=== PATIENT | female | born 1950 | race Caucasian/White ===

== ENCOUNTER 2017-08-13 02:07 | Observation (INO) | payer MEDICARE, BC ==
[~2017-08-13] VITALS: Ht 165.1 cm; Wt 82.0 kg
[2017-08-13 02:09] VITALS: BP 193/86; PULSE 112; RESP 16; TEMP 99.4; O2SAT 97
[2017-08-13 02:30] VITALS: RESP 19; O2SAT 99
[2017-08-13] MEDS ORDERED: SODIUM CHLOR 0.9% 1000 ML INJ 1,000 ML IV SCH (02:43)
[2017-08-13] MEDS ORDERED: SODIUM CHLORIDE 0.9% FLUSH 5 ML FLUSH IV FLUSH PRN (02:45)
--- NOTE | 2017-08-13 02:53 | PD ---
HPI Chief Complaint: Altered Mental Status Time Seen by Provider: 02:34 Travel History International Travel<30 days: No Contact w/Intl Traveler<30days: No Traveled to known affect area: No History of Present Illness HPI The patient is a 67-year-old female who presents to the emergency department for confusion. The states the patient underwent a partial colectomy for possible colon cancer 1 week ago Tuesday at [facility] by Dr. Hutchinson. The states the patient has had some increasing "nervousness" over the last week, however, today became confused. He also states the patient had one episode of fecal incontinence at home 2 days after the surgery. The states the patient has a history of bipolar affective disorder and had a manic episode 30 years ago with similar features. The patient denies any current physical complaints, but is a somewhat limited historian. She does complain of mild dysuria but denies any abdominal pain. She denies any headache, chest pain, or shortness of breath. The patient's primary physician is Dr. Daniels. The states the patient has been taken Tylenol for pain, states she has not been taking any narcotics for the postoperative pain. [facility] Past Medical History Narrative Medical Hypertension, hyperlipidemia, GERD Cardiovascular Problems: Yes (HTN) Past Surgical History Narrative Surgical Partial colectomy for colon cancer Social History Alcohol Use: No Tobacco Use: No Substance Use: No Allergies-Medications (Allergen,Severity, Reaction): Coded Allergies: No Known Allergies (Unverified , 08/13/17) Review of Systems ROS Limitations: Altered Mental Status, Poor Historian Except as stated in HPI: all other systems reviewed are Neg General / Constitutional: No: Fever Cardiovascular: No: Chest Pain or Discomfort Respiratory: No: Shortness of Breath Gastrointestinal: Positive: Other (surgery 1 week ago), No: Nausea, Vomiting, Abdominal Pain Genitourinary: Positive: Dysuria Neurologic: Positive: Change in Mentation Physical Exam Narrative GENERAL: Awake, alert, somewhat confused 67-year-old female who appears her stated age. SKIN: Focused skin assessment warm/dry. HEAD: Atraumatic. Normocephalic. EYES: Pupils equal and round. Pupils are 4 mm bilateral and reactive. ENT: No nasal bleeding or discharge. Slightly dry mucous membranes. NECK: Trachea midline. No JVD. CARDIOVASCULAR: Regular, tachycardic with a heart rate of 110. RESPIRATORY: No accessory muscle use. Clear to auscultation. Breath sounds equal bilaterally. GASTROINTESTINAL: Abdomen soft, postoperative scars noted, mild discomfort right lower quadrant. MUSCULOSKELETAL: No obvious deformities. No clubbing. No cyanosis. No edema. NEUROLOGICAL: Awake and alert. Alert and oriented to person, month, year, and benzol still operator. Slightly slow to answer questions. PSYCHIATRIC: Odd affect. Data Data Last Documented VS Vital Signs Date Time Temp Pulse Resp B/P (MAP) Pulse Ox O2 Delivery O2 Flow Rate FiO2 08/13/17 02:30 105 18 98 Room Air 08/13/17 02:30 08/13/17 02:09 99.4 Orders Orders Electrocardiogram (08/13/17 02:43) Ammonia (08/13/17 02:43) Complete Blood Count With Diff (08/13/17 02:43) Comprehensive Metabolic Panel (08/13/17 02:43) Creatine Kinase (Cpk) (08/13/17 02:43) Prothrombin Time / Inr (Pt) (08/13/17 02:43) Act Partial Throm Time (Ptt) (08/13/17 02:43) Troponin I (08/13/17 02:43) Thyroid Stimulating Hormone (08/13/17 02:43) Urinalysis - C+S If Indicated (08/13/17 02:43) Lactic Acid Sepsis Protocol (08/13/17 02:43) Blood Culture (08/13/17 02:43) Chest, Single Ap (08/13/17 02:43) Ct Brain W/O Iv Contrast(Rout) (08/13/17 02:43) Blood Glucose (08/13/17 02:43) Ecg Monitoring (08/13/17 02:43) Iv Access Insert/Monitor (08/13/17 02:43) Oximetry (08/13/17 02:43) Sodium Chloride 0.9% Flush (Ns Flush) (08/13/17 02:45) Sodium Chlor 0.9% 1000 Ml Inj (Ns 1000 M (08/13/17 02:43) Drug Screen, Random Urine (08/13/17 02:43) Alcohol (Ethanol) (08/13/17 02:43) Ct Abd/Pel W/O Iv Contrast (08/13/17 ) Consult General Surgery (08/13/17 ) Labs Laboratory Tests Test 08/13/17 02:40 08/13/17 04:05 White Blood Count 8.1 TH/MM3 Red Blood Count 4.40 MIL/MM3 Hemoglobin 10.1 GM/DL Hematocrit 32.8 % Mean Corpuscular Volume 74.6 FL Mean Corpuscular Hemoglobin 23.0 PG Mean Corpuscular Hemoglobin Concent 30.8 % Red Cell Distribution Width 26.4 % Platelet Count 408 TH/MM3 Mean Platelet Volume 8.3 FL Neutrophils (%) (Auto) 74.0 % Lymphocytes (%) (Auto) 11.9 % Monocytes (%) (Auto) 10.9 % Eosinophils (%) (Auto) 2.2 % Basophils (%) (Auto) 1.0 % Neutrophils # (Auto) 6.0 TH/MM3 Lymphocytes # (Auto) 1.0 TH/MM3 Monocytes # (Auto) 0.9 TH/MM3 Eosinophils # (Auto) 0.2 TH/MM3 Basophils # (Auto) 0.1 TH/MM3 CBC Comment AUTO DIFF Differential Comment AUTO DIFF CONFIRMED Prothrombin Time 11.4 SEC Prothromb Time International Ratio 1.0 RATIO Activated Partial Thromboplast Time 23.4 SEC Blood Urea Nitrogen 13 MG/DL Creatinine 0.99 MG/DL Random Glucose 135 MG/DL Total Protein 7.0 GM/DL Albumin 3.6 GM/DL Calcium Level 8.9 MG/DL Alkaline Phosphatase 88 U/L Aspartate Amino Transf (AST/SGOT) 21 U/L Alanine Aminotransferase (ALT/SGPT) 36 U/L Total Bilirubin 0.8 MG/DL Sodium Level 145 MEQ/L Potassium Level 3.2 MEQ/L Chloride Level 111 MEQ/L Carbon Dioxide Level 24.4 MEQ/L Anion Gap 10 MEQ/L Estimat Glomerular Filtration Rate 56 ML/MIN Lactic Acid Level 1.5 mmol/L Ammonia 46 MCMOL/L Total Creatine Kinase 173 U/L Troponin I 0.02 NG/ML Thyroid Stimulating Hormone 3rd Gen 0.855 uIU/ML Ethyl Alcohol Level LESS THAN 3 MG/DL Urine Color YELLOW Urine Turbidity CLEAR Urine pH 5.5 Urine Specific [place] 1.013 Urine Protein NEG mg/dL Urine Glucose (UA) NEG mg/dL Urine Ketones NEG mg/dL Urine Occult Blood NEG Urine Nitrite NEG Urine Bilirubin NEG Urine Urobilinogen LESS THAN 2.0 MG/DL Urine Leukocyte Esterase NEG Urine RBC LESS THAN 1 /hpf Urine WBC LESS THAN 1 /hpf Microscopic Urinalysis Comment CATH-CULT NOT IND MDM Medical Decision Making Medical Screen Exam Complete: Yes Emergency Medical Condition: Yes Medical Record Reviewed: Yes Interpretation(s) Last Impressions Head CT 08/13/17242 Signed Impressions: Service Date/Time: Sunday, August 13, 2017 02:48 - CONCLUSION: Negative noncontrast CT brain. Loc Lagos MD Chest X-Ray 08/13/17242 Signed Impressions: Service Date/Time: Sunday, August 13, 2017 02:46 - CONCLUSION: The lungs are clear. Loc Lagos MD Abdomen/Pelvis CT 08/13/17 0000 Signed Impressions: Service Date/Time: Sunday, August 13, 2017 02:59 - CONCLUSION: 1. Mild hyperdensity of the hepatic parenchyma adjacent to the gallbladder fossa is of uncertain significance. No defined mass seen and no evidence of gallstones. Recommend further characterization of this area with multiphase contrast enhanced CT of the liver. 2. Induration of the subcutaneous anterior abdominal wall fat right lower quadrant probably related to prior surgery. Loc Lagos MD Laboratory Tests Test 08/13/17 02:40 08/13/17 04:05 White Blood Count 8.1 TH/MM3 Red Blood Count 4.40 MIL/MM3 Hemoglobin 10.1 GM/DL Hematocrit 32.8 % Mean Corpuscular Volume 74.6 FL Mean Corpuscular Hemoglobin 23.0 PG Mean Corpuscular Hemoglobin Concent 30.8 % Red Cell Distribution Width 26.4 % Platelet Count 408 TH/MM3 Mean Platelet Volume 8.3 FL Neutrophils (%) (Auto) 74.0 % Lymphocytes (%) (Auto) 11.9 % Monocytes (%) (Auto) 10.9 % Eosinophils (%) (Auto) 2.2 % Basophils (%) (Auto) 1.0 % Neutrophils # (Auto) 6.0 TH/MM3 Lymphocytes # (Auto) 1.0 TH/MM3 Monocytes # (Auto) 0.9 TH/MM3 Eosinophils # (Auto) 0.2 TH/MM3 Basophils # (Auto) 0.1 TH/MM3 CBC Comment AUTO DIFF Differential Comment AUTO DIFF CONFIRMED Prothrombin Time 11.4 SEC Prothromb Time International Ratio 1.0 RATIO Activated Partial Thromboplast Time 23.4 SEC Blood Urea Nitrogen 13 MG/DL Creatinine 0.99 MG/DL Random Glucose 135 MG/DL Total Protein 7.0 GM/DL Albumin 3.6 GM/DL Calcium Level 8.9 MG/DL Alkaline Phosphatase 88 U/L Aspartate Amino Transf (AST/SGOT) 21 U/L Alanine Aminotransferase (ALT/SGPT) 36 U/L Total Bilirubin 0.8 MG/DL Sodium Level 145 MEQ/L Potassium Level 3.2 MEQ/L Chloride Level 111 MEQ/L Carbon Dioxide Level 24.4 MEQ/L Anion Gap 10 MEQ/L Estimat Glomerular Filtration Rate 56 ML/MIN Lactic Acid Level 1.5 mmol/L Ammonia 46 MCMOL/L Total Creatine Kinase 173 U/L Troponin I 0.02 NG/ML Thyroid Stimulating Hormone 3rd Gen 0.855 uIU/ML Ethyl Alcohol Level LESS THAN 3 MG/DL UA is negative Differential Diagnosis Differential diagnosis includes delirium, UTI, pneumonia, intra-abdominal abscess, postoperative abscess, bipolar affective disorder, elevated ammonia, hyponatremia, dehydration, subarachnoid hemorrhage, subdural hemorrhage. Narrative Course IV was established, labs are drawn and sent, and the patient was placed on cardiac telemetry monitoring and continuous pulse oximetry monitoring. EKG was ordered and interpreted. CT of the brain and abdomen/pelvis were obtained. UA was sent to lab. Chest x-ray was obtained. Chest x-rays unremarkable. CT the brain is negative. CT the abdomen and pelvis reveals postoperative changes. The patient's ammonia level is elevated at 46. Sodium is normal. The patient appears to have delirium, unsure if this is related to infectious source versus postoperative source. Therefore, patient will be 23 hour observation to the medical service in a routine consultation will be placed to her surgeon who performed the surgery one week ago. Physician Communication Physician Communication I discussed the patient with Dr. Gibson who agrees with 23 hour observation. Diagnosis Primary Impression: Altered mental status Qualified Codes: R41.0 - Disorientation, unspecified Additional Impression: Hyperammonemia Admitting Information Admitting Physician Requests: Observation Condition: Stable Binh Vizcaino MD Aug 13, 2017 02:52
--- NOTE | 2017-08-13 03:06 | RADRPT ---
EXAM DATE/TIME: 08/13/2017 02:46 [facility] COMPARISON: No previous studies available for comparison. INDICATIONS : Fever. MEDICAL HISTORY : Diabetes mellitus type II. Hypertension Altered mental status. SURGICAL HISTORY : None. ENCOUNTER: Initial ACUITY: 1 day PAIN SCORE: Non-responsive. LOCATION: Bilateral chest FINDINGS: A single view of the chest demonstrates the lungs to be symmetrically aerated without evidence of mas s, infiltrate or effusion. The cardiomediastinal contours are unremarkable. Deformity at the healed fractures of the posterolateral left 3rd through 6th ribs.. CONCLUSION: The lungs are clear. Loc Lagos MD on August 13, 2017 at 3:04 Board Certified Radiologist. This report was verified electronically.
[2017-08-13 03:14] LABS: BASOPHIL # 0.1 TH/MM3 (0-0.2); EOSINOPHIL # 0.2 TH/MM3 (0-0.4); EOSINOPHIL % 2.2 % (0.0-4.0); HEMATOCRIT 32.8 % (35.0-46.0); LYMPH % 11.9 % (9.0-44.0); MEAN CELL VOLUME 74.6 FL (80.0-100.0); MEAN CORPUSCULAR HGB CONC 30.8 % (32.0-36.0); MONO % 10.9 % (0.0-8.0); PLATELET COUNT 408 TH/MM3 (150-450); RED CELL DISTRIBUTION WIDTH 26.4 % (11.6-17.2); WHITE BLOOD COUNT 8.1 TH/MM3 (4.0-11.0)
--- NOTE | 2017-08-13 03:15 | RADRPT ---
EXAM DATE/TIME: 08/13/2017 02:48 [facility] COMPARISON: No previous studies available for comparison. INDICATIONS : Altered mental status. RADIATION DOSE: 56.35 CTDIvol (mGy) MEDICAL HISTORY : Non-responsive. SURGICAL HISTORY : Non-responsive. ENCOUNTER: Initial ACUITY: 1 day PAIN SCALE: 0/10 LOCATION: cranial TECHNIQUE: Multiple contiguous axial images were obtained of the head. Using automated exposure control and adj ustment of the mA and/or kV according to patient size, radiation dose was kept as low as reasonably a chievable to obtain optimal diagnostic quality images. DICOM format image data is available electro nically for review and comparison. FINDINGS: CEREBRUM: The ventricles are normal for age. No evidence of midline shift, mass lesion, hemorrhage or acute in farction. No extra-axial fluid collections are seen. POSTERIOR FOSSA: The cerebellum and brainstem are intact. The 4th ventricle is midline. The cerebellopontine angle i s unremarkable. EXTRACRANIAL: The visualized portion of the orbits is intact. SKULL: The calvaria is intact. No evidence of skull fracture. CONCLUSION: Negative noncontrast CT brain. Loc Lagos MD on August 13, 2017 at 3:13 Board Certified Radiologist. This report was verified electronically.
[2017-08-13 03:23] LABS: HEMO FLAGS AUTO DIFF
--- NOTE | 2017-08-13 03:23 | RADRPT ---
EXAM DATE/TIME: 08/13/2017 02:59 [facility] COMPARISON: No previous studies available for comparison. INDICATIONS : Abdominal pain. ORAL CONTRAST: No oral contrast ingested. RADIATION DOSE: 7.11 CTDIvol (mGy) MEDICAL HISTORY : Hypertension. SURGICAL HISTORY : None. ENCOUNTER: Initial ACUITY: 1 day PAIN SCALE: 6/10 LOCATION: abdomen TECHNIQUE: Volumetric scanning of the abdomen and pelvis was performed. Using automated exposure control and ad justment of the mA and/or kV according to patient size, radiation dose was kept as low as reasonably achievable to obtain optimal diagnostic quality images. DICOM format image data is available electro nically for review and comparison. FINDINGS: LOWER LUNGS: The visualized lower lungs are clear. LIVER: There is mild hyperdensity in the parenchyma of the liver adjacent to the gallbladder fossa. This is of uncertain significance on this noncontrast study. There is no evidence of fatty infiltration of the liver. No calcified gallstones. No dilation of the intrahepatic biliary system. SPLEEN: Normal size without lesion. PANCREAS: Within normal limits. KIDNEYS: Normal in size and shape. There is no mass, stone, or hydronephrosis. ADRENAL GLANDS: Within normal limits. VASCULAR: There is no aortic aneurysm. BOWEL/MESENTERY: Anastomosis suture in the right colon. No dilated loops of small or large bowel. ABDOMINAL WALL: Focal opacity in the subcutaneous fat right lower quadrant measuring 5.5 x 1.3 cm, probably related t o prior surgery. RETROPERITONEUM: There is no lymphadenopathy. BLADDER: No wall thickening or mass. REPRODUCTIVE: Flocculent calcifications in the uterine fundus suggests leiomyomata. No evidence of free fluid. INGUINAL: There is no lymphadenopathy or hernia. MUSCULOSKELETAL: Within normal limits for patient age. CONCLUSION: 1. Mild hyperdensity of the hepatic parenchyma adjacent to the gallbladder fossa is of uncertain sign ificance. No defined mass seen and no evidence of gallstones. Recommend further characterization of this area with multiphase contrast enhanced CT of the liver. 2. Induration of the subcutaneous anterior abdominal wall fat right lower quadrant probably related to prior surgery. Loc Lagos MD on August 13, 2017 at 3:15 Board Certified Radiologist. This report was verified electronically.
[2017-08-13 03:24] LABS: APTT (PATIENT) 23.4 SEC (24.3-30.1); PROTHROMBIN TIME - PATIENT 11.4 SEC (9.8-11.6)
[2017-08-13 03:25] LABS: ALT (GPT) 36 U/L (10-53); ANION GAP 10 MEQ/L (5-15); AST (GOT) 21 U/L (15-37); BICARBONATE 24.4 MEQ/L (21.0-32.0); BLOOD UREA NITROGEN 13 MG/DL (7-18); CHLORIDE 111 MEQ/L (98-107); GLOMERULAR FILTRATION RATE 56 ML/MIN (>89); POTASSIUM 3.2 MEQ/L (3.5-5.1); SODIUM (NA) 145 MEQ/L (136-145)
[2017-08-13 03:28] LABS: ALCOHOL LESS THAN 3 MG/DL (0-5)
[2017-08-13 03:35] LABS: ALKALINE PHOSPHATASE 88 U/L (45-117); CREATINE KINASE 173 U/L (26-192); TOTAL BILIRUBIN ADULT 0.8 MG/DL (0.2-1.0)
[2017-08-13 04:28] LABS: SCAN/DIFF AUTO DIFF CONFIRMED
[2017-08-13 04:30] LABS: BLOOD, URINE NEG (NEG); GLUCOSE,URINE NEG (NEG); KETONE, URINE NEG (NEG); NITRITE,URINE NEG (NEG); PH, URINE 5.5 (5.0-8.5); URINE COLOR YELLOW (YELLW/STRAW)
[2017-08-13 04:31] LABS: COMMENT (UR) CATH-CULT NOT IND; CULTURE IF INDICATED CATH CULTURE NOT IND
[2017-08-13] MEDS ORDERED: LACTULOSE SYRUP 20 GM/30 ML CUP PO PRN (04:45)
[2017-08-13] MEDS ORDERED: ACETAMINOPHEN 325 MG TAB PO PRN (04:45)
[2017-08-13] MEDS ORDERED: ONDANSETRON HCL 4 MG/2 ML VIAL IVP PRN (04:45)
[2017-08-13] MEDS ORDERED: MAGNESIUM HYDROXIDE SUSP 30 ML CUP PO PRN (04:45)
[2017-08-13] MEDS ORDERED: SENNOSIDES 8.6 MG TAB PO PRN (04:45)
[2017-08-13] MEDS ORDERED: SODIUM CHLORIDE 0.9% FLUSH 10 ML FLUSH IV FLUSH PRN (04:45)
[2017-08-13] MEDS ORDERED: BISACODYL 10 MG SUPP RECTAL PRN (04:45)
[2017-08-13] MEDS ORDERED: POTASSIUM CHLORIDE 20 MEQ CONTROLLED RELEASE TAB PO ONE (04:45)
--- NOTE | 2017-08-13 05:10 | HHI.HP ---
HPI Service [facility] Primary Care Physician Jeferson Daniels MD Admission Diagnosis Diagnoses: (1) Encephalopathy Diagnosis: Principal (2) Schizoaffective disorder Diagnosis: Principal (3) Hypokalemia Diagnosis: Principal (4) HTN (hypertension) Diagnosis: Principal (5) S/P colectomy Diagnosis: Principal Travel History International Travel<30 Days: No Contact w/Intl Traveler <30 Da: No Traveled to Known Affected Are: No History of Present Illness This is a 67-year-old male with a PMH of HTN, Hyperlipidemia, Schizoaffective Disorder and Colon CA who was brought to the ER secondary to AMS. states patient underwent Partial Colectomy at by Dr. Hutchinson approx 1wk ago, since the surgery pt has been increasingly confused/agitated. Per , symptoms similar to previous "manic episodes". No fever, chills, nausea, vomiting or diarrhea. Pt without complaints of abdominal pain. On arrival, BP 193/86, HR 112, O2 sat 97% on RA, Temp 99.4. CBC essentially unremarkable except for anemia. K+ 3.2. GFR 56. Lactic Acid 1.5. Ammonia 46. INR 1.0. UA negative. Urine Drug Screen negative. Alcohol negative. CT Head with no acute findings. CXR negative. CT Abd/Pelvis w/ mild hyperdensity of hepatic parenchyma adjacent to gallbladder of uncertain significance, induration or subcutaneous anterior abdominal wall fat likely related to surgery. While in ER , pt increasingly alert. She tells me that she does feel confused, reports that her symptoms seem similar to her manic episodes. Review of Systems Except as stated in HPI: all other systems reviewed are Neg ROS: 14 point review of systems otherwise negative. Past Family Social History Past Medical History PMH: HTN, Hyperlipidemia, Schizoaffective Disorder and Colon CA Past Surgical History PAST SURGICAL HISTORY: Partial Colectomy Allergies: Coded Allergies: No Known Allergies (Unverified , 08/13/17) Family History PAST FAMILY HISTORY: Reviewed. No h/o DM or CAD Social History PAST SOCIAL HISTORY: Negative for alcohol, tobacco or drugs. Physical Exam Vital Signs Vital Signs Date Time Temp Pulse Resp B/P (MAP) Pulse Ox O2 Delivery O2 Flow Rate FiO2 08/13/17 02:30 105 18 98 Room Air 08/13/17 02:30 19 99 Room Air 08/13/17 02:09 99.4 112 16 193/86 (121) 97 Room Air Physical Exam PE: GENERAL: Middle-aged white female no acute distress, lying on her stomach, slightly bizarre. HEENT: PERRLA, EOMI. No scleral icterus or conjunctival pallor. No lid lag or facial droop. CARDIOVASCULAR: Regular rate and rhythm. No obvious murmurs to auscultation. No chest tenderness to palpation. RESPIRATORY: No obvious rhonchi or wheezing. Clear to auscultation. Breath sounds equal bilaterally. GASTROINTESTINAL: Abdomen soft, non-tender, nondistended. BS normal. Surgical scars w/ no erythema MUSCULOSKELETAL: Extremities without clubbing, cyanosis, or edema. No obvious deformities. NEUROLOGICAL: Awake, alert and oriented x4. No focal neurologic deficits. Moving both upper and lower extremities spontaneously. Laboratory Laboratory Tests Test 08/13/17 02:40 08/13/17 04:05 White Blood Count 8.1 Red Blood Count 4.40 Hemoglobin 10.1 Hematocrit 32.8 Mean Corpuscular Volume 74.6 Mean Corpuscular Hemoglobin 23.0 Mean Corpuscular Hemoglobin Concent 30.8 Red Cell Distribution Width 26.4 Platelet Count 408 Mean Platelet Volume 8.3 Neutrophils (%) (Auto) 74.0 Lymphocytes (%) (Auto) 11.9 Monocytes (%) (Auto) 10.9 Eosinophils (%) (Auto) 2.2 Basophils (%) (Auto) 1.0 Neutrophils # (Auto) 6.0 Lymphocytes # (Auto) 1.0 Monocytes # (Auto) 0.9 Eosinophils # (Auto) 0.2 Basophils # (Auto) 0.1 CBC Comment AUTO DIFF Differential Comment AUTO DIFF CONFIRMED Prothrombin Time 11.4 Prothromb Time International Ratio 1.0 Activated Partial Thromboplast Time 23.4 Blood Urea Nitrogen 13 Creatinine 0.99 Random Glucose 135 Total Protein 7.0 Albumin 3.6 Calcium Level 8.9 Alkaline Phosphatase 88 Aspartate Amino Transf (AST/SGOT) 21 Alanine Aminotransferase (ALT/SGPT) 36 Total Bilirubin 0.8 Sodium Level 145 Potassium Level 3.2 Chloride Level 111 Carbon Dioxide Level 24.4 Anion Gap 10 Estimat Glomerular Filtration Rate 56 Lactic Acid Level 1.5 Ammonia 46 Total Creatine Kinase 173 Troponin I 0.02 Thyroid Stimulating Hormone 3rd Gen 0.855 Ethyl Alcohol Level LESS THAN 3 Urine Color YELLOW Urine Turbidity CLEAR Urine pH 5.5 Urine Specific [place] 1.013 Urine Protein NEG Urine Glucose (UA) NEG Urine Ketones NEG Urine Occult Blood NEG Urine Nitrite NEG Urine Bilirubin NEG Urine Urobilinogen LESS THAN 2.0 Urine Leukocyte Esterase NEG Urine RBC LESS THAN 1 Urine WBC LESS THAN 1 Microscopic Urinalysis Comment CATH-CULT NOT IND Urine Opiates Screen NEG Urine Barbiturates Screen NEG Urine Amphetamines Screen NEG Urine Benzodiazepines Screen NEG Urine Cocaine Screen NEG Urine Cannabinoids Screen NEG Date/Time Source Procedure Growth Status 08/13/17 02:45 Blood Peripheral Aerobic Blood Culture Pending Received 08/13/17 02:45 Blood Peripheral Anaerobic Blood Culture Pending Received Result Diagram: 08/13/17 0240 08/13/17 0240 Caprini VTE Risk Assessment Caprini VTE Risk Assessment: Mod/High Risk (score >= 2) Caprini Risk Assessment Model Point Value = 1 Point Value = 2 Point Value = 3 Point Value = 5 Age 41-60 Minor surgery BMI > 25 kg/m2 Swollen legs Varicose veins or History of unexplained or recurrent spontaneous Oral contraceptives or hormone replacement Sepsis (< 1 month) Serious lung disease, including pneumonia (< 1 month) Abnormal pulmonary function Acute myocardial infarction Congestive heart failure (< 1 month) History of inflammatory bowel disease Medical patient at bed rest Age 61-74 Arthroscopic surgery Major open surgery (> 45 min) Laparoscopic surgery (> 45 min) Malignancy Confined to bed (> 72 hours) Immobilizing plaster cast Central venous access Age >= 75 History of VTE Family history of VTE Factor V Leiden Prothrombin [id number] Lupus anticoagulant Anticardiolipin antibodies Elevated serum homocysteine Heparin-induced thrombocytopenia Other congenital or acquired thrombophilia Stroke (< 1 month) Elective arthroplasty Hip, pelvis, or leg fracture Acute spinal cord injury (< 1 month) Prophylaxis Regimen Total Risk Factor Score Risk Level Prophylaxis Regimen 0-1 Low Early ambulation 2 Moderate Order ONE of the following: *Sequential Compression Device (SCD) *Heparin 5000 units SQ BID 3-4 Higher Order ONE of the following medications: *Heparin 5000 units SQ TID *Enoxaparin/Lovenox 40 mg SQ daily (WT < 150 kg, CrCl > 30 mL/min) *Enoxaparin/Lovenox 30 mg SQ daily (WT < 150 kg, CrCl > 10-29 mL/min) *Enoxaparin/Lovenox 30 mg SQ BID (WT < 150 kg, CrCl > 30 mL/min) AND/OR *Sequential Compression Device (SCD) 5 or more Highest Order ONE of the following medications: *Heparin 5000 units SQ TID (Preferred with Epidurals) *Enoxaparin/Lovenox 40 mg SQ daily (WT < 150 kg, CrCl > 30 mL/min) *Enoxaparin/Lovenox 30 mg SQ daily (WT < 150 kg, CrCl > 10-29 mL/min) *Enoxaparin/Lovenox 30 mg SQ BID (WT < 150 kg, CrCl > 30 mL/min) AND *Sequential Compression Device (SCD) Assessment and Plan Problem List: (1) Encephalopathy ICD Code: G93.40 - Encephalopathy, unspecified (2) Schizoaffective disorder ICD Code: F25.9 - Schizoaffective disorder, unspecified (3) HTN (hypertension) ICD Code: I10 - Essential (primary) hypertension (4) Hypokalemia ICD Code: E87.6 - Hypokalemia (5) S/P colectomy ICD Code: Z90.49 - Acquired absence of other specified parts of digestive tract Assessment and Plan A/P: 1. Encephalopathy: Improved. Brought to ER secondary to AMS x1 wk, notes increasing confusion following Partial Colectomy approx 1wk ago, ? anesthesia-related, however and pt attribute symptoms to manic episodes. CT Head w/ no acute findings. Labs essentially unremarkable. U/a negative. Admit for Observation, Neuro Checks, Psych eval. 2. Schizoaffective Disorder: Unclear if currently under treatment, no medication list available, pt poor historian. Consult Psych for further eval as above. 3. Hypokalemia: Mild. K+ 3.2, will replace and recheck. 4. HTN: BP 190's on arrival, likely related to agitation, now calm. Repeat BP 170's. Will monitor. 5. S/p Partial Colectomy: approx 1wk ago at by Dr. Hutchinson for Colon CA , CT Abd/Pelvis w/ induration of sq fat likely related to prior surgery. Dr. Hutchinson consulted by ER physician for eval in am, no anticipated surgical intervention needed. 6. DVT Prophylaxis: SCD/Teds. 7. Social work for d/c planning as needed. 8. Case discussed w/ ER physician at length. Anabela Gibson MD Aug 13, 2017 05:10
[2017-08-13 06:00] VITALS: BP 178/88; PULSE 105; RESP 16; O2SAT 98
[2017-08-13 08:53] VITALS: BP 146/67; PULSE 84; RESP 16; O2SAT 100
[2017-08-13] MEDS: SODIUM CHLORIDE 0.9% FLUSH 10 ML FLUSH IV FLUSH SCH ×2 (08:57→20:04)
[2017-08-13] MEDS: DOCUSATE SODIUM 50 MG/SENNA 8.6 MG TAB PO SCH ×2 (09:00→20:04)
--- NOTE | 2017-08-13 11:32 | PD.PSY.CON ---
Provisional Diagnosis Admission Date Aug 13, 2017 at 06:11 [place]. Bipolar disorder by history History of Present Illness Service Psychiatry Consult Requested By Attending physician Reason for Consult Confusion. Primary Care Physician Jeferson Daniels MD HPI 67-year-old female with history of bipolar disorder, who recently underwent a partial colectomy surgery now presents in a state of confusion. Patient does appear to be more hyperkinetic, anxious, hyperverbal, with flight of ideas and tangential/circumstantial thinking. She may in fact be having a manic episode. However, there is no psychiatry bed in which to treat her. This physician did put the patient under a Bentley act as she is clearly unable to care for herself and her has reported he is unable to care for her. Due to the nature of her recent surgery, she is at risk for self neglect. Review of Systems Except as stated in HPI: all other systems reviewed are Neg Past Family Social History Coded Allergies: No Known Allergies (Unverified , 08/13/17) Unable to Obtain Active Prescriptions or Reported Meds Current Medications Medications (Trade) Dose Ordered Sig/Cathy Route Start Time Stop Time Status Last Admin (NS Flush) 2 ml UNSCH PRN IV FLUSH 08/13/17 04:45 (NS Flush) 2 ml BID IV FLUSH 08/13/17 09:00 08/13/17 08:57 (Zofran Inj) 4 mg Q6H PRN IVP 08/13/17 04:45 (Tylenol) 650 mg Q6H PRN PO 08/13/17 04:45 (Miley-Colace) 1 tab BID PO 08/13/17 09:00 (Milk Of Magnesia Liq) 30 ml Q12H PRN PO 08/13/17 04:45 (Senokot) 17.2 mg Q12H PRN PO 08/13/17 04:45 (Dulcolax Supp) 10 mg DAILY PRN RECTAL 08/13/17 04:45 (Lactulose Liq) 30 ml DAILY PRN PO 08/13/17 04:45 (Haldol Inj) 2 mg Q6H PRN IM 08/13/17 11:00 Family History History of bipolar disorder Social History Lives with her of over 30 years. One previous episode of anum 30 years ago. Does not abuse alcohol or drugs. Not currently employed. Patient's Strengths (min. 2) Verbal and has access to healthcare. Physical Exam Vital Signs Vital Signs Date Time Temp Pulse Resp B/P (MAP) Pulse Ox O2 Delivery O2 Flow Rate FiO2 08/13/17 09:24 08/13/17 08:53 84 16 100 Room Air 08/13/17 02:09 99.4 I/O 08/13/17 08/13/17 08/14/17 08:00 16:00 00:00 Intake Total 200 ml Balance 200 ml Lab Results Test 08/13/17 02:40 08/13/17 04:05 White Blood Count 8.1 TH/MM3 Red Blood Count 4.40 MIL/MM3 Hemoglobin 10.1 GM/DL Hematocrit 32.8 % Mean Corpuscular Volume 74.6 FL Mean Corpuscular Hemoglobin 23.0 PG Mean Corpuscular Hemoglobin Concent 30.8 % Red Cell Distribution Width 26.4 % Platelet Count 408 TH/MM3 Mean Platelet Volume 8.3 FL Neutrophils (%) (Auto) 74.0 % Lymphocytes (%) (Auto) 11.9 % Monocytes (%) (Auto) 10.9 % Eosinophils (%) (Auto) 2.2 % Basophils (%) (Auto) 1.0 % Neutrophils # (Auto) 6.0 TH/MM3 Lymphocytes # (Auto) 1.0 TH/MM3 Monocytes # (Auto) 0.9 TH/MM3 Eosinophils # (Auto) 0.2 TH/MM3 Basophils # (Auto) 0.1 TH/MM3 CBC Comment AUTO DIFF Differential Comment AUTO DIFF CONFIRMED Prothrombin Time 11.4 SEC Prothromb Time International Ratio 1.0 RATIO Activated Partial Thromboplast Time 23.4 SEC Blood Urea Nitrogen 13 MG/DL Creatinine 0.99 MG/DL Random Glucose 135 MG/DL Total Protein 7.0 GM/DL Albumin 3.6 GM/DL Calcium Level 8.9 MG/DL Alkaline Phosphatase 88 U/L Aspartate Amino Transf (AST/SGOT) 21 U/L Alanine Aminotransferase (ALT/SGPT) 36 U/L Total Bilirubin 0.8 MG/DL Sodium Level 145 MEQ/L Potassium Level 3.2 MEQ/L Chloride Level 111 MEQ/L Carbon Dioxide Level 24.4 MEQ/L Anion Gap 10 MEQ/L Estimat Glomerular Filtration Rate 56 ML/MIN Lactic Acid Level 1.5 mmol/L Ammonia 46 MCMOL/L Total Creatine Kinase 173 U/L Troponin I 0.02 NG/ML Thyroid Stimulating Hormone 3rd Gen 0.855 uIU/ML Ethyl Alcohol Level LESS THAN 3 MG/DL Urine Color YELLOW Urine Turbidity CLEAR Urine pH 5.5 Urine Specific [place] 1.013 Urine Protein NEG mg/dL Urine Glucose (UA) NEG mg/dL Urine Ketones NEG mg/dL Urine Occult Blood NEG Urine Nitrite NEG Urine Bilirubin NEG Urine Urobilinogen LESS THAN 2.0 MG/DL Urine Leukocyte Esterase NEG Urine RBC LESS THAN 1 /hpf Urine WBC LESS THAN 1 /hpf Microscopic Urinalysis Comment CATH-CULT NOT IND Urine Opiates Screen NEG Urine Barbiturates Screen NEG Urine Amphetamines Screen NEG Urine Benzodiazepines Screen NEG Urine Cocaine Screen NEG Urine Cannabinoids Screen NEG Date/Time Source Procedure Growth Status 08/13/17 02:45 Blood Peripheral Aerobic Blood Culture Pending Received 08/13/17 02:45 Blood Peripheral Anaerobic Blood Culture Pending Received Mental Status Examination Speech: Rapid Orientation: Person, Place Memory: Unremarkable Thought Process: Flight of Ideas, Tangential Thought Content: Bizarre thinking Hallucination Type: None Attention and Concentration: Abnormal Suicidal Ideation: No Previous Suicide Attempts: No Homicidal Ideation: No Previous Homicide Attempts: No Insight: Fair Judgment: Impulsive, Unrealistic Affect: Other Mood: Manic Motor Activity: Normal gait Assessment & Plan Problem List: (1) History of depressed bipolar disorder ICD Codes: F31.70 - Bipolar disorder, currently in remission, most recent episode unspecified Assessment & Plan Estimated LOS: days suggest continue physical medicine evaluation and treatment. Once medically cleared, if psychiatry able to accept her and treat her, she is likely to be transferred. Sonu Mcfadden MD Aug 13, 2017 11:32
[2017-08-13] MEDS ORDERED: LORazepam 2 MG/ML VIAL IV PUSH ONE (11:45)
[2017-08-13] MEDS ORDERED: CHOL1CAP PO (15:00)
[2017-08-13] MEDS: HALOPERIDOL LACTATE 5 MG/ML AMP IM PRN ×2 (15:00→22:55)
[2017-08-13] MEDS ORDERED: FERR325T8 PO (15:00)
[2017-08-13] MEDS ORDERED: PANT40TA3 PO (15:00)
[2017-08-13] MEDS ORDERED: HYDR-3799 PO (15:00)
[2017-08-13] MEDS ORDERED: METF1000 PO (15:00)
[2017-08-13] MEDS ORDERED: DEXTROSE 50% IN WATER 50 ML VIAL(D50) IV PUSH PRN (15:15)
[2017-08-13] MEDS ORDERED: cloNIDine HCL 0.1 MG TAB PO PRN (15:15)
[2017-08-13] MEDS ORDERED: GLUCAGON 1 MG/ML VIAL OTHER PRN (15:15)
--- NOTE | 2017-08-13 15:36 | HHI.PR ---
Subjective Remarks Follow-up altered mental status. The patient was seen by psychiatry earlier today who is Bentley acted the patient. Discussed with RN, the patient's had reported that she was like this on previous manic episodes. The patient states that she feels "like piss", when asked why she states people abdomen making her "do this" and starts rocking back and forth in the bed. She denies any abdominal pain. She reports normal bowel movements. She ate all of her lunch. Objective Vitals Vital Signs Date Time Temp Pulse Resp B/P (MAP) Pulse Ox O2 Delivery O2 Flow Rate FiO2 08/13/17 09:24 08/13/17 08:53 84 16 146/67 (93) 100 Room Air 08/13/17 06:00 105 16 178/88 (118) 98 Room Air 08/13/17 02:30 105 18 98 Room Air 08/13/17 02:30 19 99 Room Air 08/13/17 02:09 99.4 112 16 193/86 (121) 97 Room Air I/O 08/12/17 08/12/17 08/12/17 08/13/17 08/13/17 08/13/17 07:00 15:00 23:00 07:00 15:00 23:00 Intake Total 200 ml Balance 200 ml Intake IV Total 200 ml Result Diagram: 08/13/1723908/13/17239 Imaging Last Impressions Head CT 08/13/17242 Signed Impressions: Service Date/Time: Sunday, August 13, 2017 02:48 - CONCLUSION: Negative noncontrast CT brain. Loc Lagos MD Chest X-Ray 08/13/17242 Signed Impressions: Service Date/Time: Sunday, August 13, 2017 02:46 - CONCLUSION: The lungs are clear. Loc Lagos MD Abdomen/Pelvis CT 08/13/17 0000 Signed Impressions: Service Date/Time: Sunday, August 13, 2017 02:59 - CONCLUSION: 1. Mild hyperdensity of the hepatic parenchyma adjacent to the gallbladder fossa is of uncertain significance. No defined mass seen and no evidence of gallstones. Recommend further characterization of this area with multiphase contrast enhanced CT of the liver. 2. Induration of the subcutaneous anterior abdominal wall fat right lower quadrant probably related to prior surgery. Loc Lagos MD Objective Remarks GENERAL: Well-developed well-nourished. In no acute distress. SKIN: Warm and dry. No lesions noted. HEENT: Normocephalic. Pupils equal and round. Mucous membranes pink and moist. CARDIOVASCULAR: Regular rate and rhythm. No murmur appreciated. RESPIRATORY: No accessory muscle use. Clear to auscultation. Breath sounds equal bilaterally. GASTROINTESTINAL: Abdomen soft, non-tender, nondistended. Bowel sounds x4. Well healing surgical incisions with no signs of infection. MUSCULOSKELETAL: No obvious deformities. No clubbing or cyanosis. No edema. NEUROLOGICAL: Awake and alert. Moves upper and lower extremities spontaneously. Normal speech. PSYCHIATRIC: Rapid, pressured speech. Manic mood and affect. A/P Problem List: (1) Encephalopathy ICD Code: G93.40 - Encephalopathy, unspecified Status: Acute (2) Schizoaffective disorder ICD Code: F25.9 - Schizoaffective disorder, unspecified Status: Acute (3) HTN (hypertension) ICD Code: I10 - Essential (primary) hypertension Status: Acute (4) Hypokalemia ICD Code: E87.6 - Hypokalemia Status: Acute (5) S/P colectomy ICD Code: Z90.49 - Acquired absence of other specified parts of digestive tract Status: Chronic Assessment and Plan 67-year-old female with a PMH of HTN, Hyperlipidemia, Schizoaffective Disorder and Colon CA who presented secondary to AMS Acute encephalopathy: Seems to be secondary to acute anum. Brought to ER secondary to AMS x1 wk, notes increasing confusion following Partial Colectomy approx 1wk ago. and pt attribute symptoms to manic episodes. Reviewed: CT Head w/ no acute findings. Labs essentially unremarkable. U/a negative. -Neuro Checks -Psychiatry consulted and Bentley acted the patient. To be transferred when medically clear. Schizoaffective Disorder: With acute manic episode. Home med list reconciled, and it does not appear that patient is taking any psychotropic medications. -Haldol as needed for agitation Hypokalemia: Mild. K+ 3.2. Replaced. Follow-up labs. HTN: BP elevated upon arrival, likely due to agitation, better controlled currently. Clonidine as needed. Will monitor. S/p Partial Colectomy: approx 1wk ago at by Dr. Hutchinson for Colon CA, CT Abd/Pelvis w/ induration of sq fat likely related to prior surgery. General surgery consulted, appreciate input. Diabetes mellitus: Hold home metformin. SSI with Accu-Cheks. DVT Prophylaxis: SCD/Teds. Discharge Planning The patient is medically clear for discharge to inpatient psychiatry at this time. Follow-up general surgery recommendations for surgical clearance. Problem Qualifiers (1) Schizoaffective disorder: Qualified Codes: F25.0 - Schizoaffective disorder, bipolar type [place] Aug 13, 2017 15:36
[2017-08-13] MEDS: INSULIN ASPART SUPPLEMENTAL SCALE SQ SCH ×2 (17:00→21:00)
[2017-08-13] MEDS ORDERED: LORazepam 1 MG TAB PO PRN (18:00)
[2017-08-13 19:47] VITALS: BP 118/82; PULSE 113; RESP 19; TEMP 97.6; O2SAT 95
--- NOTE | 2017-08-13 19:56 | MB ---
cc: TRINI DASILVA,LORI DATE OF CONSULTATION 08/13/17 REASON FOR CONSULTATION Postoperative wound from previous laparoscopic-assisted colectomy done two weeks back by Dr. Hutchinson. HISTORY OF PRESENT ILLNESS This is a pleasant 67-year-old female who recently underwent a right colon resection by Dr. Hutchinson at another institution. She has been recovering well on and then had a psychiatric derangement episode. She was admitted to the ER and the medical and personnel wanted a surgeon just to evaluate her wounds to make sure this was not the source of her psychiatric derangement. PAST MEDICAL HISTORY Reviewed in the chart as the patient is not able to tell me anything as she is in a mental confusion state. It is all reviewed the chart. I talked to Dr. Hutchinson about her as well. He updated me on her previous history. PHYSICAL EXAMINATION She was laying in her clothes in the emergency room. She had urinary incontinence. I think she knew about it but did want to do anything about it. On examination, she is able to get up and walk around the room. In fact, she took all her clothes off in front of us. Her wound looks good. There is no erythema. There is tenderness. The wound is almost completely healed. It is a little bit swollen from the surgery which is typical. Neurologic - She looks a little confused and does not really answer questions. LABORATORY DATA White count eight, H&H of 10 and 32. Coags were normal. Chemistry essentially normal with exception of her ammonia, was fairly high at 46. Toxicology was clear. Urinalysis was clear as well. IMAGING STUDIES She had a CT scan of her head, abdomen and pelvis which is reviewed. No source of infection. ASSESSMENT Psychiatric breakdown being evaluated by medical personnel. PLAN At this time, no surgical intervention required. I think she has normal postop healing of her wound. I an not sure if she had a breakdown from some of the medicine she probably took in the postoperative period, although her drug screen was all negative. I find no source from her recent surgery to cause this psychiatric breakdown. MD FREDERIC Cornejo/ /7:05 PM /7:42 PM
[2017-08-13] MEDS: FERROUS SULFATE 325 MG (65 MG ELEMENTAL IRON) TAB PO SCH (20:04)
[2017-08-13] MEDS: PANTOPRAZOLE SOD 40 MG DELAYED RELEASE TAB PO SCH (20:04)
[2017-08-13] MEDS ORDERED: FENOFIBRIC ACID PO SCH (21:00)
[2017-08-13] MEDS ORDERED: [UNRECOGNIZED DRUG - OTHER] PO SCH (21:00)
[2017-08-14 05:50] LABS: AUTOMATED NEUTROPHIL # 4.4 TH/MM3 (1.8-7.7); BASOPHIL # 0.1 TH/MM3 (0-0.2); BASOPHIL % 1.3 % (0.0-2.0); EOSINOPHIL # 0.3 TH/MM3 (0-0.4); EOSINOPHIL % 5.2 % (0.0-4.0); HEMATOCRIT 31.6 % (35.0-46.0); LYMPHOCYTE # 0.9 TH/MM3 (1.0-4.8); MEAN CORPUSCULAR HEMOGLOBIN 23.7 PG (27.0-34.0); MEAN CORPUSCULAR HGB CONC 31.6 % (32.0-36.0); MONO % 13.4 % (0.0-8.0); NEUT % 66.1 % (16.0-70.0); PLATELET COUNT 319 TH/MM3 (150-450); RED BLOOD COUNT 4.22 MIL/MM3 (4.00-5.30); WHITE BLOOD COUNT 6.7 TH/MM3 (4.0-11.0)
[2017-08-14 05:57] LABS: HEMO FLAGS AUTO DIFF
[2017-08-14 06:08] LABS: ALKALINE PHOSPHATASE 85 U/L (45-117); TOTAL BILIRUBIN ADULT 0.6 MG/DL (0.2-1.0)
[2017-08-14 06:18] LABS: ALT (GPT) 29 U/L (10-53); ANION GAP 10 MEQ/L (5-15); AST (GOT) 33 U/L (15-37); BICARBONATE 22.9 MEQ/L (21.0-32.0); BLOOD UREA NITROGEN 16 MG/DL (7-18); CHLORIDE 108 MEQ/L (98-107); GLOMERULAR FILTRATION RATE 50 ML/MIN (>89); POTASSIUM 3.3 MEQ/L (3.5-5.1); SODIUM (NA) 141 MEQ/L (136-145)
[2017-08-14 07:18] LABS: PLATELET ESTIMATE SMEAR NORMAL (NORMAL); PLATELET MORPHOLOGY NORMAL (NORMAL); SCAN/DIFF AUTO DIFF CONFIRMED
[2017-08-14] MEDS ORDERED: NS + KCL 20 MEQ INJ 1,000 ML IV SCH (07:30)
[2017-08-14] MEDS ORDERED: POTASSIUM CHLORIDE 20 MEQ CONTROLLED RELEASE TAB PO ONE (08:00)
[2017-08-14] MEDS: INSULIN ASPART SUPPLEMENTAL SCALE SQ SCH ×4 (08:00→21:00)
--- NOTE | 2017-08-14 08:03 | HHI.PR ---
Subjective Remarks Follow-up for altered mental status/bipolar disorder with history recent surgery. Patient states she's feeling much better today. She does have some mild abdominal soreness. She denies any other acute complaints. She's been eating well. She states she's been having normal bowel movements. Objective Vitals Vital Signs Date Time Temp Pulse Resp B/P (MAP) Pulse Ox O2 Delivery O2 Flow Rate FiO2 08/13/17 19:47 97.6 113 19 118/82 (94) 95 08/13/17 09:24 08/13/17 08:53 84 16 146/67 (93) 100 Room Air I/O 08/13/17 08/13/17 08/13/17 08/14/17 08/14/17 08/14/17 07:00 15:00 23:00 07:00 15:00 23:00 Intake Total 200 ml Balance 200 ml Intake IV Total 200 ml Result Diagram: 08/14/17 0510 08/14/17 0510 Imaging Last Impressions Head CT 08/13/17242 Signed Impressions: Service Date/Time: Sunday, August 13, 2017 02:48 - CONCLUSION: Negative noncontrast CT brain. Loc Lagos MD Chest X-Ray 08/13/17242 Signed Impressions: Service Date/Time: Sunday, August 13, 2017 02:46 - CONCLUSION: The lungs are clear. Loc Lagos MD Abdomen/Pelvis CT 08/13/17 0000 Signed Impressions: Service Date/Time: Sunday, August 13, 2017 02:59 - CONCLUSION: 1. Mild hyperdensity of the hepatic parenchyma adjacent to the gallbladder fossa is of uncertain significance. No defined mass seen and no evidence of gallstones. Recommend further characterization of this area with multiphase contrast enhanced CT of the liver. 2. Induration of the subcutaneous anterior abdominal wall fat right lower quadrant probably related to prior surgery. Loc Lagos MD Objective Remarks GENERAL: Well-developed well-nourished. In no acute distress. SKIN: Warm and dry. No lesions noted. HEENT: Normocephalic. Pupils equal and round. Mucous membranes pink and moist. CARDIOVASCULAR: Regular rate and rhythm. No murmur appreciated. RESPIRATORY: No accessory muscle use. Clear to auscultation. Breath sounds equal bilaterally. GASTROINTESTINAL: Abdomen soft, non-tender, nondistended. Bowel sounds x4. Well healing surgical incisions. MUSCULOSKELETAL: No obvious deformities. No clubbing or cyanosis. No edema. NEUROLOGICAL: Awake and alert. Moves upper and lower extremities spontaneously. Normal speech. PSYCHIATRIC: Flat affect. Insight and judgment impaired. A/P Problem List: (1) Encephalopathy ICD Code: G93.40 - Encephalopathy, unspecified Status: Acute (2) Schizoaffective disorder ICD Code: F25.9 - Schizoaffective disorder, unspecified Status: Acute (3) HTN (hypertension) ICD Code: I10 - Essential (primary) hypertension Status: Chronic (4) Hypokalemia ICD Code: E87.6 - Hypokalemia Status: Acute (5) S/P colectomy ICD Code: Z90.49 - Acquired absence of other specified parts of digestive tract Status: Chronic Assessment and Plan 67-year-old female with a PMH of HTN, Hyperlipidemia, Schizoaffective Disorder and Colon CA who presented secondary to AMS Acute encephalopathy: Seems to be secondary to acute anum. Brought to ER secondary to AMS x1 wk, notes increasing confusion following Partial Colectomy approx 1wk ago. and pt attribute symptoms to manic episodes. Reviewed: CT Head w/ no acute findings. Labs essentially unremarkable. U/a negative. -Neuro Checks -Psychiatry consulted and Bentley acted the patient. To be transferred when medically clear. Schizoaffective Disorder: With acute manic episode. Home med list reconciled, and it does not appear that patient is taking any psychotropic medications. -Haldol and Ativan as needed for agitation Hypokalemia: Potassium remains 3.3 after replacement. Give oral and IV supplementation. Check magnesium level. Monitor. HTN: BP elevated upon arrival, likely due to agitation, better controlled currently off medications. Clonidine as needed. Will monitor. S/p Partial Colectomy: approx 1wk ago at by Dr. Hutchinson for Colon CA, CT Abd/Pelvis w/ induration of sq fat likely related to prior surgery. General surgery consulted, seen by Dr Phan, who found no source from her recent surgery to cause this psychiatric breakdown. Diabetes mellitus: Hold home metformin for now. SSI with Accu-Cheks. DVT Prophylaxis: SCD/Teds. Discharge Planning The patient is medically and surgically cleared for discharge to inpatient psychiatry at this time. Discharge to inpatient psychiatry. Awaiting bed for transfer. Problem Qualifiers (1) Schizoaffective disorder: Qualified Codes: F25.0 - Schizoaffective disorder, bipolar type Holland Rome Aug 14, 2017 08:03
[2017-08-14] MEDS: DOCUSATE SODIUM 50 MG/SENNA 8.6 MG TAB PO SCH ×2 (08:33→21:00)
[2017-08-14] MEDS: FENOFIBRATE 48 MG TAB PO SCH ×2 (08:33→21:14)
[2017-08-14] MEDS: SODIUM CHLORIDE 0.9% FLUSH 10 ML FLUSH IV FLUSH SCH ×2 (08:33→21:00)
[2017-08-14 09:21] VITALS: BP 125/77; PULSE 95; RESP 20; TEMP 97.8; O2SAT 96
[2017-08-14 12:21] VITALS: BP 127/60; PULSE 87; RESP 18; TEMP 98.2; O2SAT 96
[2017-08-14 20:20] VITALS: BP 143/85; PULSE 110; RESP 18; TEMP 98; O2SAT 97
[2017-08-14] MEDS: FERROUS SULFATE 325 MG (65 MG ELEMENTAL IRON) TAB PO SCH (21:14)
[2017-08-14] MEDS: PANTOPRAZOLE SOD 40 MG DELAYED RELEASE TAB PO SCH (21:14)
[2017-08-15 00:24] VITALS: BP 146/76; PULSE 93; RESP 18; TEMP 98.4; O2SAT 96
[2017-08-15 04:00] VITALS: BP 113/76; TEMP 98
[2017-08-15 04:13] VITALS: BP 168/86; PULSE 74; RESP 18; TEMP 98.1; O2SAT 97
[2017-08-15 05:53] LABS: POTASSIUM 3.9 MEQ/L (3.5-5.1)
[2017-08-15] MEDS: INSULIN ASPART SUPPLEMENTAL SCALE SQ SCH ×3 (08:00→17:00)
[2017-08-15] MEDS: SODIUM CHLORIDE 0.9% FLUSH 10 ML FLUSH IV FLUSH SCH (09:15)
[2017-08-15] MEDS: DOCUSATE SODIUM 50 MG/SENNA 8.6 MG TAB PO SCH (09:15)
[2017-08-15 10:09] VITALS: BP 169/82; PULSE 97; RESP 18; TEMP 97.9; O2SAT 94
[2017-08-15 12:05] VITALS: BP 159/100; PULSE 91; RESP 18; TEMP 98; O2SAT 91
--- NOTE | 2017-08-15 15:16 | HHI.PR ---
Subjective Remarks Follow-up for bipolar disorder with recent surgery. The patient states that she is anxious and hoping her will come and take her home today. She states she's been eating well. She reports normal bowel movements. Awaiting awaiting transfer to inpatient psychiatry. Objective Vitals Vital Signs Date Time Temp Pulse Resp B/P (MAP) Pulse Ox O2 Delivery O2 Flow Rate FiO2 08/15/17 12:05 98.0 91 18 159/100 (119) 91 08/15/17 10:09 97.9 97 18 169/82 (111) 94 08/15/17 04:13 98.1 74 18 168/86 (113) 97 08/15/17 04:00 98.0 113/76 (88) 08/15/17 00:24 98.4 93 18 146/76 (99) 96 08/14/17 20:20 98.0 110 18 143/85 (104) 97 Result Diagram: 08/14/17 0510 08/15/17 0527 Imaging Last Impressions Head CT 08/13/17242 Signed Impressions: Service Date/Time: Sunday, August 13, 2017 02:48 - CONCLUSION: Negative noncontrast CT brain. Loc Lagos MD Chest X-Ray 08/13/17242 Signed Impressions: Service Date/Time: Sunday, August 13, 2017 02:46 - CONCLUSION: The lungs are clear. Loc Lagos MD Abdomen/Pelvis CT 08/13/17 0000 Signed Impressions: Service Date/Time: Sunday, August 13, 2017 02:59 - CONCLUSION: 1. Mild hyperdensity of the hepatic parenchyma adjacent to the gallbladder fossa is of uncertain significance. No defined mass seen and no evidence of gallstones. Recommend further characterization of this area with multiphase contrast enhanced CT of the liver. 2. Induration of the subcutaneous anterior abdominal wall fat right lower quadrant probably related to prior surgery. Loc Lagos MD Objective Remarks GENERAL: Well-developed well-nourished. In no acute distress. SKIN: Warm and dry. No lesions noted. HEENT: Normocephalic. Pupils equal and round. Mucous membranes pink and moist. CARDIOVASCULAR: Regular rate and rhythm. No murmur appreciated. RESPIRATORY: No accessory muscle use. Clear to auscultation. Breath sounds equal bilaterally. GASTROINTESTINAL: Abdomen soft, non-tender, nondistended. Bowel sounds x4. Well healing surgical incisions. MUSCULOSKELETAL: No obvious deformities. No clubbing or cyanosis. No edema. NEUROLOGICAL: Awake and alert. Moves upper and lower extremities spontaneously. Normal speech. PSYCHIATRIC: Anxious mood and flat affect. Insight and judgment seem somewhat impaired. A/P Problem List: (1) Encephalopathy ICD Code: G93.40 - Encephalopathy, unspecified Status: Acute (2) Schizoaffective disorder ICD Code: F25.9 - Schizoaffective disorder, unspecified Status: Acute (3) HTN (hypertension) ICD Code: I10 - Essential (primary) hypertension Status: Chronic (4) Hypokalemia ICD Code: E87.6 - Hypokalemia Status: Resolved (5) S/P colectomy ICD Code: Z90.49 - Acquired absence of other specified parts of digestive tract Status: Chronic Assessment and Plan 67-year-old female with a PMH of HTN, Hyperlipidemia, Schizoaffective Disorder and Colon CA who presented secondary to AMS Acute encephalopathy: Seems to be secondary to acute anum. Brought to ER secondary to AMS x1 wk, notes increasing confusion following Partial Colectomy approx 1wk ago. and pt attribute symptoms to manic episodes. Reviewed: CT Head w/ no acute findings. Labs essentially unremarkable. U/a negative. -Neuro Checks -Psychiatry consulted and Bentley acted the patient. The patient is medically clear for transfer to inpatient psychiatry awaiting a bed. Schizoaffective Disorder: With acute manic episode. Home med list reconciled, and it does not appear that patient is taking any psychotropic medications. -Haldol and Ativan as needed for agitation Hypokalemia: Potassium 3.3, given oral and IV supplementation. Potassium 3.9. Magnesium within normal limits at 1.9. Improved. HTN: BP elevated upon arrival, likely due to agitation. BP has been a bit labile here. Resume hydralazine at night. Clonidine as needed. Will monitor. S/p Partial Colectomy: approx 1wk ago at by Dr. Hutchinson for Colon CA, CT Abd/Pelvis w/ induration of sq fat likely related to prior surgery. General surgery consulted, seen by Dr Phan, who found no source from her recent surgery to cause this psychiatric breakdown. Diabetes mellitus: Hold home metformin for now. SSI with Accu-Cheks. DVT Prophylaxis: SCD/Teds. Discharge Planning The patient is medically and surgically cleared for discharge to inpatient psychiatry at this time. Discharged to inpatient psychiatry awaiting bed for transfer, D/W RN and CM. Problem Qualifiers (1) Schizoaffective disorder: Qualified Codes: F25.0 - Schizoaffective disorder, bipolar type Holland Rome Aug 15, 2017 15:16
[2017-08-15 16:20] VITALS: BP 149/89; PULSE 93; RESP 20; TEMP 98.1; O2SAT 94
--- NOTE | 2017-08-15 17:51 | HHI.DS ---
Discharge Summary Admission Date Aug 13, 2017 at 06:11 Discharge Date: Aug 15, 2017 Admitting Diagnosis (1) Encephalopathy ICD Code: G93.40 - Encephalopathy, unspecified Diagnosis: Principal Status: Acute (2) Schizoaffective disorder ICD Code: F25.9 - Schizoaffective disorder, unspecified Diagnosis: Principal Status: Acute (3) HTN (hypertension) ICD Code: I10 - Essential (primary) hypertension Diagnosis: Secondary Status: Chronic (4) Hypokalemia ICD Code: E87.6 - Hypokalemia Status: Resolved (5) S/P colectomy ICD Code: Z90.49 - Acquired absence of other specified parts of digestive tract Diagnosis: Secondary Status: Chronic Procedures None Brief History - From Admission This is a 67-year-old male with a PMH of HTN, Hyperlipidemia, Schizoaffective Disorder and Colon CA who was brought to the ER secondary to AMS. states patient underwent Partial Colectomy at by Dr. Hutchinson approx 1wk ago, since the surgery pt has been increasingly confused/agitated. Per , symptoms similar to previous "manic episodes". No fever, chills, nausea, vomiting or diarrhea. Pt without complaints of abdominal pain. On arrival, BP 193/86, HR 112, O2 sat 97% on RA, Temp 99.4. CBC essentially unremarkable except for anemia. K+ 3.2. GFR 56. Lactic Acid 1.5. Ammonia 46. INR 1.0. UA negative. Urine Drug Screen negative. Alcohol negative. CT Head with no acute findings. CXR negative. CT Abd/Pelvis w/ mild hyperdensity of hepatic parenchyma adjacent to gallbladder of uncertain significance, induration or subcutaneous anterior abdominal wall fat likely related to surgery. While in ER , pt increasingly alert. She tells me that she does feel confused, reports that her symptoms seem similar to her manic episodes. CBC/BMP: 08/14/17 0510 08/15/17 0527 Significant Findings Laboratory Tests Test 08/13/17 02:40 08/13/17 04:05 08/14/17 05:10 08/15/17 05:27 Hemoglobin 10.1 GM/DL (11.6-15.3) 10.0 GM/DL (11.6-15.3) Hematocrit 32.8 % (35.0-46.0) 31.6 % (35.0-46.0) Mean Corpuscular Volume 74.6 FL (80.0-100.0) 75.0 FL (80.0-100.0) Mean Corpuscular Hemoglobin 23.0 PG (27.0-34.0) 23.7 PG (27.0-34.0) Mean Corpuscular Hemoglobin Concent 30.8 % (32.0-36.0) 31.6 % (32.0-36.0) Red Cell Distribution Width 26.4 % (11.6-17.2) 27.0 % (11.6-17.2) Neutrophils (%) (Auto) 74.0 % (16.0-70.0) Monocytes (%) (Auto) 10.9 % (0.0-8.0) 13.4 % (0.0-8.0) Activated Partial Thromboplast Time 23.4 SEC (24.3-30.1) Random Glucose 135 MG/DL (74-106) 224 MG/DL (74-106) 144 MG/DL (74-106) Potassium Level 3.2 MEQ/L (3.5-5.1) 3.3 MEQ/L (3.5-5.1) Chloride Level 111 MEQ/L (98-107) 108 MEQ/L (98-107) 112 MEQ/L (98-107) Estimat Glomerular Filtration Rate 56 ML/MIN (>89) 50 ML/MIN (>89) 66 ML/MIN (>89) Ammonia 46 MCMOL/L (11-32) Eosinophils (%) (Auto) 5.2 % (0.0-4.0) Lymphocytes # (Auto) 0.9 TH/MM3 (1.0-4.8) Creatinine 1.09 MG/DL (0.50-1.00) Imaging Last Impressions Head CT 08/13/17 0243 Signed Impressions: Service Date/Time: Sunday, August 13, 2017 02:48 - CONCLUSION: Negative noncontrast CT brain. Loc Lagos MD Chest X-Ray 08/13/17 0243 Signed Impressions: Service Date/Time: Sunday, August 13, 2017 02:46 - CONCLUSION: The lungs are clear. Loc Lagos MD Abdomen/Pelvis CT 08/13/17 0000 Signed Impressions: Service Date/Time: Sunday, August 13, 2017 02:59 - CONCLUSION: 1. Mild hyperdensity of the hepatic parenchyma adjacent to the gallbladder fossa is of uncertain significance. No defined mass seen and no evidence of gallstones. Recommend further characterization of this area with multiphase contrast enhanced CT of the liver. 2. Induration of the subcutaneous anterior abdominal wall fat right lower quadrant probably related to prior surgery. Loc Lagos MD PE at Discharge GENERAL: Well-developed well-nourished. In no acute distress. SKIN: Warm and dry. No lesions noted. HEENT: Normocephalic. Pupils equal and round. Mucous membranes pink and moist. CARDIOVASCULAR: Regular rate and rhythm. No murmur appreciated. RESPIRATORY: No accessory muscle use. Clear to auscultation. Breath sounds equal bilaterally. GASTROINTESTINAL: Abdomen soft, non-tender, nondistended. Bowel sounds x4. Well healing surgical incisions. MUSCULOSKELETAL: No obvious deformities. No clubbing or cyanosis. No edema. NEUROLOGICAL: Awake and alert. Moves upper and lower extremities spontaneously. Normal speech. PSYCHIATRIC: Anxious mood and flat affect. Insight and judgment seem somewhat impaired. Hospital Course The patient has been presented due to altered mental status similar to previous episodes of anum associated with her bipolar disorder. The patient was admitted to medicine because she had a partial colectomy done approximately 1 week ago. The patient was evaluated by general surgery who could not find any source from her recent surgery to contribute to this psychiatric breakdown. Medical workup was essentially unremarkable. Psychiatry consulted, [facility] acted to the placement, and recommended transfer to inpatient psychiatry when medically cleared. The patient was medically and surgically cleared, received a bed and inpatient psychiatry, and was discharged there. Pt Condition on Discharge: Stable Discharge Disposition: Disc to Psych Care Fac Discharge Time: > 30 minutes Discharge Instructions DIET: Follow Instructions for: Diabetic Diet Activities you can perform: Regular-No Restrictions Follow up Referrals: PCP Follow-up - 1 Week with Jeferson Daniels MD Psychiatry Adult - As Per Protocol Continued Medications: Choline Fenofibrate (Fenofibric Acid Dr) 45 mg Capdr 45 MG PO HS, #30 CAP 0 Refills Ferrous Sulfate (Ferrous Sulfate) 325 Mg (65 Mg Iron) Tablet 325 MG PO HS for Nutritional Supplement, #60 TAB 0 Refills Hydralazine HCl (Hydralazine HCl) 25 Mg Tablet 25 MG PO HS for Blood Pressure Management, #60 TAB 0 Refills Metformin (Metformin) 1,000 Mg Tab 1000 MG PO BIDPC for Blood Sugar Management, #60 TAB 0 Refills With meals Pantoprazole (Pantoprazole) 40 Mg Tab 40 MG PO HS for Reflux, #30 TAB 0 Refills Holland Rome Aug 15, 2017 17:51
[2017-08-15] MEDS ORDERED: hydrALAZINE HCL 25 MG TAB PO SCH (21:00)
== END 2017-08-15 18:26 ==
LOC: NEPE 02:07 → NEDA 06:11 → NEPGCP 09:27
PROVIDERS: ADMIT Hospitalist; ATTEND Hospitalist
DX: G93.40 Encephalopathy, unspecified (principal); F25.0 Schizoaffective disorder, bipolar type; E11.9 Type 2 diabetes mellitus without complications; I10 Essential (primary) hypertension; E87.6 Hypokalemia; E78.5 Hyperlipidemia, unspecified; C18.9 Malignant neoplasm of colon, unspecified; D64.9 Anemia, unspecified; R45.1 Restlessness and agitation; Z90.49 Acquired absence of other specified parts of digestive tract; Z79.84 Long term (current) use of oral hypoglycemic drugs
CPT/HCPCS: 70450; 71010; 74176; 80053; 80307; 81001; 82140; 82550; 82948; 83605; 84443; 84484; 85025; 85610; 85730; 87040; 96361; 96372; 96374; 99285; G0378; J1630; J1815; J2060; J7030; 80048; 83735; J3480

== ENCOUNTER 2017-08-15 18:33 | Inpatient (IN) | payer MEDICARE, BC ==
[~2017-08-15] VITALS: Ht 165.1 cm; Wt 77.1 kg
[~2017-08-15 18:33] MED LIST: CHOL1CAP PO; FERR325T8 PO; HYDR-3799 PO; METF1000 PO; PANT40TA3 PO
[2017-08-15 19:33] VITALS: BP 142/71; PULSE 101; RESP 18; TEMP 98.6
[2017-08-15] MEDS ORDERED: LORazepam 2 MG/ML VIAL - age > 65 yrs IM PRN (20:30)
[2017-08-15] MEDS ORDERED: MAGNESIUM HYDROXIDE SUSP 30 ML CUP PO PRN (20:30)
[2017-08-15] MEDS ORDERED: ALUMINUM/MAGNESIUM/SIMETH 30 ML CUP PO PRN (20:30)
[2017-08-15] MEDS: REMOVE OLD NICOTINE PATCH T-DERMAL SCH (21:00)
[2017-08-16 06:24] VITALS: BP 111/72; PULSE 84; RESP 18; TEMP 98; O2SAT 98
[2017-08-16] MEDS ORDERED: DEXTROSE 50% IN WATER 50 ML VIAL(D50) IV PUSH PRN (07:30)
[2017-08-16] MEDS ORDERED: GLUCAGON 1 MG/ML VIAL OTHER PRN (07:30)
[2017-08-16] MEDS: INSULIN ASPART SUPPLEMENTAL SCALE SQ SCH ×4 (08:00→20:33)
[2017-08-16 08:36] LABS: ANION GAP 7 MEQ/L (5-15); BICARBONATE 24.3 MEQ/L (21.0-32.0); BLOOD UREA NITROGEN 18 MG/DL (7-18); CHLORIDE 112 MEQ/L (98-107); GLOMERULAR FILTRATION RATE 59 ML/MIN (>89); POTASSIUM 4.1 MEQ/L (3.5-5.1); SODIUM (NA) 143 MEQ/L (136-145)
[2017-08-16 08:38] LABS: HDL CHOLESTEROL 29.2 MG/DL (40.0-60.0); LDL CHOLESTEROL 68 MG/DL (0-99)
[2017-08-16] MEDS: NICOTINE 21 MG/24 HR PATCH T-DERMAL SCH (09:00)
[2017-08-16 10:27] LABS: HEMOGLOBIN A1b 1.6 %; HEMOGLOBIN Ao 85.5 %; HEMOGLOBIN LA1C 2.3 %; HEMOGLOBIN P3 5.1 %
--- NOTE | 2017-08-16 16:01 | PD.CONS ---
HPI Service [facility] Consult Requested By Dr. Mcfadden Reason for Consult Medical management and postop care Primary Care Physician Jeferson Daniels MD Diagnoses: History of Present Illness This is a 67-year-old female with a history of hypertension, hyperlipidemia, SAD and colon cancer. She presented to the emergency room because of altered mental status secondary to her mental condition. She was admitted to the medical floor because of recent colectomy for colon cancer. Her workup was unremarkable and was then transferred to the psychiatric floor. She was also evaluated by general surgery. At this time, patient has no complaints denies visual or auditory hallucinations. Case discussed with RN whom I advised to contact patient surgeon or family regarding wound care. All other systems reviewed negative Review of Systems Except as stated in HPI: all other systems reviewed are Neg Past Family Social History Allergies: Coded Allergies: No Known Allergies (Unverified , 08/13/17) Past Medical History As previously mentioned Past Surgical History As previously mentioned Reported Medications Pantoprazole (Pantoprazole Sodium) 40 Mg Tab 40 Mg PO HS Ferrous Sulfate 325 Mg (65 Mg Iron) Tablet 325 Mg PO HS Hydralazine HCl 25 Mg Tablet 25 Mg PO HS Fenofibric Acid Dr (Choline Fenofibrate DR) 45 mg Capdr 45 Mg PO HS Metformin (Metformin HCl) 1,000 Mg Tab 1,000 Mg PO BIDPC With meals Family History No cancer Social History Doesn't smoke or drink Physical Exam Vital Signs Vital Signs Date Time Temp Pulse Resp B/P (MAP) Pulse Ox O2 Delivery O2 Flow Rate FiO2 08/16/17 06:24 98.0 84 18 111/72 (85) 98 08/15/17 19:33 98.6 101 18 142/71 (94) Physical Exam GENERAL: This is a well-nourished, well-developed patient, in no apparent distress. SKIN: No rashes, ecchymoses or lesions. Cool and dry. HEAD: Atraumatic. Normocephalic. No temporal or scalp tenderness. EYES: Pupils equal round and reactive. Extraocular motions intact. No scleral icterus. No injection or drainage. ENT: Nose without bleeding, purulent drainage or septal hematoma. Throat without erythema, tonsillar hypertrophy or exudate. Uvula midline. Airway patent. NECK: Trachea midline. No JVD or lymphadenopathy. Supple, nontender, no meningeal signs. CARDIOVASCULAR: Regular rate and rhythm without murmurs, gallops, or rubs. RESPIRATORY: Clear to auscultation. Breath sounds equal bilaterally. No wheezes , rales, or rhonchi. GASTROINTESTINAL: Abdomen soft, non-tender, nondistended. Incision sites no signs of infection. No guarding. MUSCULOSKELETAL: Extremities without clubbing, cyanosis, or edema. No joint tenderness, effusion, or edema noted. No calf tenderness. Negative Homans sign bilaterally. NEUROLOGICAL: Awake and alert. Cranial nerves II through XII intact. Motor and sensory grossly within normal limits. Five out of 5 muscle strength in all muscle groups. Normal speech. Laboratory Laboratory Tests Test 08/16/17 07:37 Blood Urea Nitrogen 18 Creatinine 0.94 Random Glucose 124 Calcium Level 9.1 Sodium Level 143 Potassium Level 4.1 Chloride Level 112 Carbon Dioxide Level 24.3 Anion Gap 7 Estimat Glomerular Filtration Rate 59 Hemoglobin A1c 5.5 Triglycerides Level 223 Cholesterol Level 142 LDL Cholesterol 68 HDL Cholesterol 29.2 Cholesterol/HDL Ratio 4.86 Result Diagram: 08/16/17 0737 Assessment and Plan Assessment and Plan This is a 67-year-old female with a history of hypertension, hyperlipidemia, SAD and colon cancer. She presented to the emergency room because of altered mental status secondary to her mental condition. She was admitted to the medical floor because of recent colectomy for colon cancer. Her workup was unremarkable and was then transferred to the psychiatric floor. She was also evaluated by general surgery. Consultation has been requested by her attending to evaluate and manage multiple medical conditions including postoperative care. Altered mental status secondary to SAD. UA, UDS head CT unremarkable. Further management per psychiatry Hypertension. Stable restart home medication hydralazine once confirmed by RN Hyperlipidemia. LDL 68. This is well-controlled Colon cancer status post colectomy. Wound care per general surgery. Outpatient follow up Gen. surgery Diabetes mellitus. Monitor fingersticks with sliding scale coverage. Restart metformin when confirmed DVT prophylaxis, patient ambulatory Discussed Condition With Patient Wagner Tejeda MD Aug 16, 2017 16:01
--- NOTE | 2017-08-16 16:10 | HHI.HP ---
Provisional Diagnosis Admission Date Aug 15, 2017 at 18:33 [place] I. Schizoaffective disorder [place] II. Deferred [place] III. Diabetes mellitus as per patient [place] IV. Recent move to [place] from out of state, limited social support [place] V. 35 Certification of Person's Competence To Provide Express and Informed Consent I have personally examined Jerica Willard , a person being served at [facility] on, Aug 16, 2017 15:58. Express and informed consent means consent voluntarily given in writing, by a competent person, after sufficient explanation and disclosure of the subject matter involved to enable the person to make a knowing and willful decision without any element of force, fraud, deceit, duress, or other form of constraint or coercion. This person is 18 years of age or older, is not now known to be incompetent to consent to treatment with a guardian advocate, and does not have a health care surrogate or proxy currently making medical treatment decisions. I have found this person to be one of the following: [] Competent to provide express and informed consent, as defined above, for voluntary admission to this facility and is competent to provide express and informed consent for treatment. He/she has the consistent capacity to make well reasoned, willful, and knowing decisions concerning his or her medical or mental health treatment. The person fully and consistently understands the purpose of the admission for examination/placement and is fully capable of personally exercising all rights assured [place] [x] Incompetent to provide express and informed consent to voluntary admission, and this is incompetent to provide express and informed consent to treatment. The person must be transferred to involuntary status and a petition for a guardian advocate filed with the Circuit Court. [] Refusing to provide express and informed consent to voluntary admission but is competent to provide express and informed consent for treatment. The person must be discharged or transferred to involuntary status. Form shall be completed within 24 hours of a person's arrival at the receiving facility and filed in the clinical record of each person: 1. Admitted on a voluntary basis 2. Permitted to provide express and informed consent to his/her own treatment 3. Allowed to transfer from involuntary to voluntary status 4. Prior to permitting a person to consent to his or her own treatment after having been previously found incompetent to consent to treatment. History of Present Illness Capacity: Has Capacity (has capacity for medications) HPI Patient is a 67-year-old woman, with 2 adult children, retired on social security benefits with a past psychiatric history of depression, bipolar disorder as per patient, 2 prior psychiatric hospitalizations, no previous suicide attempts or self-injurious behavior was brought into the hospital under [facility] act as it was reported the patient was manic, confused, psychotic. Patient was transferred to the inpatient psychiatric unit for further management and evaluation. Patient was found lying in hospital bed but able to engage in interview today. Patient states that she had a colonoscopy to get the cancer out where she was diagnosed on 08/05/17. She states that she is here to find out why sees afraid, referring to the to have chemotherapy for recent cancer diagnoses or surgery. She states that her brought her to the hospital as he was afraid that she was trying to hurt herself. Patient was unable to elaborate on why has been was afraid she would hurt herself. Patient states that she has stated that she wanted to hurt herself. Patient reports her mood being pretty good for the past couple of weeks, but unsure if she had been feeling sad or depressed. Patient states that she sleep has been kind of edgy that his appetite energy or concentration denies suicidal ideations denies any decrease in hobbies or activities, denies any auditory or visual hallucinations denies any delusions at this time. Patient also mentions I think the baby apartment is behind me but was unable to elaborate patient also noted during interview to be stating that she had tomatoes brought in her IV and when asked why tomatoes she states it makes my blood red. Patient noted to be tangential confused at times since I disorganized during interview. Psychiatric family history: Denies Past psychiatric history: Self-reported diagnosis of bipolar disorder and depression, two previous psychiatric hospitalization, denies any previous suicide attempt or self-injurious behavior. She denies any history of physical or sexual abuse in the past. Substance use disorder: Alcohol use twice per year. Patient denies any previous illegal substance use. Past medical history: Diabetes mellitus Allergies: NKDA Social history: with 2 adult children, retired on social security benefits reports having moved to [place] in February.. Review of Systems Except as stated in HPI: all other systems reviewed are Neg Past Psych History Psychological trauma history Denies history of abuse Violence risk - others (6 mos) Low Violence risk - self (6 mos) Low Substance Abuse History Drugs/Alcohol past 12 months Alcohol use twice per year. Patient denies any previous illegal substance use. Past Family Social History Coded Allergies: No Known Allergies (Unverified , 08/13/17) Reported Medications Pantoprazole (Pantoprazole) 40 Mg Tab, 40 MG PO HS for Reflux, #30 TAB 0 Refills 08/13/17 Ferrous Sulfate (Ferrous Sulfate) 325 Mg (65 Mg Iron) Tablet, 325 MG PO HS for Nutritional Supplement, #60 TAB 0 Refills 08/13/17 Hydralazine HCl (Hydralazine HCl) 25 Mg Tablet, 25 MG PO HS for Blood Pressure Management, #60 TAB 0 Refills 08/13/[address] (Fenofibric Acid Dr) 45 mg Capdr, 45 MG PO HS, #30 CAP 0 Refills 08/13/17 Metformin (Metformin) 1,000 Mg Tab, 1000 MG PO BIDPC for Blood Sugar Management , #60 TAB 0 Refills With meals 08/13/17 Current Medications Medications (Trade) Dose Ordered Sig/Cathy Route Start Time Stop Time Status Last Admin (Ativan) 0.5 mg Q12H PRN PO 08/15/17 20:30 (Ativan Inj) 0.5 mg Q12H PRN IM 08/15/17 20:30 (Tylenol) 650 mg Q4H PRN PO 08/15/17 20:30 (Milk Of Magnesia Liq) 30 ml DAILY PRN PO 08/15/17 20:30 (Mag-Al Plus Susp Liq) 30 ml Q6H PRN PO 08/15/17 20:30 (Habitrol 21 Mg Patch.24 Hr) 1 patch DAILY T-DERMAL 08/16/17 09:00 Miscellaneous Information 1 HS T-DERMAL 08/15/17 21:00 (D50w (Vial) Inj) 50 ml UNSCH PRN IV PUSH 08/16/17 07:30 (Glucagon Inj) 1 mg UNSCH PRN OTHER 08/16/17 07:30 (NovoLOG SUPPLEMENTAL SCALE) 1 ACHS SLIDING SCALE SQ 08/16/17 08:00 Family History Denies Social History with 2 adult children, retired on social security benefits reports having moved to [place] in February.. Patient's Strengths (min. 2) Verbally and communicative Physical Exam Patient not noted to be in acute distress, no gross motor abnormalities, no tremors of EPS, no psychomotor agitation or retardation Vital Signs Vital Signs Date Time Temp Pulse Resp B/P (MAP) Pulse Ox O2 Delivery O2 Flow Rate FiO2 08/16/17 06:24 98.0 84 18 111/72 (85) 98 I/O 08/16/17 08/16/17 08/17/17 08:00 16:00 00:00 Intake Total 600 ml Balance 600 ml Lab Results Labs reviewed. Test 08/16/17 07:37 Blood Urea Nitrogen 18 MG/DL Creatinine 0.94 MG/DL Random Glucose 124 MG/DL Calcium Level 9.1 MG/DL Sodium Level 143 MEQ/L Potassium Level 4.1 MEQ/L Chloride Level 112 MEQ/L Carbon Dioxide Level 24.3 MEQ/L Anion Gap 7 MEQ/L Estimat Glomerular Filtration Rate 59 ML/MIN Hemoglobin A1c 5.5 % Triglycerides Level 223 MG/DL Cholesterol Level 142 MG/DL LDL Cholesterol 68 MG/DL HDL Cholesterol 29.2 MG/DL Cholesterol/HDL Ratio 4.86 RATIO Mental Status Examination Appearance Patient appears stated age, in hospital gown lying in hospital bed, fair hygiene and grooming, calm and cooperative interview. Fair eye contact Speech: Pressured (slightly) Orientation: x3 Memory: Recent (slightly impaired) Thought Process: Tangential, Other (disorganized at times) Thought Content: Other (makes nonsensical statements at times) Language Fluent and spontaneous Fund of Knowledge * Fair Hallucination Type: None Attention and Concentration: Good Suicidal Ideation: Yes (reported having stated he wanted to hurt herself to her but denies at this time) Previous Suicide Attempts: No Homicidal Ideation: No Previous Homicide Attempts: No Insight: Poor Judgment: Poor Affect: Other (restricted) Mood: Other ("good") Assessment & Plan Problem List: (1) Schizoaffective disorder ICD Codes: F25.9 - Schizoaffective disorder, unspecified Status: Acute Assessment & Plan Estimated LOS: 5-7 days. Patient is 67-year-old woman who carries a diagnoses of depression bipolar disorder as per patient, was brought to the [facility] for reported psychosis, anum and confusion. Patient doesnt interview noted to be disorganized tangential and confused making nonsensical statements. Patient is a poor historian due to her current clinical symptoms. Collateral perforation pending. Will start Risperidone 1 mg by mouth twice a day for psychosis. Monitor for medication response and adverse drug reactions. Discharge planning in progress. Discharge Planning At risk for further decompensation if at lower level of care Te Arzate MD Aug 16, 2017 16:10
[2017-08-16 17:12] VITALS: BP 157/70; PULSE 92; RESP 16; TEMP 99; O2SAT 96
[2017-08-16] MEDS: risperiDONE 1 MG TAB PO SCH (20:33)
[2017-08-16] MEDS: REMOVE OLD NICOTINE PATCH T-DERMAL SCH (21:00)
[2017-08-17 06:11] VITALS: BP 129/68; PULSE 97; RESP 17; TEMP 98; O2SAT 98
[2017-08-17] MEDS: INSULIN ASPART SUPPLEMENTAL SCALE SQ SCH ×4 (08:00→20:39)
[2017-08-17] MEDS: risperiDONE 1 MG TAB PO SCH (08:45)
[2017-08-17] MEDS: NICOTINE 21 MG/24 HR PATCH T-DERMAL SCH (08:47)
--- NOTE | 2017-08-17 10:15 | PD.PSY.CON ---
Provisional Diagnosis Admission Date Aug 15, 2017 at 18:33 [place] I. 1. Hypomania Rule-out Delirium Rule-out mood d/o due to [facility] Rule-out BPAD or SAD, bipolar type [place] II. Deferred History of Present Illness Service Psychiatry Consult Requested By Dr. Arzate Reason for Consult Second opinion for involuntary psychiatric hospitalization Primary Care Physician Jeferson Daniels MD HPI From Dr. Arzate's H&P: Patient is a 67-year-old woman, with 2 adult children, retired on social security benefits with a past psychiatric history of depression, bipolar disorder as per patient, 2 prior psychiatric hospitalizations, no previous suicide attempts or self-injurious behavior was brought into the hospital under [place] act as it was reported the patient was manic, confused, psychotic. Patient was transferred to the inpatient psychiatric unit for further management and evaluation. Patient was found lying in hospital bed but able to engage in interview today. Patient states that she had a colonoscopy to get the cancer out where she was diagnosed on 08/05/17. She states that she is here to find out why sees afraid, referring to the to have chemotherapy for recent cancer diagnoses or surgery. She states that her brought her to the hospital as he was afraid that she was trying to hurt herself. Patient was unable to elaborate on why has been was afraid she would hurt herself. Patient states that she has stated that she wanted to hurt herself. Patient reports her mood being pretty good for the past couple of weeks, but unsure if she had been feeling sad or depressed. Patient states that she sleep has been kind of edgy that his appetite energy or concentration denies suicidal ideations denies any decrease in hobbies or activities, denies any auditory or visual hallucinations denies any delusions at this time. Patient also mentions I think the baby apartment is behind me but was unable to elaborate patient also noted during interview to be stating that she had tomatoes brought in her IV and when asked why tomatoes she states it makes my blood red. Patient noted to be tangential confused at times since I disorganized during interview. Psychiatric family history: Denies Past psychiatric history: Self-reported diagnosis of bipolar disorder and depression, two previous psychiatric hospitalization, denies any previous suicide attempt or self-injurious behavior. She denies any history of physical or sexual abuse in the past. Substance use disorder: Alcohol use twice per year. Patient denies any previous illegal substance use. Past medical history: Diabetes mellitus Allergies: NKDA Social history: with 2 adult children, retired on social security benefits reports having moved to [place] in February.. On my exam today: Patient seen and examined with nurse. Chart reviewed. Case discussed with nursing staff. On my examination today, the patient presents as somewhat disinhibited, pulling up her gown to expose her brassiere. She seems a little confused and repeats herself several times during the interview. She explains that she recently underwent a "colonoscopy" by Dr. Hutchinson. Since then her mood has been, in her words "too happy." Sleep somewhat disrupted. Associations a little loose. Endorses VH of "men." No reported AH. Denies suicidal or homicidal ideation but it is unclear that she is reliable contract for safety. Remainder of the psychiatric ROS is negative. Past psychiatric history: The patient denies a history of psychiatric issues to me, although she apparently reported some history of depression to Dr. Arzate. She denies a history of psychiatric admissions or suicide attempts. Family history: The patient denies a family history of mental illness. Chemical dependency history: The patient denies any abuse of drugs or alcohol. Social history: The patient is originally from [facility]. She lives with her . She has 2 grown children. She is retired and used to work for the [employer]. She has a masters degree. Review of Systems ROS Limitations: Poor Historian Except as stated in HPI: all other systems reviewed are Neg Past Family Social History Coded Allergies: No Known Allergies (Unverified , 08/13/17) Past Medical History See EMR Reported Medications Pantoprazole (Pantoprazole) 40 Mg Tab, 40 MG PO HS for Reflux, #30 TAB 0 Refills 08/13/17 Ferrous Sulfate (Ferrous Sulfate) 325 Mg (65 Mg Iron) Tablet, 325 MG PO HS for Nutritional Supplement, #60 TAB 0 Refills 08/13/17 Hydralazine HCl (Hydralazine HCl) 25 Mg Tablet, 25 MG PO HS for Blood Pressure Management, #60 TAB 0 Refills 08/13/[address] (Fenofibric Acid Dr) 45 mg Capdr, 45 MG PO HS, #30 CAP 0 Refills 08/13/17 Metformin (Metformin) 1,000 Mg Tab, 1000 MG PO BIDPC for Blood Sugar Management , #60 TAB 0 Refills With meals 08/13/17 Current Medications Medications (Trade) Dose Ordered Sig/Cathy Route Start Time Stop Time Status Last Admin (Ativan) 0.5 mg Q12H PRN PO 08/15/17 20:30 (Ativan Inj) 0.5 mg Q12H PRN IM 08/15/17 20:30 (Tylenol) 650 mg Q4H PRN PO 08/15/17 20:30 (Milk Of Magnesia Liq) 30 ml DAILY PRN PO 08/15/17 20:30 (Mag-Al Plus Susp Liq) 30 ml Q6H PRN PO 08/15/17 20:30 (Habitrol 21 Mg Patch.24 Hr) 1 patch DAILY T-DERMAL 08/16/17 09:00 Miscellaneous Information 1 HS T-DERMAL 08/15/17 21:00 (D50w (Vial) Inj) 50 ml UNSCH PRN IV PUSH 08/16/17 07:30 (Glucagon Inj) 1 mg UNSCH PRN OTHER 08/16/17 07:30 (NovoLOG SUPPLEMENTAL SCALE) 1 ACHS SLIDING SCALE SQ 08/16/17 08:00 (risperDAL) 1 mg Q12HR PO 08/16/17 21:00 08/17/17 08:45 Family History See above Social History See above Patient's Strengths (min. 2) In a monitored setting. Verbally fluent. Physical Exam Physical exam completed by hospitalist outside solar sales consultant. On my examination today, the patient appears to be in no acute physical distress. No motor abnormalities noted. Labs and vitals reviewed: Vital Signs Vital Signs Date Time Temp Pulse Resp B/P (MAP) Pulse Ox O2 Delivery O2 Flow Rate FiO2 08/17/17 06:11 98.0 97 17 129/68 (88) 98 Lab Results Laboratory Tests Test 08/16/17 07:37 Blood Urea Nitrogen 18 MG/DL Creatinine 0.94 MG/DL Random Glucose 124 MG/DL Calcium Level 9.1 MG/DL Sodium Level 143 MEQ/L Potassium Level 4.1 MEQ/L Chloride Level 112 MEQ/L Carbon Dioxide Level 24.3 MEQ/L Anion Gap 7 MEQ/L Estimat Glomerular Filtration Rate 59 ML/MIN Hemoglobin A1c 5.5 % Triglycerides Level 223 MG/DL Cholesterol Level 142 MG/DL LDL Cholesterol 68 MG/DL HDL Cholesterol 29.2 MG/DL Cholesterol/HDL Ratio 4.86 RATIO Mental Status Examination Registration is 3 out of 3 in recall is 0 out of 3 at 5 minutes. She is oriented to person, place and date. She struggles with serial sevens but is able to spell WORLD backward. She is able to name 2 items and repeat a phrase. She is able to name the last several presidents [place] through [place]. Appearance Somewhat disheveled but maintaining basic hygiene Speech: Rapid Orientation: x3 Memory: Impaired (describe) (as above) Thought Process: Circumstantial, Loose Association (mild) Thought Content: Unremarkable, Other (makes nonsensical statements at times) Language unremarkable Fund of Knowledge Average Hallucination Type: Visual (as above) Attention and Concentration: Easily Distracted Suicidal Ideation: No Previous Suicide Attempts: No Homicidal Ideation: No Previous Homicide Attempts: No Insight: Poor Judgment: Poor Affect: Other (mildly expensive) Mood: Other ("too happy") Assessment & Plan Problem List: (1) Hypomania ICD Codes: F30.8 - Other manic episodes Assessment & Plan Given the circumstances of the patient's presentation here and her presentation on my examination today, I concur with Dr. Arzate that the patient meets criteria for involuntary psychiatric hospitalization under the Bentley act. I have completed the second opinion paperwork. Further care as per Dr. Arzate. Thank you very much for this consultation. Signing off. Clinton Cameron MD Aug 17, 2017 10:15
--- NOTE | 2017-08-17 14:07 | HHI.PR ---
Subjective Remarks Follow-up hypertension, diabetes mellitus and hyperlipidemia. Patient has no complaints. Discussed with RN to follow with patient's or the pharmacy regarding med list. She doesn't recall her medications Objective Vitals Vital Signs Date Time Temp Pulse Resp B/P (MAP) Pulse Ox O2 Delivery O2 Flow Rate FiO2 08/17/17 06:11 98.0 97 17 129/68 (88) 98 08/16/17 17:12 99.0 92 16 157/70 (99) 96 I/O 08/16/17 08/16/17 08/16/17 08/17/17 08/17/17 08/17/17 07:00 15:00 23:00 07:00 15:00 23:00 Intake Total 600 ml Balance 600 ml Intake Oral 600 ml Result Diagram: 08/16/17 0737 Objective Remarks This is a well-nourished, well-developed patient, in no apparent distress. Regular rate and rhythm without murmurs, gallops, or rubs. Clear to auscultation. Breath sounds equal bilaterally. No wheezes, rales, or rhonchi. Abdomen soft, non-tender, nondistended. Incision sites no signs of infection. No guarding. Extremities without clubbing, cyanosis, or edema. Awake and alert. Nonfocal A/P Assessment and Plan This is a 67-year-old female with a history of hypertension, hyperlipidemia, SAD and colon cancer. She presented to the emergency room because of altered mental status secondary to her mental condition. She was admitted to the medical floor because of recent colectomy for colon cancer. Her workup was unremarkable and was then transferred to the psychiatric floor. She was also evaluated by general surgery. Consultation has been requested by her attending to evaluate and manage multiple medical conditions including postoperative care. SAD exacerbation. UA, UDS head CT unremarkable. Further management per psychiatry Hypertension. Stable restart home medication hydralazine once confirmed. Discussed with RN to update med list Hyperlipidemia. LDL 68. This is well-controlled Colon cancer status post colectomy. Wound care per general surgery. Outpatient follow up Gen. surgery Diabetes mellitus. A1c 5.5. Monitor fingersticks with sliding scale coverage for now and discontinue if stable DVT prophylaxis, patient ambulatory Wagner Tejeda MD Aug 17, 2017 14:07
--- NOTE | 2017-08-17 16:05 | HHI.PYPN ---
Subjective Remarks Patient seen for follow-up, chart reviewed. Patient found lying on hospital bed , calm and cooperative with interview. Patient reports continuing to experiencing AH today and noted to continue to be disorganized at times. She states "my connie is blue, green blankets do something to my eyes". She is noted to have paranoid ideations "I feel someone is after me". She reports feeling "safe", denies SI, HI, AVH at time of interview. Review of Systems Except as stated in HPI: all other systems reviewed are Neg Objective Alert: Yes [place]: Person, Place Mood: Other ("safe") Affect: Restricted Memory Intact: Comment (not formally assessed) Hallucinations: Auditory (continues to endorse but denies at time of interview. ) Delusions: Yes Delusion Type: Paranoid Suicidal: Ideation (denies) Homicidal: Ideation (denies) Insight/Judgment poor insight, fair impulse control and judgment Vitals/IOs Vital Signs Date Time Temp Pulse Resp B/P (MAP) Pulse Ox O2 Delivery O2 Flow Rate FiO2 08/17/17 06:11 98.0 97 17 129/68 (88) 98 Assessment & Plan Problem List: (1) Schizoaffective disorder ICD Codes: F25.9 - Schizoaffective disorder, unspecified Status: Acute Assessment & Plan Patient continues to be psychotic with disorganized, with perceptual disturbances. Will increase Risperidone to 1mg PO daily and 2mg PO HS for psychosis. Encourage patient to maintain hygiene and participate in groups and activities while on the unit. Discharge planning in progress. Justification for Cont. Inpt. At risk for further decompensation if at lower level of care. Te Arzate MD Aug 17, 2017 16:05
[2017-08-17 18:00] VITALS: BP 134/71; PULSE 114; RESP 18; TEMP 99; O2SAT 97
[2017-08-17] MEDS: FERROUS SULFATE 325 MG (65 MG ELEMENTAL IRON) TAB PO SCH (20:29)
[2017-08-17] MEDS: hydrALAZINE HCL 25 MG TAB PO SCH (20:29)
[2017-08-17] MEDS: PANTOPRAZOLE SOD 40 MG DELAYED RELEASE TAB PO SCH (20:29)
[2017-08-17] MEDS: FENOFIBRATE 48 MG TAB PO SCH (20:29)
[2017-08-17] MEDS: REMOVE OLD NICOTINE PATCH T-DERMAL SCH (20:40)
[2017-08-17] MEDS ORDERED: risperiDONE 1 MG TAB PO SCH (21:00)
[2017-08-17 23:04] VITALS: BP 134/71; PULSE 100; RESP 18; TEMP 99; O2SAT 97
[2017-08-18] MEDS: INSULIN ASPART SUPPLEMENTAL SCALE SQ SCH (07:45)
[2017-08-18] MEDS: NICOTINE 21 MG/24 HR PATCH T-DERMAL SCH (07:56)
[2017-08-18] MEDS ORDERED: risperiDONE 1 MG TAB PO SCH (09:00)
[2017-08-18] MEDS ORDERED: risperiDONE 1 MG TAB PO ONE (15:15)
--- NOTE | 2017-08-18 16:16 | HHI.PYPN ---
Subjective Remarks Patient seen for follow-up, chart reviewed. Patient found lying on hospital bed and noted that the patient had urinated next to the bed. She states that she did not make it to the bathroom. Patient disorganized and making nonsensical statements relating to her recent colonoscopy. Patient reports continued auditory hallucinations. Patient advised to shower and change hospital gown which she agreed to. Review of Systems Except as stated in HPI: all other systems reviewed are Neg Objective Alert: Yes [place]: Person, Place Mood: Other ("fine") Affect: Restricted Memory Intact: Comment (impaired at this time) Hallucinations: Auditory (continues to endorse but denies at time of interview. ) Delusions: Yes Delusion Type: Paranoid Suicidal: Ideation (denies) Homicidal: Ideation (denies) Insight/Judgment poor insight, impulse control and judgment Remarks thought process: disorganized Vitals/IOs Vital Signs Date Time Temp Pulse Resp B/P (MAP) Pulse Ox O2 Delivery O2 Flow Rate FiO2 08/17/17 23:04 99.0 100 18 134/71 (92) 97 Assessment & Plan Problem List: (1) Schizoaffective disorder ICD Codes: F25.9 - Schizoaffective disorder, unspecified Status: Acute Assessment & Plan Patient continues to be noted to be psychotic and disorganized. Will increase risperidone 2mg PO BID for psychosis with upward titration as needed. Encourage patient to maintain personal hygiene and participate in groups and activities. Justification for Cont. Inpt. At risk for further decompensation if at lower level of care. Te Arzate MD Aug 18, 2017 16:16
--- NOTE | 2017-08-18 16:38 | HHI.PR ---
Subjective Remarks Follow-up hypertension and recent colectomy. Patient states she is doing okay denies chest pain, shortness of breath and abdominal pain. Discussed with RN Objective Vitals Vital Signs Date Time Temp Pulse Resp B/P (MAP) Pulse Ox O2 Delivery O2 Flow Rate FiO2 08/17/17 23:04 99.0 100 18 134/71 (92) 97 08/17/17 18:00 99.0 114 18 134/71 (92) 97 I/O 08/17/17 08/17/17 08/17/17 08/18/17 08/18/17 08/18/17 07:00 15:00 23:00 07:00 15:00 23:00 # Bowel Movements 1 Result Diagram: 08/16/17 0737 Objective Remarks This is a well-nourished, well-developed patient, in no apparent distress. Regular rate and rhythm without murmurs, gallops, or rubs. Clear to auscultation. Breath sounds equal bilaterally. No wheezes, rales, or rhonchi. Abdomen soft, non-tender, nondistended. Incision sites no signs of infection. No guarding. Extremities without clubbing, cyanosis, or edema. Awake and alert. Nonfocal A/P Assessment and Plan This is a 67-year-old female with a history of hypertension, hyperlipidemia, SAD and colon cancer. She presented to the emergency room because of altered mental status secondary to her mental condition. She was admitted to the medical floor because of recent colectomy for colon cancer. Her workup was unremarkable and was then transferred to the psychiatric floor. She was also evaluated by general surgery. Consultation has been requested by her attending to evaluate and manage multiple medical conditions including postoperative care. SAD exacerbation. UA, UDS head CT unremarkable. Further management per psychiatry Hypertension. Stable continue hydralazine Hyperlipidemia. LDL 68. This is well-controlled Colon cancer status post colectomy. Stable. Wound care. Outpatient follow up Gen. surgery Diabetes mellitus. A1c 5.5. Discontinue fingersticks DVT prophylaxis, patient ambulatory Wagner Tejeda MD Aug 18, 2017 16:38
[2017-08-18 18:02] VITALS: BP 142/76; PULSE 110; RESP 16; TEMP 97.4; O2SAT 98
[2017-08-18 20:17] VITALS: BP 142/76; PULSE 110; RESP 16; TEMP 97.4; O2SAT 98
[2017-08-18] MEDS: risperiDONE 1 MG TAB PO SCH (20:54)
[2017-08-18] MEDS: PANTOPRAZOLE SOD 40 MG DELAYED RELEASE TAB PO SCH (20:54)
[2017-08-18] MEDS: FERROUS SULFATE 325 MG (65 MG ELEMENTAL IRON) TAB PO SCH (20:54)
[2017-08-18] MEDS: REMOVE OLD NICOTINE PATCH T-DERMAL SCH (20:54)
[2017-08-18] MEDS: FENOFIBRATE 48 MG TAB PO SCH (20:54)
[2017-08-18] MEDS: hydrALAZINE HCL 25 MG TAB PO SCH (20:54)
[2017-08-19 06:20] VITALS: BP 145/74; PULSE 98; RESP 16; TEMP 97.9; O2SAT 97
[2017-08-19] MEDS: NICOTINE 21 MG/24 HR PATCH T-DERMAL SCH (08:25)
[2017-08-19] MEDS: risperiDONE 1 MG TAB PO SCH (08:25)
--- NOTE | 2017-08-19 14:05 | HHI.PR ---
Subjective Remarks Follow-up hypertension. BP readings stable however noted to be tachycardic. Denies palpitations, chest pain or shortness of breath. Discussed with RN Objective Vitals Vital Signs Date Time Temp Pulse Resp B/P (MAP) Pulse Ox O2 Delivery O2 Flow Rate FiO2 08/19/17 06:20 97.9 98 16 145/74 (97) 97 08/18/17 20:17 97.4 110 16 142/76 (98) 98 08/18/17 18:02 97.4 110 16 142/76 (98) 98 I/O 08/18/17 08/18/17 08/18/17 08/19/17 08/19/17 08/19/17 07:00 15:00 23:00 07:00 15:00 23:00 Intake Total 240 ml Balance 240 ml Intake Oral 240 ml # Voids 2 # Bowel Movements 1 Result Diagram: 08/16/17 0737 Objective Remarks This is a well-nourished, well-developed patient, in no apparent distress. Regular rhythm but tachycardic without murmurs, gallops, or rubs. Clear to auscultation. Breath sounds equal bilaterally. No wheezes, rales, or rhonchi. Abdomen soft, non-tender, nondistended. Incision sites no signs of infection. No guarding. Extremities without clubbing, cyanosis, or edema. Awake and alert. Nonfocal A/P Assessment and Plan This is a 67-year-old female with a history of hypertension, hyperlipidemia, SAD and colon cancer. She presented to the emergency room because of altered mental status secondary to her mental condition. She was admitted to the medical floor because of recent colectomy for colon cancer. Her workup was unremarkable and was then transferred to the psychiatric floor. She was also evaluated by general surgery. Consultation has been requested by her attending to evaluate and manage multiple medical conditions including postoperative care. SAD exacerbation. UA, UDS head CT unremarkable. Further management per psychiatry Hypertension. Stable continue hydralazine Sinus tachycardia. Asymptomatic. Will monitor. Consider repeating labs. Hyperlipidemia. LDL 68. This is well-controlled Colon cancer status post colectomy. Stable. Wound care. Outpatient follow up Gen. surgery Diabetes mellitus. A1c 5.5. Discontinue fingersticks DVT prophylaxis, patient ambulatory Wagner Tejeda MD Aug 19, 2017 14:05
[2017-08-19 16:59] VITALS: BP 134/60; PULSE 108; RESP 16; TEMP 97.6; O2SAT 100
[2017-08-19] MEDS: REMOVE OLD NICOTINE PATCH T-DERMAL SCH (21:00)
[2017-08-19] MEDS: hydrALAZINE HCL 25 MG TAB PO SCH (21:45)
[2017-08-19] MEDS: FENOFIBRATE 48 MG TAB PO SCH (21:45)
[2017-08-19] MEDS: PANTOPRAZOLE SOD 40 MG DELAYED RELEASE TAB PO SCH (21:45)
[2017-08-19] MEDS: FERROUS SULFATE 325 MG (65 MG ELEMENTAL IRON) TAB PO SCH (21:45)
[2017-08-19] MEDS: risperiDONE 3 MG TAB PO SCH (21:46)
--- NOTE | 2017-08-19 22:39 | HHI.PYPN ---
Subjective Remarks Patient seen for follow up; chart reviewed. Patient found lying on hospital bed but noted earlier to be eating along with others in day room. She states that she had another "accident" which she didn't make it to the bathroom. She states that it happens sometimes but denies this occuring at home. Patient is still noted to be disorganized, denies any AH. She states last speaking with her last week. Patient agrees to try to make it to the bathroom in time and participate in groups. Review of Systems Except as stated in HPI: all other systems reviewed are Neg Objective Alert: Yes [place]: Person, Place Mood: Other ("fine") Affect: Restricted Memory Intact: Comment (impaired at this time) Hallucinations: Auditory (continues to endorse but denies at time of interview. ) Delusions: Yes Delusion Type: Paranoid Suicidal: Ideation (denies) Homicidal: Ideation (denies) Insight/Judgment poor insight, fair impulse control and judgment Vitals/IOs Vital Signs Date Time Temp Pulse Resp B/P (MAP) Pulse Ox O2 Delivery O2 Flow Rate FiO2 08/19/17 16:59 97.6 108 16 134/60 (84) 100 Assessment & Plan Problem List: (1) Schizoaffective disorder ICD Codes: F25.9 - Schizoaffective disorder, unspecified Status: Acute Assessment & Plan Patient continues to be psychotic and disorganized. Will increase risperidone to 2mg am and 3mg HS. Continue to monitor medications response and ADRs. Discharge planning in progress. Justification for Cont. Inpt. At risk for further decompensation if at lower level of care. Te Arzate MD Aug 19, 2017 22:38
--- NOTE | 2017-08-19 22:43 | HHI.PYPN ---
Subjective Remarks Patient seen for follow up; chart reviewed. Patient states that she slept ok, mood having been "bad and happy", denies any AH (last being 2 days ago), deneis any suicidal ideations (last being yesterday). She reports feeling irritable at times and tries to attend groups but most are in [place]. Review of Systems Except as stated in HPI: all other systems reviewed are Neg Objective Alert: Yes [place]: Person, Place Mood: Other ("bad and happy") Affect: Restricted Memory Intact: Comment (impaired at this time) Hallucinations: Auditory (denies) Delusions: Yes Delusion Type: Paranoid Suicidal: Ideation (denies) Homicidal: Ideation (denies) Insight/Judgment improved insight, fair impulse control and judgment Vitals/IOs Vital Signs Date Time Temp Pulse Resp B/P (MAP) Pulse Ox O2 Delivery O2 Flow Rate FiO2 08/19/17 16:59 97.6 108 16 134/60 (84) 100 Assessment & Plan Problem List: (1) Schizoaffective disorder ICD Codes: F25.9 - Schizoaffective disorder, unspecified Status: Acute Assessment & Plan Patient noted to have improvement of mood and denied any SI today. Will continue current treatment. Discharge planning in progress. Justification for Cont. Inpt. At risk for further decompensation if at lower level of care. Te Arzate MD Aug 19, 2017 22:43
[2017-08-20 06:03] VITALS: BP 119/58; PULSE 105; RESP 18; TEMP 97.6; O2SAT 96
[2017-08-20] MEDS: NICOTINE 21 MG/24 HR PATCH T-DERMAL SCH (09:00)
[2017-08-20] MEDS: risperiDONE 1 MG TAB PO SCH (09:39)
--- NOTE | 2017-08-20 14:21 | HHI.PR ---
Subjective Remarks Follow-up tachycardia. Denies palpitations, dizziness, chest pain or shortness of breath. Objective Vitals Vital Signs Date Time Temp Pulse Resp B/P (MAP) Pulse Ox O2 Delivery O2 Flow Rate FiO2 08/20/17 06:03 97.6 105 18 119/58 (78) 96 08/19/17 16:59 97.6 108 16 134/60 (84) 100 I/O 08/19/17 08/19/17 08/19/17 08/20/17 08/20/17 08/20/17 07:00 15:00 23:00 07:00 15:00 23:00 Intake Total 360 ml Balance 360 ml Intake Oral 360 ml # Voids 2 # Bowel Movements 1 Result Diagram: 08/16/17 0737 Objective Remarks This is a well-nourished, well-developed patient, in no apparent distress. Regular rhythm but tachycardic without murmurs, gallops, or rubs. Clear to auscultation. Breath sounds equal bilaterally. No wheezes, rales, or rhonchi. Abdomen soft, non-tender, nondistended. Incision sites no signs of infection. No guarding. Extremities without clubbing, cyanosis, or edema. Awake and alert. Nonfocal A/P Assessment and Plan This is a 67-year-old female with a history of hypertension, hyperlipidemia, SAD and colon cancer. She presented to the emergency room because of altered mental status secondary to her mental condition. She was admitted to the medical floor because of recent colectomy for colon cancer. Her workup was unremarkable and was then transferred to the psychiatric floor. She was also evaluated by general surgery. Consultation has been requested by her attending to evaluate and manage multiple medical conditions including postoperative care. SAD exacerbation. UA, UDS head CT unremarkable. Further management per psychiatry Hypertension. Stable continue hydralazine Sinus tachycardia. Asymptomatic. Will monitor. Repeat CBC and BMP Hyperlipidemia. LDL 68. This is well-controlled Colon cancer status post colectomy. Stable. Wound care. Outpatient follow up Gen. surgery Diabetes mellitus. A1c 5.5. Discontinue fingersticks DVT prophylaxis, patient ambulatory Wagner Tejeda MD Aug 20, 2017 14:21
--- NOTE | 2017-08-20 16:35 | HHI.PYPN ---
Subjective Remarks Patient was seen and case discussed with nursing. Patient is alert and oriented 1. Dalton thinking, cannot tell me how an apple and an orange are the same. There is concern for possible neurocognitive disorder. Behaving well on the unit. Denies auditory visual hallucinations. Objective Alert: Yes [place]: Person, Place Mood: Calm Affect: Restricted Memory Intact: Comment (impaired at this time) Hallucinations: Auditory (denies) Delusions: Yes Delusion Type: Paranoid Suicidal: Ideation (denies) Homicidal: Ideation (denies) Insight/Judgment Poor Vitals/IOs Vital Signs Date Time Temp Pulse Resp B/P (MAP) Pulse Ox O2 Delivery O2 Flow Rate FiO2 08/20/17 06:03 97.6 105 18 119/58 (78) 96 Assessment & Plan Problem List: (1) Schizoaffective disorder ICD Codes: F25.9 - Schizoaffective disorder, unspecified Status: Acute Assessment & Plan Consider testing and evaluation for dementia Justification for Cont. Inpt. Patient would decompensate in a less restrictive setting Jeff Reed DO Aug 20, 2017 16:35
[2017-08-20] MEDS: REMOVE OLD NICOTINE PATCH T-DERMAL SCH (21:00)
[2017-08-20] MEDS: FERROUS SULFATE 325 MG (65 MG ELEMENTAL IRON) TAB PO SCH (21:53)
[2017-08-20] MEDS: FENOFIBRATE 48 MG TAB PO SCH (21:53)
[2017-08-20] MEDS: risperiDONE 3 MG TAB PO SCH (21:53)
[2017-08-20] MEDS: hydrALAZINE HCL 25 MG TAB PO SCH (21:53)
[2017-08-20] MEDS: PANTOPRAZOLE SOD 40 MG DELAYED RELEASE TAB PO SCH (21:54)
[2017-08-21 05:48] VITALS: BP 134/75; PULSE 92; RESP 18; TEMP 97.8; O2SAT 98
[2017-08-21] MEDS: risperiDONE 1 MG TAB PO SCH (08:53)
[2017-08-21] MEDS: NICOTINE 21 MG/24 HR PATCH T-DERMAL SCH (08:59)
--- NOTE | 2017-08-21 10:31 | HHI.PYPN ---
Subjective Remarks Patient was seen and case discussed with nursing. Patient is alert and oriented 2. She is confused and forgetful throughout the day. Largely seclusive to self. Behaving well on the unit. Tolerating her medications well. Denies auditory visual hallucinations Objective Alert: Yes [place]: Person, Place Mood: Calm Affect: Blunted Memory Intact: Comment (impaired at this time) Hallucinations: Auditory (denies) Delusions: Yes Delusion Type: Paranoid Suicidal: Ideation (denies) Homicidal: Ideation (denies) Insight/Judgment Poor Vitals/IOs Vital Signs Date Time Temp Pulse Resp B/P (MAP) Pulse Ox O2 Delivery O2 Flow Rate FiO2 08/21/17 05:48 97.8 92 18 134/75 (94) 98 Assessment & Plan Problem List: (1) Schizoaffective disorder ICD Codes: F25.9 - Schizoaffective disorder, unspecified Status: Acute Assessment & Plan Continue current treatment plan Justification for Cont. Inpt. Patient will decompensate in a less restrictive setting Jeff Reed DO Aug 21, 2017 10:31
[2017-08-21 11:22] LABS: AUTOMATED NEUTROPHIL # 5.7 TH/MM3 (1.8-7.7); BASOPHIL # 0.1 TH/MM3 (0-0.2); BASOPHIL % 0.9 % (0.0-2.0); EOSINOPHIL # 0.1 TH/MM3 (0-0.4); EOSINOPHIL % 1.5 % (0.0-4.0); HEMATOCRIT 33.7 % (35.0-46.0); LYMPH % 10.7 % (9.0-44.0); LYMPHOCYTE # 0.8 TH/MM3 (1.0-4.8); MEAN CELL VOLUME 76.3 FL (80.0-100.0); MEAN CORPUSCULAR HEMOGLOBIN 23.3 PG (27.0-34.0); MEAN CORPUSCULAR HGB CONC 30.5 % (32.0-36.0); MONO % 10.1 % (0.0-8.0); NEUT % 76.8 % (16.0-70.0); PLATELET COUNT 325 TH/MM3 (150-450); RED BLOOD COUNT 4.42 MIL/MM3 (4.00-5.30); RED CELL DISTRIBUTION WIDTH 26.9 % (11.6-17.2); WHITE BLOOD COUNT 7.4 TH/MM3 (4.0-11.0)
[2017-08-21 11:27] LABS: HEMO FLAGS AUTO DIFF
[2017-08-21 11:40] LABS: BICARBONATE 23.7 MEQ/L (21.0-32.0); MAGNESIUM 2.3 MG/DL (1.5-2.5); POTASSIUM 3.9 MEQ/L (3.5-5.1)
[2017-08-21 12:12] LABS: SCAN/DIFF AUTO DIFF CONFIRMED
--- NOTE | 2017-08-21 13:42 | HHI.PR ---
Subjective Remarks Follow-up tachycardia. Today her heart rate is within normal limits. She has no complaints. Discussed with RN, labs unremarkable Objective Vitals Vital Signs Date Time Temp Pulse Resp B/P (MAP) Pulse Ox O2 Delivery O2 Flow Rate FiO2 08/21/17 05:48 97.8 92 18 134/75 (94) 98 Result Diagram: 08/21/17 1042 08/21/17 1042 Objective Remarks This is a well-nourished, well-developed patient, in no apparent distress. Regular rate and rhythm without murmurs, gallops, or rubs. Clear to auscultation. Breath sounds equal bilaterally. No wheezes, rales, or rhonchi. Abdomen soft, non-tender, nondistended. Incision sites no signs of infection. No guarding. Extremities without clubbing, cyanosis, or edema. Awake and alert. Nonfocal A/P Assessment and Plan This is a 67-year-old female with a history of hypertension, hyperlipidemia, SAD and colon cancer. She presented to the emergency room because of altered mental status secondary to her mental condition. She was admitted to the medical floor because of recent colectomy for colon cancer. Her workup was unremarkable and was then transferred to the psychiatric floor. She was also evaluated by general surgery. Consultation has been requested by her attending to evaluate and manage multiple medical conditions including postoperative care. SAD exacerbation. UA, UDS head CT unremarkable. Further management per psychiatry Hypertension. Stable continue hydralazine Sinus tachycardia. Asymptomatic. Improved. Repeat CBC and BMP unremarkable. Monitor Hyperlipidemia. LDL 68. This is well-controlled Colon cancer status post colectomy. Stable. Wound care. Outpatient follow up Gen. surgery Diabetes mellitus. A1c 5.5. Discontinue fingersticks DVT prophylaxis, patient ambulatory Discharge Planning Clinically stable, will sign off Wagner Tejeda MD Aug 21, 2017 13:41
[2017-08-21 17:53] VITALS: BP 146/78; PULSE 131; RESP 20; TEMP 98.7; O2SAT 92
[2017-08-21] MEDS: REMOVE OLD NICOTINE PATCH T-DERMAL SCH (21:00)
[2017-08-21] MEDS: FERROUS SULFATE 325 MG (65 MG ELEMENTAL IRON) TAB PO SCH (21:07)
[2017-08-21] MEDS: PANTOPRAZOLE SOD 40 MG DELAYED RELEASE TAB PO SCH (21:07)
[2017-08-21] MEDS: FENOFIBRATE 48 MG TAB PO SCH (21:08)
[2017-08-21] MEDS: hydrALAZINE HCL 25 MG TAB PO SCH (21:08)
[2017-08-21] MEDS: risperiDONE 3 MG TAB PO SCH (21:08)
[2017-08-22 03:19] VITALS: O2SAT 92
[2017-08-22 03:45] VITALS: BP 131/71; PULSE 121; RESP 22; TEMP 98.8; O2SAT 93
--- NOTE | 2017-08-22 04:12 | HHI.FPPN ---
Subjective Remarks [facility]IC[facility] NOTE Residents responded to overhead page for [facility] in [address] at approximately 0315. [facility] nurse and respiratory staff arrived simultaneously. Patient states she felt "bad" prior to [facility] arrival but denies chest pain, shortness of breath, other symptoms. Nursing staff report [facility] was called for diaphoresis, hypoxia to 82% and change in mental status though no other details offered. No coughing or other symptoms reported. History reportedly significant for previous colon resection within the last two weeks and HTN. No history of atrial fibrillation reported but VS reported on arrival notable for oxygen saturation 90% on 4L NC, BP 137/89, pulse 118. Chest auscultation is clear, cardiac exam showing RRR, no murmurs. Skin is warm and diaphoresis is noted. Verbal orders to Yoly (RN for Hal[facility] team) for CBC, CMP, ABG, lactate, EKG, and CXR ordered to initiate work-up as differential is broad at this time. Dr. Arzate (psychiatry) ordered stat re-consultation of medical service ([facility]) who signed off yesterday. He is reportedly initiating direct consultation by phone at time of Halicat. No other orders needed at this time. Patient to be transferred to med-psych floor for medical evaluation. SDW Dr. Genet Vincent Objective Vitals Vital Signs Date Time Temp Pulse Resp B/P (MAP) Pulse Ox O2 Delivery O2 Flow Rate FiO2 08/22/17 03:19 92 Nasal Cannula 6.00 08/22/17 03:19 92 6.00 08/21/17 17:53 98.7 131 20 146/78 (100) 92 08/21/17 05:48 97.8 92 18 134/75 (94) 98 Result Diagram: 08/21/17 1042 08/21/17 1042 Yanelis Andrea MD R2 Aug 22, 2017 04:12
[2017-08-22 04:23] LABS: BLOOD GAS HCO3 19 mmol/L (22-26); BLOOD GAS METHEMOGLOBIN 1.3 % (0-2); BLOOD GAS O2 HGB SATURATION 90 % (90-100); BLOOD GAS OXYGEN CONTENT 12.7 Vol % (12.0-20.0); BLOOD GAS PCO2 27 mmHg (38-42); BLOOD GAS PO2 69 mmHg (61-120); CRITICAL VALUE NO; DRAW SITE RT RADIAL; NUMBER OF ARTERIAL PUNCTURES 1; OXYGEN DEVICE NASAL CANNULA; STAT NO; TEMP CORR TO 98.6; ULNAR PULSE PRESENT
[2017-08-22 04:27] LABS: AUTOMATED NEUTROPHIL # 8.9 TH/MM3 (1.8-7.7); BASOPHIL # 0.1 TH/MM3 (0-0.2); BASOPHIL % 0.5 % (0.0-2.0); EOSINOPHIL % 0.4 % (0.0-4.0); HEMATOCRIT 32.2 % (35.0-46.0); LYMPH % 6.3 % (9.0-44.0); LYMPHOCYTE # 0.7 TH/MM3 (1.0-4.8); MEAN CELL VOLUME 76.3 FL (80.0-100.0); MEAN CORPUSCULAR HEMOGLOBIN 23.9 PG (27.0-34.0); MEAN CORPUSCULAR HGB CONC 31.4 % (32.0-36.0); MONO % 8.7 % (0.0-8.0); NEUT % 84.1 % (16.0-70.0); PLATELET COUNT 312 TH/MM3 (150-450); RED BLOOD COUNT 4.22 MIL/MM3 (4.00-5.30); RED CELL DISTRIBUTION WIDTH 26.9 % (11.6-17.2); WHITE BLOOD COUNT 10.6 TH/MM3 (4.0-11.0)
[2017-08-22 04:29] LABS: HEMO FLAGS AUTO DIFF
--- NOTE | 2017-08-22 04:35 | RADRPT ---
EXAM DATE/TIME: 08/22/2017 03:52 [facility] COMPARISON: CHEST SINGLE AP, August 13, 2017, 2:46. INDICATIONS : [facility]- Shortness of breath MEDICAL HISTORY : Diabetes mellitus type II. Hypertension AMS SURGICAL HISTORY : None. ENCOUNTER: Subsequent ACUITY: 1 week PAIN SCORE: 7/10 LOCATION: Bilateral chest FINDINGS: Trace atelectasis in left lung base. Lungs otherwise clear. No pleural effusion. No pneumothorax. Heart size stable, within normal limits. CONCLUSION: Trace left base atelectasis. Ric Kemp MD on August 22, 2017 at 4:33 Board Certified Radiologist. This report was verified electronically.
[2017-08-22 04:48] LABS: ALT (GPT) 172 U/L (10-53); ANION GAP 11 MEQ/L (5-15); AST (GOT) 55 U/L (15-37); BICARBONATE 21.1 MEQ/L (21.0-32.0); BLOOD UREA NITROGEN 24 MG/DL (7-18); CHLORIDE 110 MEQ/L (98-107); GLOMERULAR FILTRATION RATE 58 ML/MIN (>89); POTASSIUM 3.8 MEQ/L (3.5-5.1); SODIUM (NA) 142 MEQ/L (136-145)
[2017-08-22 04:50] LABS: ALKALINE PHOSPHATASE 122 U/L (45-117); TOTAL BILIRUBIN ADULT 0.7 MG/DL (0.2-1.0)
[2017-08-22 04:52] VITALS: O2SAT 95
[2017-08-22 04:55] LABS: LITER FLOW 4 L/M
[2017-08-22] MEDS ORDERED: SODIUM CHLOR 0.9% 1000 ML INJ 1,000 ML IV ONE (05:00)
[2017-08-22 05:14] LABS: BANDS 9 % (0-6); BASOPHILS 1 % (0-2); NEUTROPHIL # MANUAL DIFF 9.3 TH/MM3 (1.8-7.7); PLATELET ESTIMATE SMEAR NORMAL (NORMAL); PLATELET MORPHOLOGY NORMAL (NORMAL); POLYS (SEG NEUTROPHILS) 79 % (16-70); SCAN/DIFF FINAL DIFF MANUAL; WBC DIFF SAMPLE 100
[2017-08-22 06:08] LABS: LACTIC ACID GHOST NOT REPORTABLE
[2017-08-22] MEDS ORDERED: ENOXAPARIN SODIUM 80 MG/0.8 ML SYRINGE SQ ONE (06:15)
[2017-08-22] MEDS ORDERED: DIATRIZOATE MEGLUM/DIATRIZOATE SOD 9 ML CUP PO SCH (06:30)
--- NOTE | 2017-08-22 06:33 | HHI.PR ---
Subjective Remarks 67-year-old female with history of hypertension, diabetes and hyperlipidemia, status post colectomy a little over a week ago was called a halicat in the psych department for low oxygen saturation. Patient was transferred to inpatient medical psych and H&H was consulted stat for reevaluation. Patient seen and examined at bedside in medical psych she is oriented 2-3, currently on 50 % venti mask, satting 93%. Patient states she was laying in bed and felt short of breath and nauseated. She states now she feels better with the mask on and does not feel short of breath. She denies any chest pain, fever or chills. She does complain of abdominal tenderness to lower abdomen. Objective Vitals Vital Signs Date Time Temp Pulse Resp B/P (MAP) Pulse Ox O2 Delivery O2 Flow Rate FiO2 08/22/17 04:52 95 Venturi Mask 50 08/22/17 03:45 98.8 121 22 131/71 (91) 93 08/22/17 03:19 92 Nasal Cannula 6.00 08/22/17 03:19 92 6.00 08/21/17 17:53 98.7 131 20 146/78 (100) 92 Result Diagram: 08/22/1740208/22/17402 Objective Remarks GENERAL: Well-nourished patient laying in bed currently on a venti mask. SKIN: Warm and dry. HEAD: Atraumatic. Normocephalic. EYES: Pupils equal and round. No scleral icterus. No injection or drainage. ENT: No nasal bleeding or discharge. Mucous membranes pink and moist. NECK: Trachea midline. No JVD. CARDIOVASCULAR: Tachycardic rate and rhythm. RESPIRATORY: Bilateral diminished breath sounds. 50 % venti in place. GASTROINTESTINAL: Abdomen soft, lower abdominal tenderness, nondistended MUSCULOSKELETAL: Extremities without clubbing, cyanosis, or edema. No obvious deformities. NEUROLOGICAL: Awake and alert. Motor grossly within normal limits. Five out of 5 muscle strength in the arms and legs. Normal speech. PSYCHIATRIC: Appropriate mood and affect; insight and judgment normal. Medications and IVs Current Medications Medications (Trade) Dose Ordered Sig/Cathy Route Start Time Stop Time Status Last Admin (Ativan) 0.5 mg Q12H PRN PO 08/15/17 20:30 (Ativan Inj) 0.5 mg Q12H PRN IM 08/15/17 20:30 (Tylenol) 650 mg Q4H PRN PO 08/15/17 20:30 (Milk Of Magnesia Liq) 30 ml DAILY PRN PO 08/15/17 20:30 (Mag-Al Plus Susp Liq) 30 ml Q6H PRN PO 08/15/17 20:30 (Habitrol 21 Mg Patch.24 Hr) 1 patch DAILY T-DERMAL 08/16/17 09:00 Miscellaneous Information 1 HS T-DERMAL 08/15/17 21:00 (D50w (Vial) Inj) 50 ml UNSCH PRN IV PUSH 08/16/17 07:30 (Glucagon Inj) 1 mg UNSCH PRN OTHER 08/16/17 07:30 (Ferrous Sulfate) 325 mg HS PO 08/17/17 21:00 08/21/17 21:07 (Apresoline) 25 mg HS PO 08/17/17 21:00 08/21/17 21:08 (Protonix) 40 mg HS PO 08/17/17 21:00 08/21/17 21:07 (Tricor) 48 mg HS PO 08/17/17 21:00 08/21/17 21:08 (risperDAL) 2 mg DAILY PO 08/20/17 09:00 08/21/17 08:53 (risperDAL) 3 mg HS PO 08/19/17 21:00 08/21/17 21:08 Urinary Catheter: No Vascular Central Line Catheter: No A/P Assessment and Plan This is a 67-year-old female with a history of hypertension, hyperlipidemia, SAD and colon cancer s/p colectomy. She presented originally to the emergency room for altered mental status. She was treated on the medical floor and then transferred to psych unit. [facility] was called for respiratory distress and [facility] was consulted for management. SAD exacerbation. -Further management per psychiatry Sinus tachycardia, HR 120-130s -D dimer ordered, 9.8, CT pulmonary angiogram ordered r/o PE -NS bolus given -Lovenox full strength given x 1 SIRS, elevated HR, lactic 2.1, unknown source, abdomen is tender to palpation, s /p colectomy -CT abdomen ordered given history of colectomy -Zosyn IV started empirically -UA ordered Hypertension, controlled -Cont hydralazine DVT prophylaxis: Marlen Reddy Aug 22, 2017 06:33
[2017-08-22 08:24] VITALS: O2SAT 96
[2017-08-22] MEDS: risperiDONE 1 MG TAB PO SCH (09:00)
[2017-08-22] MEDS: NICOTINE 21 MG/24 HR PATCH T-DERMAL SCH (09:00)
--- NOTE | 2017-08-22 10:05 | HHI.PYPN ---
Subjective Remarks Patient seen for follow-up, chart reviewed. Patient found lying in hospital bed with O2 mask on, alert, calm and cooperative interview. Patient states that she is feeling "okay", is unclear why she was moved to the medical floor at this stage feeling sweaty and clammy last evening. Patient reports that she is no longer having any more "accidents" referring to urinating on herself, denies any auditory or visual hallucinations. Patient noted to be slightly more organized today and states that she had spoken with her last evening over the phone and feels that she is doing much better. Patient is alert and oriented to person place and date. Review of Systems Except as stated in HPI: all other systems reviewed are Neg Objective Alert: Yes [place]: Person, Place Mood: Calm Affect: Blunted Memory Intact: Comment (impaired at this time) Hallucinations: Auditory (denies) Delusions: Yes Delusion Type: Paranoid (feels that people are after her but was unable to specify who or why) Suicidal: Ideation (denies) Homicidal: Ideation (denies) Insight/Judgment Limited insight, fair impulse control and judgment Labs Test 08/21/17 10:42 08/22/17 04:03 08/22/17 04:15 08/22/17 05:20 White Blood Count 7.4 TH/MM3 10.6 TH/MM3 Red Blood Count 4.42 MIL/MM3 4.22 MIL/MM3 Hemoglobin 10.3 GM/DL 10.1 GM/DL Hematocrit 33.7 % 32.2 % Mean Corpuscular Volume 76.3 FL 76.3 FL Mean Corpuscular Hemoglobin 23.3 PG 23.9 PG Mean Corpuscular Hemoglobin Concent 30.5 % 31.4 % Red Cell Distribution Width 26.9 % 26.9 % Platelet Count 325 TH/MM3 312 TH/MM3 Mean Platelet Volume 8.7 FL 9.0 FL Neutrophils (%) (Auto) 76.8 % 84.1 % Lymphocytes (%) (Auto) 10.7 % 6.3 % Monocytes (%) (Auto) 10.1 % 8.7 % Eosinophils (%) (Auto) 1.5 % 0.4 % Basophils (%) (Auto) 0.9 % 0.5 % Neutrophils # (Auto) 5.7 TH/MM3 8.9 TH/MM3 Lymphocytes # (Auto) 0.8 TH/MM3 0.7 TH/MM3 Monocytes # (Auto) 0.7 TH/MM3 0.9 TH/MM3 Eosinophils # (Auto) 0.1 TH/MM3 0.0 TH/MM3 Basophils # (Auto) 0.1 TH/MM3 0.1 TH/MM3 CBC Comment AUTO DIFF AUTO DIFF Differential Comment AUTO DIFF CONFIRMED FINAL DIFF MANUAL Blood Urea Nitrogen 18 MG/DL 24 MG/DL Creatinine 0.93 MG/DL 0.95 MG/DL Random Glucose 146 MG/DL 224 MG/DL Calcium Level 9.7 MG/DL 8.9 MG/DL Magnesium Level 2.3 MG/DL Sodium Level 141 MEQ/L 142 MEQ/L Potassium Level 3.9 MEQ/L 3.8 MEQ/L Chloride Level 107 MEQ/L 110 MEQ/L Carbon Dioxide Level 23.7 MEQ/L 21.1 MEQ/L Anion Gap 10 MEQ/L 11 MEQ/L Estimat Glomerular Filtration Rate 60 ML/MIN 58 ML/MIN Differential Total Cells Counted 100 Neutrophils % (Manual) 79 % Band Neutrophils % 9 % Lymphocytes % 2 % Monocytes % 9 % Basophils % 1 % Neutrophils # (Manual) 9.3 TH/MM3 Platelet Estimate NORMAL Platelet Morphology Comment NORMAL Total Protein 6.7 GM/DL Albumin 3.3 GM/DL Alkaline Phosphatase 122 U/L Aspartate Amino Transf (AST/SGOT) 55 U/L Alanine Aminotransferase (ALT/SGPT) 172 U/L Total Bilirubin 0.7 MG/DL Lactic Acid Level 2.1 mmol/L Blood Gas Puncture Site RT RADIAL Blood Gas Patient Temperature 98.6 Blood Gas HCO3 19 mmol/L Blood Gas Base Excess -4.0 mmol/L Blood Gas Oxygen Saturation 90 % Arterial Blood pH 7.47 Arterial Blood Partial Pressure CO2 27 mmHg Arterial Blood Partial Pressure O2 69 mmHg Arterial Blood Oxygen Content 12.7 Vol % Arterial Blood Carboxyhemoglobin 2.0 % Arterial Blood Methemoglobin 1.3 % Blood Gas Hemoglobin 10.0 G/DL Oxygen Delivery Device NASAL CANNULA Blood Gas Liter Flow 4 L/M D-Dimer Quantitative (PE/DVT) 9.80 MG/L FEU Vitals/IOs Vital Signs Date Time Temp Pulse Resp B/P (MAP) Pulse Ox O2 Delivery O2 Flow Rate FiO2 08/22/17 08:24 96 Venturi Mask 40 08/22/17 03:45 98.8 121 22 131/71 (91) 08/22/17 03:19 6.00 Assessment & Plan Problem List: (1) Schizoaffective disorder ICD Codes: F25.9 - Schizoaffective disorder, unspecified Status: Acute Assessment & Plan Patient at this time continues to be slightly disorganized, recent cessation of auditory hallucinations and continues to have some paranoia. Patient recently transferred to the medical psychiatry unit due to unstable vitals last evening. Medical team will continue the following, recommendations as per primary medical team. Will continue current treatment for now until patient is more stable. Collateral information pending from . Discharge planning in progress Justification for Cont. Inpt. At risk for further decompensation if at lower level of care Te Arzate MD Aug 22, 2017 10:05
[2017-08-22] MEDS ORDERED: IOHEXOL 350 MG/ML 10 ML VIAL (for RAD DIAG) IVCONTRAST ONE (12:54)
[2017-08-22 13:05] LABS: AMYLASE 26 U/L (25-115)
--- NOTE | 2017-08-22 13:08 | RADRPT ---
EXAM DATE/TIME: 08/22/2017 12:28 [facility] COMPARISON: CT ABDOMEN & PELVIS W/O CONTRAST, August 13, 2017, 2:59. INDICATIONS : Status post colectomy 6 weeks ago, abdomen pain ORAL CONTRAST: Prescribed oral contrast ingested. RADIATION DOSE: 9.96 CTDIvol (mGy) MEDICAL HISTORY : Hypertension. Carcinoma, colon. Diabetes. SURGICAL HISTORY : Colon resection. ENCOUNTER: Initial ACUITY: 1 day PAIN SCALE: 0/10 LOCATION: lower quadrant TECHNIQUE: Volumetric scanning of the abdomen and pelvis was performed. Using automated exposure control and adjustment of the mA and/or kV according to patient size, radiation dose was kept as low as reasonably achievable to obtain optimal diagnostic quality images. DICOM format image data is av ailable electronically for review and comparison. FINDINGS: LOWER LUNGS: The visualized lower lungs are clear. LIVER: Mild diffuse decreased hepatic density with redemonstration of increased density adjacent to the falciform ligament which may reflect focal sparing. Gallbladder is unremarkable by CT. SPLEEN: Normal size without lesion. PANCREAS: 2.5 x 1.7 cm cyst near the tail of the pancreas similar to prior exam. KIDNEYS: Symmetrical in size without evidence for hydronephrosis. Faint calyceal calcifications b ilaterally. ADRENAL GLANDS: Within normal limits. VASCULAR: There is no aortic aneurysm. BOWEL/MESENTERY: Surgical anastomosis in the right colon. Bowel appears unremarkable without evid ence for obstruction. No drainable fluid collections or free fluid. No pneumatosis or free air. ABDOMINAL WALL: Slightly more confluent opacity in the right lower quadrant subcutaneous abdomina l wall now measuring 5.1 x 2.0 cm in comparison to 5.2 x 1.4 centers on prior exam. RETROPERITONEUM: There is no lymphadenopathy. BLADDER: Bladder is moderately distended but otherwise unremarkable. REPRODUCTIVE: Redemonstration of calcified uterine leiomyoma. INGUINAL: There is no lymphadenopathy or hernia. MUSCULOSKELETAL: Within normal limits for patient age. CONCLUSION: 1. Organizing subcutaneous right lower quadrant anterior abdominal wall induration likely postsurgica l. This does not yet have the appearance of a focal drainable fluid collection. 2. Postsurgical features of right hemicolectomy without evidence for intra-abdominal abscess as quest ioned. Filiberto Pleitez MD on August 22, 2017 at 12:56 Board Certified Radiologist. This report was verified electronically.
--- NOTE | 2017-08-22 13:14 | RADRPT ---
EXAM DATE/TIME: 08/22/2017 12:38 [facility] COMPARISON: No previous studies available for comparison. INDICATIONS : Elevated D-Dimer, hypoxia IV CONTRAST: 70 cc Omnipaque 350 (iohexol) IV RADIATION DOSE: 9.08 CTDIvol (mGy) MEDICAL HISTORY : Hypertension. Diabetes mellitus type 2. Carcinoma, colon. SURGICAL HISTORY : None. Colon resection. ENCOUNTER: Initial ACUITY: 1 day PAIN SCALE: 0/10 LOCATION: chest TECHNIQUE: Volumetric scanning of the chest was performed using a pulmonary embolism protocol MIP images were re constructed. Using automated exposure control and adjustment of the mA and/or kV according to patien t size, radiation dose was kept as low as reasonably achievable to obtain optimal diagnostic quality images. DICOM format image data is available electronically for review and comparison. Follow-up recommendations for detected pulmonary nodules are based at a minimum on nodule size and pa tient risk factors according to Fleischner Society Guidelines. FINDINGS: PULMONARY ARTERIES: Examination is abnormal. Intraluminal filling defects are seen in proximal upper and lower lobe segme ntal branches of the left and right pulmonary arteries. There is overall moderate thrombus burden. Ma in pulmonary artery is slightly prominent measuring up to 3.1 cm. LUNGS: Minimal ground glass opacities at the extreme lung bases and left liver lobe likely reflecting volume loss. PLEURAE: There is no pleural thickening or pleural effusion. MEDIASTINUM: Heart appears unremarkable without evidence for pericardial effusion. No evidence for significant hea rt strain by CT. MUSCULOSKELETAL: Healed left-sided rib fractures. MISCELLANEOUS: The visualized upper abdominal organs demonstrate no acute abnormality. CONCLUSION: 1. Abnormal examination with upper and lower lobe proximal segmental pulmonary emboli bilaterally. Th ere is overall moderate thrombus burden with mild prominence of the main pulmonary artery which may r eflect some degree of pulmonary hypertension. No significant right heart strain by CT at this time. Filiberto Pleitez MD on August 22, 2017 at 13:06 Board Certified Radiologist. This report was verified electronically.
--- NOTE | 2017-08-22 14:08 | HHI.PR ---
Subjective Remarks Follow-up visit respiratory distress, pulmonary embolism. Patient seen and examined today sitting in a chair. Reports constipation. Reports she is feeling better now. States she is not short of breath as earlier. Tolerating 3 L nasal cannula, O2 sat 94-96%. Reports left lower extremity numbness and tingling. Otherwise, denies nausea vomiting diarrhea. Denies headaches, chest pain, palpitations, fevers, chills. Objective Vitals Vital Signs Date Time Temp Pulse Resp B/P (MAP) Pulse Ox O2 Delivery O2 Flow Rate FiO2 08/22/17 08:24 96 Venturi Mask 40 08/22/17 04:52 95 Venturi Mask 50 08/22/17 03:45 98.8 121 22 131/71 (91) 93 08/22/17 03:19 92 Nasal Cannula 6.00 08/22/17 03:19 92 6.00 08/21/17 17:53 98.7 131 20 146/78 (100) 92 Result Diagram: 08/22/17 0403 08/22/17 0403 Imaging Last Impressions Chest X-Ray 08/22/17 0000 Signed Impressions: Service Date/Time: Tuesday, August 22, 2017 03:52 - CONCLUSION: Trace left base atelectasis. Ric Kemp MD Objective Remarks GENERAL: This is a well-nourished, well-developed patient, in no apparent distress. SKIN: Warm and dry. HEENT: Normocephalic. Pupils equal round and reactive. Nose without bleeding. Airway patent. NECK: Trachea midline. No JVD. Supple. CARDIOVASCULAR: Regular rate and rhythm without murmurs, gallops, or rubs. RESPIRATORY: Diminished Left Lobe. No wheezes, rales, or rhonchi. GASTROINTESTINAL: Abdomen soft, non-tender, nondistended. Bowel Sounds hypoactive. MUSCULOSKELETAL: Extremities without clubbing, cyanosis, or edema. NEUROLOGICAL: Awake and alert. Oriented to place, person. No focal neuro deficit. Moves all extremities. Normal speech. A/P Problem List: (1) S/P colectomy ICD Code: Z90.49 - Acquired absence of other specified parts of digestive tract Status: Chronic (2) Schizoaffective disorder ICD Code: F25.9 - Schizoaffective disorder, unspecified Status: Acute (3) HTN (hypertension) ICD Code: I10 - Essential (primary) hypertension Status: Chronic (4) Diabetes mellitus ICD Code: E11.9 - Type 2 diabetes mellitus without complications (5) Pulmonary embolism during current hospitalization ICD Code: I26.99 - Other pulmonary embolism without acute cor pulmonale Assessment and Plan This is a 67-year-old female with a history of hypertension, hyperlipidemia, SAD and colon cancer s/p colectomy. She presented originally to the emergency room for altered mental status. She was treated on the medical floor and then transferred to psych unit. Joe was called for respiratory distress earlier today Pulmonary Embolism, Acute - D dimer ordered, 9.8, - CT pulmonary angiogram Abnormal examination with upper and lower lobe proximal segmental pulmonary emboli bilaterally. There is overall moderate thrombus burden with mild prominence of the main pulmonary artery which may reflect some degree of pulmonary hypertension. No significant right heart strain by CT at this time. - NS bolus given - Lovenox full strength given x 1 - Start apixaban 10 mg twice a day 7 days then apixaban 5 mg twice a day - O2 nasal cannula, titrate to O2 sat greater than 90% SIRS, elevated HR, lactic 2.1, unknown source, s/p colectomy -CT abdomen ordered given history of colectomy showed1. Organizing subcutaneous right lower quadrant anterior abdominal wall induration likely postsurgical. This does not yet have the appearance of a focal drainable fluid collection. 2. Postsurgical features of right hemicolectomy without evidence for intra- abdominal abscess as questioned. - Zosyn IV started empirically - UA ordered - Reports constipation. Nontender to palpation. Start bowel regimen. Hypertension, controlled - Cont hydralazine SAD exacerbation. - Further management per psychiatry DVT prophylaxis: Apixaban Attending Statement Patient seen/examined. Currently on supplemental O2 via NC. CT PE shows bilateral PE which is consistent with clinical scenario of sudden onset of dyspnea, tachycardia and elevated D-dimer. Reviewed patient's labs including creatinine. We will start patient on Apixaban 10mg BID X 7 days then 5mg BID. Paolo Packer Aug 22, 2017 14:08 Yari Jo DO Aug 22, 2017 22:21
--- NOTE | 2017-08-22 19:23 | EKG ---
Date Performed: 08/22/2017 Time Performed: 04:10:08 PTAGE: 67 years EKG: Sinus tachycardia ST junctional depression is nonspecific Borderline ECG NO PREVIOUS TRACING DOCTOR: Heladio Waldrop Interpretating Date/Time 08/22/2017 19:21:28
[2017-08-22 20:01] VITALS: BP 129/60; PULSE 100; RESP 16; TEMP 97.9; O2SAT 93
[2017-08-22] MEDS: REMOVE OLD NICOTINE PATCH T-DERMAL SCH (21:00)
[2017-08-22] MEDS: hydrALAZINE HCL 25 MG TAB PO SCH (21:10)
[2017-08-22] MEDS: PANTOPRAZOLE SOD 40 MG DELAYED RELEASE TAB PO SCH (21:10)
[2017-08-22] MEDS: FENOFIBRATE 48 MG TAB PO SCH (21:10)
[2017-08-22] MEDS: FERROUS SULFATE 325 MG (65 MG ELEMENTAL IRON) TAB PO SCH (21:11)
[2017-08-22] MEDS: APIXABAN 5 MG TABLET PO SCH (21:11)
[2017-08-22] MEDS: risperiDONE 3 MG TAB PO SCH (21:11)
[2017-08-22 21:52] VITALS: O2SAT 95
[2017-08-23 06:00] VITALS: BP 132/64; PULSE 104; RESP 19; TEMP 96.8; O2SAT 96
--- NOTE | 2017-08-23 08:36 | HHI.PR ---
Subjective Remarks Follow-up visit pulmonary embolism, HTN, generalized weakness. Patient seen and examined today. Reports she continues to feel weak. Denies any worsening of shortness of breath. Tolerating 2 L nasal cannula 96% O2 saturation. Denies pain and discomfort. Denies chest pain, palpitations, headaches, dizziness. Denies fevers, chills, n/v/d. Denies dysuria. Objective Vitals Vital Signs Date Time Temp Pulse Resp B/P (MAP) Pulse Ox O2 Delivery O2 Flow Rate FiO2 08/23/17 06:00 96.8 104 19 132/64 (86) 96 08/22/17 21:52 95 Nasal Cannula 2.00 08/22/17 20:01 97.9 100 16 129/60 (83) 93 I/O 08/22/17 08/22/17 08/22/17 08/23/17 08/23/17 08/23/17 07:00 15:00 23:00 07:00 15:00 23:00 Intake Total 720 ml Balance 720 ml Intake Oral 720 ml # Voids 1 2 Result Diagram: 08/22/17 0403 08/22/17 0403 Imaging Last Impressions Chest X-Ray 08/22/17 0000 Signed Impressions: Service Date/Time: Tuesday, August 22, 2017 03:52 - CONCLUSION: Trace left base atelectasis. Ric Kemp MD CT Angiography 08/22/17 0000 Signed Impressions: Service Date/Time: Tuesday, August 22, 2017 12:38 - CONCLUSION: 1. Abnormal examination with upper and lower lobe proximal segmental pulmonary emboli bilaterally. There is overall moderate thrombus burden with mild prominence of the main pulmonary artery which may reflect some degree of pulmonary hypertension. No significant right heart strain by CT at this time. Filiberto Pleitez MD Abdomen/Pelvis CT 08/22/17 0000 Signed Impressions: Service Date/Time: Tuesday, August 22, 2017 12:28 - CONCLUSION: 1. Organizing subcutaneous right lower quadrant anterior abdominal wall induration likely postsurgical. This does not yet have the appearance of a focal drainable fluid collection. 2. Postsurgical features of right hemicolectomy without evidence for intra-abdominal abscess as questioned. Filiberto Pleitez MD Objective Remarks GENERAL: This is a well-nourished, well-developed patient, in no apparent distress. SKIN: Warm and dry. HEENT: Normocephalic. Pupils equal round and reactive. Nose without bleeding. Airway patent. NECK: Trachea midline. No JVD. Supple. CARDIOVASCULAR: Regular rate and rhythm without murmurs, gallops, or rubs. RESPIRATORY: Diminished Left Lobe. No wheezes, rales, or rhonchi. GASTROINTESTINAL: Abdomen soft, non-tender, nondistended. Bowel Sounds hypoactive. MUSCULOSKELETAL: Extremities without clubbing, cyanosis, or edema. NEUROLOGICAL: Awake and alert. Oriented to place, person. No focal neuro deficit. Moves all extremities. Normal speech. A/P Problem List: (1) S/P colectomy ICD Code: Z90.49 - Acquired absence of other specified parts of digestive tract Status: Chronic (2) Schizoaffective disorder ICD Code: F25.9 - Schizoaffective disorder, unspecified Status: Acute (3) HTN (hypertension) ICD Code: I10 - Essential (primary) hypertension Status: Chronic (4) Diabetes mellitus ICD Code: E11.9 - Type 2 diabetes mellitus without complications (5) Pulmonary embolism during current hospitalization ICD Code: I26.99 - Other pulmonary embolism without acute cor pulmonale Assessment and Plan This is a 67-year-old female with a history of hypertension, hyperlipidemia, SAD and colon cancer s/p colectomy. She presented originally to the emergency room for altered mental status. She was treated on the medical floor and then transferred to psych unit. Pulmonary Embolism, Acute - D dimer ordered, 9.8, - CT pulmonary angiogram Abnormal examination with upper and lower lobe proximal segmental pulmonary emboli bilaterally. There is overall moderate thrombus burden with mild prominence of the main pulmonary artery which may reflect some degree of pulmonary hypertension. No significant right heart strain by CT at this time. - NS bolus given x1 - Lovenox full strength given x 1 - Start apixaban 10 mg twice a day 7 days then apixaban 5 mg twice a day. - O2 nasal cannula, titrate to O2 sat greater than 90%. Now tolerating 2L NC - Chest x-ray showed trace left base atelectasis. Incentive spirometer. Duonebs. SIRS, elevated HR, lactic 2.1, unknown source, s/p colectomy -CT abdomen ordered given history of colectomy showed1. Organizing subcutaneous right lower quadrant anterior abdominal wall induration likely postsurgical. This does not yet have the appearance of a focal drainable fluid collection. 2. Postsurgical features of right hemicolectomy without evidence for intra-abdominal abscess as questioned. - UA ordered. - Reports constipation. Nontender to palpation. Start bowel regimen. Hypertension, controlled - Cont hydralazine SAD exacerbation. - Further management per psychiatry Generalized weakness - PT eval and treat - Assist with ADLs DVT prophylaxis: Apixaban Discussed with nursing, patient, Paolo Pearce Aug 23, 2017 08:36
[2017-08-23] MEDS: NICOTINE 21 MG/24 HR PATCH T-DERMAL SCH (09:00)
[2017-08-23] MEDS ORDERED: SENNOSIDES 8.6 MG TAB PO PRN (09:15)
[2017-08-23] MEDS: DOCUSATE SODIUM 50 MG/SENNA 8.6 MG TAB PO SCH ×2 (09:37→21:43)
[2017-08-23] MEDS: APIXABAN 5 MG TABLET PO SCH ×2 (09:38→21:42)
[2017-08-23] MEDS: risperiDONE 1 MG TAB PO SCH (09:38)
--- NOTE | 2017-08-23 10:26 | HHI.PYPN ---
Subjective Remarks Patient seen for follow-up, chart reviewed. Patient seen for follow up; chart reviewed. Patient noted to be calm and cooperative with interview. Patient states that she is feeling better and feels that she is getting back to herself. Denies SI, HI AVH or delusions. She reports having been visited by her last evening. Admissions Assistant spoke with via telephone who stated that yesterday was the first day that he had noticed his returning back to being herself. He states that there has been a big improvement. Review of Systems Except as stated in HPI: all other systems reviewed are Neg Objective Alert: Yes [place]: Person, Place Mood: Calm Affect: Restricted Memory Intact: Comment (impaired at this time) Hallucinations: Other (denies) Delusions: No Delusion Type: Paranoid (denied) Suicidal: Ideation (denies) Homicidal: Ideation (denies) Insight/Judgment improved insight, fair impulse control and judgment Labs Test 08/22/17 12:12 08/22/17 12:15 Lactic Acid Level 2.5 mmol/L Amylase Level 26 U/L Lipase 120 U/L Vitals/IOs Vital Signs Date Time Temp Pulse Resp B/P (MAP) Pulse Ox O2 Delivery O2 Flow Rate FiO2 08/23/17 06:00 96.8 104 19 132/64 (86) 96 08/22/17 21:52 Nasal Cannula 2.00 08/22/17 08:24 40 Intake and Output 08/23/17 08/23/17 08/24/17 08:00 16:00 00:00 Intake Total 240 ml Balance 240 ml Assessment & Plan Problem List: (1) Schizoaffective disorder ICD Codes: F25.9 - Schizoaffective disorder, unspecified Status: Acute Assessment & Plan Patient noted to be responding to treatment, more organized thought process. Will continue current treatment for now. Recommendations as per primary medical team. Discharge planning in progress. Justification for Cont. Inpt. At risk for further decompensation if at lower level of care. Te Arzate MD Aug 23, 2017 10:26
[2017-08-23 11:30] LABS: HEMATOCRIT 30.8 % (35.0-46.0); MEAN CELL VOLUME 77.4 FL (80.0-100.0); MEAN CORPUSCULAR HEMOGLOBIN 23.9 PG (27.0-34.0); MEAN CORPUSCULAR HGB CONC 30.9 % (32.0-36.0); PLATELET COUNT 266 TH/MM3 (150-450); RED BLOOD COUNT 3.97 MIL/MM3 (4.00-5.30); WHITE BLOOD COUNT 7.5 TH/MM3 (4.0-11.0)
[2017-08-23 11:33] LABS: REVIEW FLAG FINAL
[2017-08-23 11:49] LABS: BICARBONATE 25.4 MEQ/L (21.0-32.0); POTASSIUM 3.9 MEQ/L (3.5-5.1)
[2017-08-23 11:52] LABS: INDIRECT BILIRUBIN 0.3 MG/DL (0.0-0.8); TOTAL BILIRUBIN ADULT 0.5 MG/DL (0.2-1.0)
[2017-08-23 17:29] VITALS: BP 152/67; PULSE 113; RESP 18; TEMP 98.4; O2SAT 95
[2017-08-23] MEDS: REMOVE OLD NICOTINE PATCH T-DERMAL SCH (21:00)
[2017-08-23] MEDS: FENOFIBRATE 48 MG TAB PO SCH (21:42)
[2017-08-23] MEDS: hydrALAZINE HCL 25 MG TAB PO SCH (21:43)
[2017-08-23] MEDS: FERROUS SULFATE 325 MG (65 MG ELEMENTAL IRON) TAB PO SCH (21:43)
[2017-08-23] MEDS: PANTOPRAZOLE SOD 40 MG DELAYED RELEASE TAB PO SCH (21:43)
[2017-08-23] MEDS: risperiDONE 3 MG TAB PO SCH (21:43)
[2017-08-23] MEDS: LORazepam 0.5 MG TAB age > 65 yrs PO PRN (23:17)
[2017-08-24] MEDS: ACETAMINOPHEN 325 MG TAB PO PRN (02:27)
[2017-08-24 05:07] VITALS: BP 118/63; PULSE 108; RESP 16; TEMP 98.5; O2SAT 95
[2017-08-24] MEDS ORDERED: traMADol HCL 50 MG TAB PO ONE (05:15)
[2017-08-24] MEDS: NICOTINE 21 MG/24 HR PATCH T-DERMAL SCH (08:17)
[2017-08-24] MEDS: risperiDONE 1 MG TAB PO SCH (08:35)
[2017-08-24] MEDS: APIXABAN 5 MG TABLET PO SCH ×2 (08:35→20:45)
[2017-08-24] MEDS: DOCUSATE SODIUM 50 MG/SENNA 8.6 MG TAB PO SCH ×2 (08:35→20:45)
--- NOTE | 2017-08-24 08:51 | HHI.PR ---
Subjective Remarks Follow-up visit pulmonary embolism, HTN, generalized weakness, constipation. Patient seen and examined today. States he is doing well. Patient reports Eliquis is good for her. Reports constipation. Denies any worsening of shortness of breath. Denies pain and discomfort. Denies chest pain, palpitations, headaches, dizziness. Denies fevers, chills, n/v/d. Denies dysuria. Objective Vitals Vital Signs Date Time Temp Pulse Resp B/P (MAP) Pulse Ox O2 Delivery O2 Flow Rate FiO2 08/24/17 05:07 98.5 108 16 118/63 (81) 95 08/24/17 03:27 16 08/23/17 17:29 98.4 113 18 152/67 (95) 95 I/O 08/23/17 08/23/17 08/23/17 08/24/17 08/24/17 08/24/17 07:00 15:00 23:00 07:00 15:00 23:00 Intake Total 480 ml 480 ml Balance 480 ml 480 ml Intake Oral 480 ml 480 ml # Voids 2 2 6 # Bowel Movements 1 1 Result Diagram: 08/23/17 1040 08/23/17 1040 Imaging Last Impressions Chest X-Ray 08/22/17 0000 Signed Impressions: Service Date/Time: Tuesday, August 22, 2017 03:52 - CONCLUSION: Trace left base atelectasis. Ric Kemp MD CT Angiography 08/22/17 0000 Signed Impressions: Service Date/Time: Tuesday, August 22, 2017 12:38 - CONCLUSION: 1. Abnormal examination with upper and lower lobe proximal segmental pulmonary emboli bilaterally. There is overall moderate thrombus burden with mild prominence of the main pulmonary artery which may reflect some degree of pulmonary hypertension. No significant right heart strain by CT at this time. Filiberto Pleitez MD Abdomen/Pelvis CT 08/22/17 0000 Signed Impressions: Service Date/Time: Tuesday, August 22, 2017 12:28 - CONCLUSION: 1. Organizing subcutaneous right lower quadrant anterior abdominal wall induration likely postsurgical. This does not yet have the appearance of a focal drainable fluid collection. 2. Postsurgical features of right hemicolectomy without evidence for intra-abdominal abscess as questioned. Filiberto Pleitez MD Objective Remarks GENERAL: This is a well-nourished, well-developed patient, in no apparent distress. SKIN: Warm and dry. HEENT: Normocephalic. Pupils equal round and reactive. Nose without bleeding. Airway patent. NECK: Trachea midline. No JVD. Supple. CARDIOVASCULAR: Regular rate and rhythm without murmurs, gallops, or rubs. RESPIRATORY: Diminished Left Lobe. No wheezes, rales, or rhonchi. GASTROINTESTINAL: Abdomen soft, non-tender, nondistended. Bowel Sounds hypoactive. MUSCULOSKELETAL: Extremities without clubbing, cyanosis, or edema. NEUROLOGICAL: Awake and alert. Oriented to place, person. No focal neuro deficit. Moves all extremities. Normal speech. A/P Problem List: (1) S/P colectomy ICD Code: Z90.49 - Acquired absence of other specified parts of digestive tract Status: Chronic (2) Schizoaffective disorder ICD Code: F25.9 - Schizoaffective disorder, unspecified Status: Acute (3) HTN (hypertension) ICD Code: I10 - Essential (primary) hypertension Status: Chronic (4) Diabetes mellitus ICD Code: E11.9 - Type 2 diabetes mellitus without complications (5) Pulmonary embolism during current hospitalization ICD Code: I26.99 - Other pulmonary embolism without acute cor pulmonale Assessment and Plan This is a 67-year-old female with a history of hypertension, hyperlipidemia, SAD and colon cancer s/p colectomy. She presented originally to the emergency room for altered mental status. She was treated on the medical floor and then transferred to psych unit. Pulmonary Embolism, Acute - D dimer ordered, 9.8, - CT pulmonary angiogram Abnormal examination with upper and lower lobe proximal segmental pulmonary emboli bilaterally. There is overall moderate thrombus burden with mild prominence of the main pulmonary artery which may reflect some degree of pulmonary hypertension. No significant right heart strain by CT at this time. - NS bolus given x1 - Lovenox full strength given x 1 - Apixaban 10 mg twice a day 7 days then apixaban 5 mg twice a day. - O2 nasal cannula, titrate to O2 sat greater than 90%. Now tolerating 2L NC - Chest x-ray showed trace left base atelectasis. Incentive spirometer. Duonebs. SIRS, elevated HR, lactic 2.1, unknown source, s/p colectomy -CT abdomen ordered given history of colectomy showed1. Organizing subcutaneous right lower quadrant anterior abdominal wall induration likely postsurgical. This does not yet have the appearance of a focal drainable fluid collection. 2. Postsurgical features of right hemicolectomy without evidence for intra-abdominal abscess as questioned. - Possibly related to PE. - Reports constipation. Nontender to palpation. Start bowel regimen. Hypertension, controlled - Cont hydralazine SAD exacerbation. - Further management per psychiatry Generalized weakness - PT eval and treat - Assist with ADLs DVT prophylaxis: Apixaban Discussed with nursing, patient, Paolo Pearce Aug 24, 2017 08:51
[2017-08-24 09:41] VITALS: O2SAT 96
[2017-08-24] MEDS ORDERED: POLYETHYLENE GLYCOL 17 GM PKG PO ONE (10:00)
[2017-08-24] MEDS ORDERED: BISACODYL 10 MG SUPP RECTAL ONE (10:00)
--- NOTE | 2017-08-24 13:40 | PD.TTN ---
Patient Problems 1. Discharge planning 2. Medication compliance 3. Knowledge deficit 4. Lack of coping skills Progress Toward Goals Provider Present: Dr. Dony Arzate Provider Input: Per doctor patient is to be encouraged with meals, continue current treatment and possibly discharged home with follow-up Tuesday08/26/2017. Nurse(s) Present: MERRILL Coronel Nurse(s) Input: Patient is taking her medication, alert with no compliant Psychiatric Counselors Present: BRIGITTE Cho Psych Therapist Input: Patient will be dc with appropriate medical and mental health service in place Group Spec/RT/OT/CHOPRA Present: Josué Calix OT Group Spec/RT/OT/CHOPRA Input: Patient has not participated with activities Documentation Scribe: BRIGITTE Cho Sandra LMHC Aug 24, 2017 13:40
--- NOTE | 2017-08-24 17:01 | HHI.PYPN ---
Subjective Remarks Patient seen for follow-up, chart reviewed. Patient found lying in hospital bed , cooperative interview. Patient alert and oriented 3. Patient states that she had been sleeping well, tolerating medications well with no adverse drug reactions. Patient states she was visited by her yesterday which she reports had been pleasant. Patient denies any perceptual disturbances, noted to be organized and thought process but states having slight racing thoughts but reports able to organize her thoughts well. At this time denies SI, HI, AVH or delusions. Review of Systems Except as stated in HPI: all other systems reviewed are Neg Mental Status Examination Consciousness: Alert Appearance: Appropriate Speech: Unremarkable Orientation: x3 Memory: Impaired (describe) (memory surrounding events prior to her discharge) Thought Content: Linear, Logical Thought Associations: Intact Language: Other (fluent and spontaneous) Fund of Knowledge: Average Hallucination Type: None Attention and Concentration: Good Suicidal Ideation: No Previous Suicide Attempts: No Homicidal Ideation: No Previous Homicide Attempts: No Insight: Fair Judgment: Adequate Affect: Other (restricted) Mood: Appropriate, Other ("too happy") Results Vitals/IOs Vital Signs Date Time Temp Pulse Resp B/P (MAP) Pulse Ox O2 Delivery O2 Flow Rate FiO2 08/24/17 09:41 96 Nasal Cannula 2.00 08/24/17 05:07 98.5 108 16 118/63 (81) 08/22/17 08:24 40 Intake and Output 08/24/17 08/24/17 08/25/17 08:00 16:00 00:00 Intake Total 360 ml Balance 360 ml Assessment & Plan Problem List: (1) Schizoaffective disorder ICD Codes: F25.9 - Schizoaffective disorder, unspecified Status: Acute Assessment & Plan Patient noted to be improving with current treatment. Patient no longer disorganized nor endorsing auditory hallucinations. Patient to continue recommendations as per primary medical team. Patient likely for discharge later this week if continues to have consistent stable mood and no evidence of anum and psychosis. Continue current treatment. Discharge planning in progress Justification for Cont. Inpt. At risk for further decompensation if at lower level of care Te Arzate MD Aug 24, 2017 17:01
[2017-08-24 19:24] VITALS: BP 171/83; PULSE 113; RESP 18; TEMP 98.2; O2SAT 93
[2017-08-24] MEDS: REMOVE OLD NICOTINE PATCH T-DERMAL SCH (20:42)
[2017-08-24] MEDS: FERROUS SULFATE 325 MG (65 MG ELEMENTAL IRON) TAB PO SCH (20:44)
[2017-08-24] MEDS: hydrALAZINE HCL 25 MG TAB PO SCH (20:45)
[2017-08-24] MEDS: PANTOPRAZOLE SOD 40 MG DELAYED RELEASE TAB PO SCH (20:45)
[2017-08-24] MEDS: FENOFIBRATE 48 MG TAB PO SCH (20:45)
[2017-08-24] MEDS: risperiDONE 3 MG TAB PO SCH (20:45)
[2017-08-24] MEDS ORDERED: cloNIDine HCL 0.1 MG TAB PO PRN (21:00)
[2017-08-24] MEDS ORDERED: PILL SPLITTER OTHER PRN (21:00)
[2017-08-25 03:32] VITALS: BP 151/70; PULSE 113; RESP 15; TEMP 97.4; O2SAT 98
--- NOTE | 2017-08-25 08:19 | HHI.PR ---
Subjective Remarks Follow-up visit pulmonary embolism, HTN, generalized weakness, constipation. Patient seen and examined today. States he is okay. Reports continues to have shortness of breath but not worsening. Continue on 2 L nasal cannula. Denies pain and discomfort. Denies chest pain, palpitations, headaches, dizziness. Denies fevers, chills, n/v/d. Denies dysuria. Objective Vitals Vital Signs Date Time Temp Pulse Resp B/P (MAP) Pulse Ox O2 Delivery O2 Flow Rate FiO2 08/25/17 03:32 97.4 113 15 151/70 (97) 98 08/24/17 21:00 Nasal Cannula 1.00 08/24/17 19:24 98.2 113 18 171/83 (112) 93 08/24/17 09:41 96 Nasal Cannula 2.00 I/O 08/24/17 08/24/17 08/24/17 08/25/17 08/25/17 08/25/17 07:00 15:00 23:00 07:00 15:00 23:00 Intake Total 480 ml 360 ml 842 ml 400 ml Balance 480 ml 360 ml 842 ml 400 ml Intake Oral 480 ml 360 ml 842 ml 400 ml # Voids 6 2 2 # Bowel Movements 1 1 1 Result Diagram: 08/23/17 1040 08/23/17 1040 Imaging Last Impressions Chest X-Ray 08/22/17 0000 Signed Impressions: Service Date/Time: Tuesday, August 22, 2017 03:52 - CONCLUSION: Trace left base atelectasis. Ric Kemp MD CT Angiography 08/22/17 0000 Signed Impressions: Service Date/Time: Tuesday, August 22, 2017 12:38 - CONCLUSION: 1. Abnormal examination with upper and lower lobe proximal segmental pulmonary emboli bilaterally. There is overall moderate thrombus burden with mild prominence of the main pulmonary artery which may reflect some degree of pulmonary hypertension. No significant right heart strain by CT at this time. Filiberto Pleitez MD Abdomen/Pelvis CT 08/22/17 0000 Signed Impressions: Service Date/Time: Tuesday, August 22, 2017 12:28 - CONCLUSION: 1. Organizing subcutaneous right lower quadrant anterior abdominal wall induration likely postsurgical. This does not yet have the appearance of a focal drainable fluid collection. 2. Postsurgical features of right hemicolectomy without evidence for intra-abdominal abscess as questioned. Filiberto Pleitez MD Objective Remarks GENERAL: This is a well-nourished, well-developed patient, in no apparent distress. SKIN: Warm and dry. HEENT: Normocephalic. Pupils equal round and reactive. Nose without bleeding. Airway patent. Oral mucosa dry. NECK: Trachea midline. No JVD. Supple. CARDIOVASCULAR: Regular rate and rhythm without murmurs, gallops, or rubs. RESPIRATORY: Diminished bases R>L. No wheezes, rales, or rhonchi. GASTROINTESTINAL: Abdomen soft, non-tender, nondistended. Bowel Sounds hypoactive. MUSCULOSKELETAL: Extremities without clubbing, cyanosis, or edema. NEUROLOGICAL: Awake and alert. Oriented to place, person. Moves all extremities. Normal speech. A/P Problem List: (1) S/P colectomy ICD Code: Z90.49 - Acquired absence of other specified parts of digestive tract Status: Chronic (2) Schizoaffective disorder ICD Code: F25.9 - Schizoaffective disorder, unspecified Status: Acute (3) HTN (hypertension) ICD Code: I10 - Essential (primary) hypertension Status: Chronic (4) Diabetes mellitus ICD Code: E11.9 - Type 2 diabetes mellitus without complications (5) Pulmonary embolism during current hospitalization ICD Code: I26.99 - Other pulmonary embolism without acute cor pulmonale Assessment and Plan This is a 67-year-old female with a history of hypertension, hyperlipidemia, SAD and colon cancer s/p colectomy. She presented originally to the emergency room for altered mental status. She was treated on the medical floor and then transferred to psych unit. Pulmonary Embolism, Acute - D dimer 9.8, NS bolus given x1, Lovenox full strength given x 1 - CT pulmonary angiogram Abnormal examination with upper and lower lobe proximal segmental pulmonary emboli bilaterally. There is overall moderate thrombus burden with mild prominence of the main pulmonary artery which may reflect some degree of pulmonary hypertension. No significant right heart strain by CT at this time. - Chest x-ray showed trace left base atelectasis. Incentive spirometer. Duonebs - Apixaban 10 mg twice a day 7 days then apixaban 5 mg twice a day. - O2 nasal cannula, titrate to O2 sat greater than 90%. Now tolerating 2L NC - Needs to increase physical activity. OOB to chair, ambulation SIRS, elevated HR, lactic 2.1, unknown source, s/p colectomy - Resolved -CT abdomen ordered given history of colectomy showed1. Organizing subcutaneous right lower quadrant anterior abdominal wall induration likely postsurgical. This does not yet have the appearance of a focal drainable fluid collection. 2. Postsurgical features of right hemicolectomy without evidence for intra-abdominal abscess as questioned. - Possibly related to PE. - Blood cultures no growth in 5 days. WBC trended down - Resolved. Hypertension - Uncontrolled yesterday - DC hydralazione, start amlodipine 2.5 mg, losartan - Clonidine PRN - Monitor BP trend SAD exacerbation. - Further management per psychiatry Generalized weakness - PT eval and treat - Assist with ADLs DVT prophylaxis: Apixaban Discussed with nursing, patient, Paolo Pearce Aug 25, 2017 08:19
[2017-08-25] MEDS: NICOTINE 21 MG/24 HR PATCH T-DERMAL SCH (09:00)
[2017-08-25] MEDS: LOSARTAN 25 MG TAB PO SCH (09:14)
[2017-08-25] MEDS: risperiDONE 3 MG TAB PO SCH (09:15)
[2017-08-25] MEDS: amLODIPine BESYLATE 5 MG TAB PO SCH (09:15)
[2017-08-25] MEDS: APIXABAN 5 MG TABLET PO SCH ×2 (09:15→21:16)
[2017-08-25] MEDS: DOCUSATE SODIUM 50 MG/SENNA 8.6 MG TAB PO SCH ×2 (09:16→21:15)
--- NOTE | 2017-08-25 11:28 | HHI.PYPN ---
Subjective Remarks Patient seen for follow-up, chart reviewed. Patient found lying on hospital bed , alert and oriented x 3. Patient noted to have decreased facial expression, thought process improved as she answers appropriately but also noted to have stiffness with limited spontaneous movement which suggests likely EPS from antipsychotic. Patient denies any physical complaint, reports having been able to ambulate to the bathroom. Denies SI, HI, AVH or delusions. Review of Systems Except as stated in HPI: all other systems reviewed are Neg Mental Status Examination Consciousness: Alert Appearance: Appropriate Speech: Unremarkable Orientation: x3 Memory: Impaired (describe) (memory surrounding events prior to her discharge) Thought Content: Linear, Logical Thought Associations: Intact Language: Other (fluent and spontaneous) Fund of Knowledge: Average Hallucination Type: None Attention and Concentration: Good Suicidal Ideation: No Previous Suicide Attempts: No Homicidal Ideation: No Previous Homicide Attempts: No Insight: Fair Judgment: Adequate Affect: Other (restricted) Mood: Appropriate, Other ("too happy") Results Vitals/IOs Vital Signs Date Time Temp Pulse Resp B/P (MAP) Pulse Ox O2 Delivery O2 Flow Rate FiO2 08/25/17 03:32 97.4 113 15 151/70 (97) 98 08/24/17 21:00 Nasal Cannula 1.00 08/22/17 08:24 40 Intake and Output 08/25/17 08/25/17 08/26/17 08:00 16:00 00:00 Intake Total 400 ml 120 ml Balance 400 ml 120 ml Assessment & Plan Problem List: (1) Schizoaffective disorder ICD Codes: F25.9 - Schizoaffective disorder, unspecified Status: Acute Assessment & Plan Patient with likely parkinsonism secondary to EPS. Will decrease Risperdal to 2mg PO BID, add cogentin 0.5mg PO BID. Monitor for medication response. Continue to encourage ambulation. Discharge planning in progress. Justification for Cont. Inpt. At risk for further decompensation if at lower level of care. Te Arzate MD Aug 25, 2017 10:49
[2017-08-25] MEDS: ACETAMINOPHEN 325 MG TAB PO PRN (13:22)
[2017-08-25 18:09] VITALS: BP 130/60; PULSE 104; RESP 17; TEMP 97.6; O2SAT 95
[2017-08-25] MEDS: REMOVE OLD NICOTINE PATCH T-DERMAL SCH (21:00)
[2017-08-25] MEDS: FERROUS SULFATE 325 MG (65 MG ELEMENTAL IRON) TAB PO SCH (21:15)
[2017-08-25] MEDS: risperiDONE 1 MG TAB PO SCH (21:15)
[2017-08-25] MEDS: FENOFIBRATE 48 MG TAB PO SCH (21:15)
[2017-08-25] MEDS: PANTOPRAZOLE SOD 40 MG DELAYED RELEASE TAB PO SCH (21:15)
[2017-08-25] MEDS: BENZTROPINE MESYLATE 1 MG TAB PO SCH (21:16)
[2017-08-26 05:24] VITALS: BP 134/50; PULSE 99; RESP 15; TEMP 98.7
[2017-08-26 08:16] VITALS: BP 144/67; PULSE 105; O2SAT 93
[2017-08-26] MEDS: APIXABAN 5 MG TABLET PO SCH ×2 (08:17→21:45)
[2017-08-26] MEDS: risperiDONE 3 MG TAB PO SCH (08:17)
[2017-08-26] MEDS: amLODIPine BESYLATE 5 MG TAB PO SCH (08:18)
[2017-08-26] MEDS: LOSARTAN 25 MG TAB PO SCH ×2 (08:18→21:00)
[2017-08-26] MEDS: BENZTROPINE MESYLATE 1 MG TAB PO SCH ×2 (08:18→21:45)
[2017-08-26] MEDS: DOCUSATE SODIUM 50 MG/SENNA 8.6 MG TAB PO SCH ×2 (08:18→20:13)
[2017-08-26] MEDS: NICOTINE 21 MG/24 HR PATCH T-DERMAL SCH (08:19)
[2017-08-26] MEDS ORDERED: GETGO ROLLING W1 MI1 (08:24)
[2017-08-26] MEDS ORDERED: COZA25TA PO (08:26)
[2017-08-26] MEDS ORDERED: AMLO5 PO (08:26)
[2017-08-26] MEDS ORDERED: APIX5TAB PO (08:26)
--- NOTE | 2017-08-26 08:56 | HHI.PR ---
Subjective Remarks Follow-up visit pulmonary embolism, HTN, generalized weakness, constipation. Patient seen and examined today. States she is doing well. Off oxygen 2 L nasal cannula. O2 sat checked 92-93%. Denies any shortness of breath, dyspnea. As per nursing, patient is ambulating with walker 1 assist, But is more mobile. Denies pain and discomfort. Denies SOB/ dyspnea. Denies chest pain, palpitations, headaches, dizziness. Denies fevers, chills, n/v/d. Denies dysuria. Objective Vitals Vital Signs Date Time Temp Pulse Resp B/P (MAP) Pulse Ox O2 Delivery O2 Flow Rate FiO2 08/26/17 08:16 105 144/67 (92) 93 08/26/17 05:24 98.7 99 15 134/50 (78) 08/25/17 18:09 97.6 104 17 130/60 (83) 95 08/25/17 14:22 18 I/O 08/25/17 08/25/17 08/25/17 08/26/17 08/26/17 08/26/17 06:59 14:59 22:59 06:59 14:59 22:59 Intake Total 400 ml 660 ml 240 ml 960 ml 240 ml Output Total 1 ml Balance 400 ml 660 ml 239 ml 960 ml 240 ml Intake Oral 400 ml 540 ml 240 ml 960 ml 240 ml Tube Feeding 120 ml Output Urine Total 1 ml # Voids 2 3 4 # Bowel Movements 1 2 Result Diagram: 08/23/17 1040 08/23/17 1040 Imaging Last Impressions Chest X-Ray 08/22/17 0000 Signed Impressions: Service Date/Time: Tuesday, August 22, 2017 03:52 - CONCLUSION: Trace left base atelectasis. Ric Kemp MD CT Angiography 08/22/17 0000 Signed Impressions: Service Date/Time: Tuesday, August 22, 2017 12:38 - CONCLUSION: 1. Abnormal examination with upper and lower lobe proximal segmental pulmonary emboli bilaterally. There is overall moderate thrombus burden with mild prominence of the main pulmonary artery which may reflect some degree of pulmonary hypertension. No significant right heart strain by CT at this time. Filiberto Pleitez MD Abdomen/Pelvis CT 08/22/17 0000 Signed Impressions: Service Date/Time: Tuesday, August 22, 2017 12:28 - CONCLUSION: 1. Organizing subcutaneous right lower quadrant anterior abdominal wall induration likely postsurgical. This does not yet have the appearance of a focal drainable fluid collection. 2. Postsurgical features of right hemicolectomy without evidence for intra-abdominal abscess as questioned. Filiberto Pleitez MD Objective Remarks GENERAL: This is a well-nourished, appears older than stated age, well- developed patient, in no apparent distress. SKIN: Warm and dry. HEENT: Normocephalic. Pupils equal round and reactive. Nose without bleeding. Airway patent. Oral mucosa dry. NECK: Trachea midline. No JVD. Supple. CARDIOVASCULAR: Regular rate and rhythm without murmurs, gallops, or rubs. RESPIRATORY: Diminished bases R>L. No wheezes, rales, or rhonchi. GASTROINTESTINAL: Abdomen soft, non-tender, nondistended. Bowel Sounds hypoactive. MUSCULOSKELETAL: Extremities without clubbing, cyanosis, or edema. NEUROLOGICAL: Awake and alert. Oriented to place, person. Moves all extremities. Normal speech. A/P Problem List: (1) S/P colectomy ICD Code: Z90.49 - Acquired absence of other specified parts of digestive tract Status: Chronic (2) Schizoaffective disorder ICD Code: F25.9 - Schizoaffective disorder, unspecified Status: Acute (3) HTN (hypertension) ICD Code: I10 - Essential (primary) hypertension Status: Chronic (4) Diabetes mellitus ICD Code: E11.9 - Type 2 diabetes mellitus without complications (5) Pulmonary embolism during current hospitalization ICD Code: I26.99 - Other pulmonary embolism without acute cor pulmonale Assessment and Plan This is a 67-year-old female with a history of hypertension, hyperlipidemia, SAD and colon cancer s/p colectomy. She presented originally to the emergency room for altered mental status. She was treated on the medical floor and then transferred to psych unit. Pulmonary Embolism, Acute - D dimer 9.8, NS bolus given x1, Lovenox full strength given x 1 - CT pulmonary angiogram Abnormal examination with upper and lower lobe proximal segmental pulmonary emboli bilaterally. There is overall moderate thrombus burden with mild prominence of the main pulmonary artery which may reflect some degree of pulmonary hypertension. No significant right heart strain by CT at this time. - Chest x-ray showed trace left base atelectasis. Incentive spirometer. Duonebs - Apixaban 10 mg twice a day 7 days then apixaban 5 mg twice a day. - O2 nasal cannula, titrate to O2 sat greater than 90%. Now tolerating 2L NC - Needs to increase physical activity. OOB to chair, ambulation SIRS, elevated HR, lactic 2.1, unknown source, s/p colectomy - Resolved -CT abdomen ordered given history of colectomy showed1. Organizing subcutaneous right lower quadrant anterior abdominal wall induration likely postsurgical. This does not yet have the appearance of a focal drainable fluid collection. 2. Postsurgical features of right hemicolectomy without evidence for intra-abdominal abscess as questioned. - Possibly related to PE. - Blood cultures no growth in 5 days. WBC trended down - Resolved. Hypertension - Uncontrolled - start amlodipine 2.5 mg, losartan 25mg BID - Clonidine PRN - Monitor BP trend SAD exacerbation. - Further management per psychiatry Generalized weakness - PT eval and treat. Recommends home healthcare PT and rolling walker - Assist with ADLs DVT prophylaxis: Apixaban Discussed with nursing, patient, Dr. Jo Discharge Planning May DC home with home healthcare PT, nursing. Follow-up with PCP for BP management and anticoagulant Eliquis to continue 3 months. Paolo Packer Aug 26, 2017 08:56
--- NOTE | 2017-08-26 10:11 | HHI.PYPN ---
Subjective Remarks Patient seen for follow-up, chart reviewed. Patient found in the common area watching television noted to be more reactive and having more facial expression but continues to be noted to have slight stiffness in her movements as well as some shuffling gait. She states that she has been feeling okay and has been able to be thinking clear. Patient denies feeling confused patient or alert and oriented 3 area patient reports that she is having some difficulty swallowing since yesterday but was able to take her medications today. Patient reports having had visited by family yesterday which she reports enjoyed. Review of Systems Except as stated in HPI: all other systems reviewed are Neg Mental Status Examination Appearance: Appropriate Consciousness: Alert Orientation: Person, Place, Date/Time Motor Activity: Abnormal gait (shuffling) Speech: Hesitant Language: Adequate Fund of Knowledge: Adequate Attention and Concentration: Adequate Memory: Unremarkable Mood: Good Affect: Other (reactive but delayed) Thought Process & Associations: Intact Thought Content: Appropriate Hallucination Type: None Delusion Type: None Suicidal Ideation: No Suicidal Plan: No Suicidal Intention: No Homicidal Ideation: No Homicidal Plan: No Homicidal Intention: No Insight: Fair Judgment: Adequate Results Vitals/IOs Vital Signs Date Time Temp Pulse Resp B/P (MAP) Pulse Ox O2 Delivery O2 Flow Rate FiO2 08/26/17 08:16 105 144/67 (92) 93 08/26/17 05:24 98.7 15 08/24/17 21:00 Nasal Cannula 1.00 08/22/17 08:24 40 Intake and Output 08/26/17 08/26/17 08/27/17 08:00 16:00 00:00 Intake Total 960 ml 240 ml Balance 960 ml 240 ml Assessment & Plan Problem List: (1) Schizoaffective disorder ICD Codes: F25.9 - Schizoaffective disorder, unspecified Status: Acute Assessment & Plan Patient continues to be noted to have what is likely 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 Dose was reduced last evening to 2 mg of risperidone twice a day along with the addition of Cogentin 0.5 by mouth twice a day. Patient appears to have more movement with more facial expression but continues to have some shuffling gait and substances. We'll increase Cogentin to 1 mg by mouth twice a day and will order speech consult to evaluate swallowing. Discharge planning in progress Justification for Cont. Inpt. At risk for further decompensation if at lower level of care. Discharge Planning Patient likely for discharge noted to 3 days as patient currently still requires adjustment of medications for stabilization and tolerance of side effects. Te Arzate MD Aug 26, 2017 10:11
[2017-08-26 11:52] LABS: HEMATOCRIT 34.1 % (35.0-46.0); MEAN CELL VOLUME 76.5 FL (80.0-100.0); MEAN CORPUSCULAR HEMOGLOBIN 23.7 PG (27.0-34.0); PLATELET COUNT 343 TH/MM3 (150-450); RED BLOOD COUNT 4.46 MIL/MM3 (4.00-5.30); RED CELL DISTRIBUTION WIDTH 26.2 % (11.6-17.2); WHITE BLOOD COUNT 7.2 TH/MM3 (4.0-11.0)
[2017-08-26 11:56] LABS: REVIEW FLAG FINAL
[2017-08-26 12:19] LABS: ANION GAP 8 MEQ/L (5-15); AST (GOT) 34 U/L (15-37); BICARBONATE 23.9 MEQ/L (21.0-32.0); BLOOD UREA NITROGEN 18 MG/DL (7-18); CHLORIDE 104 MEQ/L (98-107); GLOMERULAR FILTRATION RATE 63 ML/MIN (>89); POTASSIUM 3.9 MEQ/L (3.5-5.1); SODIUM (NA) 136 MEQ/L (136-145)
[2017-08-26 12:20] LABS: ALT (GPT) 84 U/L (10-53)
[2017-08-26 12:22] LABS: ALKALINE PHOSPHATASE 125 U/L (45-117); TOTAL BILIRUBIN ADULT 0.4 MG/DL (0.2-1.0)
[2017-08-26] MEDS: ACETAMINOPHEN 325 MG TAB PO PRN (15:52)
[2017-08-26 17:48] VITALS: O2SAT 93
[2017-08-26 19:12] VITALS: BP 108/56; PULSE 100; RESP 16; TEMP 98
[2017-08-26 20:52] VITALS: BP 121/61; PULSE 95; O2SAT 100
[2017-08-26] MEDS: REMOVE OLD NICOTINE PATCH T-DERMAL SCH (21:00)
[2017-08-26] MEDS: PANTOPRAZOLE SOD 40 MG DELAYED RELEASE TAB PO SCH (21:44)
[2017-08-26] MEDS: FERROUS SULFATE 325 MG (65 MG ELEMENTAL IRON) TAB PO SCH (21:45)
[2017-08-26] MEDS: risperiDONE 1 MG TAB PO SCH (21:45)
[2017-08-26] MEDS: FENOFIBRATE 48 MG TAB PO SCH (21:46)
[2017-08-27 05:02] VITALS: BP 115/51; PULSE 99; RESP 16; TEMP 98.2; O2SAT 94
[2017-08-27] MEDS: BENZTROPINE MESYLATE 1 MG TAB PO SCH ×2 (08:52→20:58)
[2017-08-27] MEDS: APIXABAN 5 MG TABLET PO SCH ×2 (08:53→20:59)
[2017-08-27] MEDS: LOSARTAN 25 MG TAB PO SCH ×2 (08:53→21:00)
--- NOTE | 2017-08-27 08:56 | HHI.PR ---
Subjective Remarks Follow-up visit pulmonary embolism, HTN, generalized weakness, constipation. Patient seen and examined today. States she is doing well. Denies any shortness of breath, dyspnea. Denies pain and discomfort. Denies SOB/ dyspnea. Denies chest pain, palpitations, headaches, dizziness. Denies fevers, chills, n/v/d. Denies dysuria. Objective Vitals Vital Signs Date Time Temp Pulse Resp B/P (MAP) Pulse Ox O2 Delivery O2 Flow Rate FiO2 08/27/17 05:02 98.2 99 16 115/51 (72) 94 08/26/17 20:52 95 121/61 (81) 100 08/26/17 19:12 98.0 100 16 108/56 (73) 08/26/17 17:48 93 21 I/O 08/26/17 08/26/17 08/26/17 08/27/17 08/27/17 08/27/17 07:00 15:00 23:00 07:00 15:00 23:00 Intake Total 960 ml 720 ml 480 ml 240 ml 120 ml Balance 960 ml 720 ml 480 ml 240 ml 120 ml Intake Oral 960 ml 720 ml 480 ml 240 ml 120 ml # Voids 4 2 1 3 # Bowel Movements 2 Result Diagram: 08/26/17 1125 08/26/17 1125 Imaging Last Impressions Chest X-Ray 08/22/17 0000 Signed Impressions: Service Date/Time: Tuesday, August 22, 2017 03:52 - CONCLUSION: Trace left base atelectasis. Ric Kemp MD CT Angiography 08/22/17 0000 Signed Impressions: Service Date/Time: Tuesday, August 22, 2017 12:38 - CONCLUSION: 1. Abnormal examination with upper and lower lobe proximal segmental pulmonary emboli bilaterally. There is overall moderate thrombus burden with mild prominence of the main pulmonary artery which may reflect some degree of pulmonary hypertension. No significant right heart strain by CT at this time. Filiberto Pleitez MD Abdomen/Pelvis CT 08/22/17 0000 Signed Impressions: Service Date/Time: Tuesday, August 22, 2017 12:28 - CONCLUSION: 1. Organizing subcutaneous right lower quadrant anterior abdominal wall induration likely postsurgical. This does not yet have the appearance of a focal drainable fluid collection. 2. Postsurgical features of right hemicolectomy without evidence for intra-abdominal abscess as questioned. Filiberto Pleitez MD Objective Remarks GENERAL: This is a well-nourished, appears older than stated age, well- developed patient, in no apparent distress. SKIN: Warm and dry. HEENT: Normocephalic. Pupils equal round and reactive. Nose without bleeding. Airway patent. Oral mucosa dry. NECK: Trachea midline. No JVD. Supple. CARDIOVASCULAR: Regular rate and rhythm without murmurs, gallops, or rubs. RESPIRATORY: Diminished bases R>L. No wheezes, rales, or rhonchi. GASTROINTESTINAL: Abdomen soft, non-tender, nondistended. Bowel Sounds hypoactive. MUSCULOSKELETAL: Extremities without clubbing, cyanosis, or edema. NEUROLOGICAL: Awake and alert. Oriented to place, person. Moves all extremities. Normal speech. A/P Problem List: (1) S/P colectomy ICD Code: Z90.49 - Acquired absence of other specified parts of digestive tract Status: Chronic (2) Schizoaffective disorder ICD Code: F25.9 - Schizoaffective disorder, unspecified Status: Acute (3) HTN (hypertension) ICD Code: I10 - Essential (primary) hypertension Status: Chronic (4) Diabetes mellitus ICD Code: E11.9 - Type 2 diabetes mellitus without complications (5) Pulmonary embolism during current hospitalization ICD Code: I26.99 - Other pulmonary embolism without acute cor pulmonale Assessment and Plan This is a 67-year-old female with a history of hypertension, hyperlipidemia, SAD and colon cancer s/p colectomy. She presented originally to the emergency room for altered mental status. She was treated on the medical floor and then transferred to psych unit. Pulmonary Embolism, Acute - D dimer 9.8, NS bolus given x1, Lovenox full strength given x 1 - CT pulmonary angiogram Abnormal examination with upper and lower lobe proximal segmental pulmonary emboli bilaterally. There is overall moderate thrombus burden with mild prominence of the main pulmonary artery which may reflect some degree of pulmonary hypertension. No significant right heart strain by CT at this time. - Chest x-ray showed trace left base atelectasis. Incentive spirometer. Duonebs - Apixaban 10 mg twice a day 7 days then apixaban 5 mg twice a day. - O2 nasal cannula, titrate to O2 sat greater than 90%. Now tolerating RA - Needs to increase physical activity. OOB to chair, ambulation - Patient reports vague history of previous PE, she may have to continue with Eliquis without stop date. SIRS, elevated HR, lactic 2.1, unknown source, s/p colectomy - Resolved -CT abdomen ordered given history of colectomy showed1. Organizing subcutaneous right lower quadrant anterior abdominal wall induration likely postsurgical. This does not yet have the appearance of a focal drainable fluid collection. 2. Postsurgical features of right hemicolectomy without evidence for intra-abdominal abscess as questioned. - Possibly related to PE. - Blood cultures no growth in 5 days. WBC trended down - Resolved. Hypertension - Uncontrolled - amlodipine 2.5 mg, losartan 25mg BID. Increase amlodipine 5mg - Clonidine PRN - Monitor BP trend SAD exacerbation. - Further management per psychiatry Generalized weakness - PT eval and treat. Recommends home healthcare PT and rolling walker - Assist with ADLs DVT prophylaxis: Apixaban Discussed with nursing, patient, Dr. Jo Discharge Planning May DC home with home healthcare PT, nursing. Follow-up with PCP for BP management and anticoagulant Eliquis to continue. Paolo Packer Aug 27, 2017 08:55
[2017-08-27] MEDS: risperiDONE 1 MG TAB PO SCH ×2 (08:57→20:59)
[2017-08-27] MEDS: amLODIPine BESYLATE 5 MG TAB PO SCH (09:00)
[2017-08-27] MEDS: DOCUSATE SODIUM 50 MG/SENNA 8.6 MG TAB PO SCH ×2 (09:00→20:59)
[2017-08-27] MEDS: NICOTINE 21 MG/24 HR PATCH T-DERMAL SCH (09:00)
[2017-08-27 09:24] VITALS: BP 160/98; PULSE 92; RESP 18
[2017-08-27 18:00] VITALS: BP 115/55; PULSE 94; RESP 16; TEMP 98; O2SAT 96
--- NOTE | 2017-08-27 18:55 | HHI.PYPN ---
Subjective Remarks Patient seen in day room, with nurse, patient compliant medications. Patient calm focused with me and pleasant. No behavior problems noted, now continue treatment Review of Systems Except as stated in HPI: all other systems reviewed are Neg Mental Status Examination Appearance: Appropriate Consciousness: Alert Orientation: Person, Place, Date/Time Motor Activity: Abnormal gait (shuffling) Speech: Hesitant Language: Adequate Fund of Knowledge: Adequate Attention and Concentration: Adequate Memory: Unremarkable Mood: Good Affect: Other (reactive but delayed) Thought Process & Associations: Intact Thought Content: Appropriate Hallucination Type: None Delusion Type: None Suicidal Ideation: No Suicidal Plan: No Suicidal Intention: No Homicidal Ideation: No Homicidal Plan: No Homicidal Intention: No Insight: Fair Judgment: Adequate Results Vitals/IOs Vital Signs Date Time Temp Pulse Resp B/P (MAP) Pulse Ox O2 Delivery O2 Flow Rate FiO2 08/27/17 18:00 98.0 94 16 115/55 (75) 96 08/26/17 17:48 21 08/24/17 21:00 Nasal Cannula 1.00 Intake and Output 08/27/17 08/27/17 08/28/17 08:00 16:00 00:00 Intake Total 360 ml 210 ml 1200 ml Balance 360 ml 210 ml 1200 ml Assessment & Plan Problem List: (1) Schizoaffective disorder ICD Codes: F25.9 - Schizoaffective disorder, unspecified Status: Acute Assessment & Plan Estimated LOS: days patient's mood and focus appear to be improving, she is pleasant, watching TV in day room Justification for Cont. Inpt. At this time patient made decompensate if placed in a lower level of care Discharge Planning Discharge planning to be determined by treatment team Tuesday Ric Cardona MD Aug 27, 2017 18:55
[2017-08-27] MEDS: FERROUS SULFATE 325 MG (65 MG ELEMENTAL IRON) TAB PO SCH (20:59)
[2017-08-27] MEDS: FENOFIBRATE 48 MG TAB PO SCH (20:59)
[2017-08-27] MEDS: LORazepam 0.5 MG TAB age > 65 yrs PO PRN (20:59)
[2017-08-27] MEDS: PANTOPRAZOLE SOD 40 MG DELAYED RELEASE TAB PO SCH (20:59)
[2017-08-27] MEDS: REMOVE OLD NICOTINE PATCH T-DERMAL SCH (21:00)
[2017-08-28 06:08] VITALS: BP 117/58; PULSE 91; RESP 16; TEMP 97.8; O2SAT 95
[2017-08-28 07:57] VITALS: O2SAT 94
--- NOTE | 2017-08-28 08:17 | HHI.PR ---
Subjective Remarks Follow-up visit pulmonary embolism, HTN, generalized weakness, constipation. Patient seen and examined today. States she is doing okay. States participating in therapy and has been ambulating with walker. Denies pain and discomfort. Denies SOB/ dyspnea. Denies chest pain, palpitations, headaches, dizziness. Denies fevers, chills, n/v/d. Denies dysuria. Objective Vitals Vital Signs Date Time Temp Pulse Resp B/P (MAP) Pulse Ox O2 Delivery O2 Flow Rate FiO2 08/28/17 07:57 94 21 08/28/17 06:08 97.8 91 16 117/58 (77) 95 08/27/17 18:00 98.0 94 16 115/55 (75) 96 08/27/17 09:24 92 18 160/98 (118) I/O 08/27/17 08/27/17 08/27/17 08/28/17 08/28/17 08/28/17 07:00 15:00 23:00 07:00 15:00 23:00 Intake Total 240 ml 330 ml 1300 ml 360 ml Balance 240 ml 330 ml 1300 ml 360 ml Intake Oral 240 ml 330 ml 1300 ml 360 ml # Voids 3 1 3 Result Diagram: 08/26/17 1125 08/26/17 1125 Imaging Last Impressions Chest X-Ray 08/22/17 Signed Impressions: Service Date/Time: Tuesday, August 22, 2017 03:52 - CONCLUSION: Trace left base atelectasis. Ric Kemp MD CT Angiography 08/22/17 Signed Impressions: Service Date/Time: Tuesday, August 22, 2017 12:38 - CONCLUSION: 1. Abnormal examination with upper and lower lobe proximal segmental pulmonary emboli bilaterally. There is overall moderate thrombus burden with mild prominence of the main pulmonary artery which may reflect some degree of pulmonary hypertension. No significant right heart strain by CT at this time. Filiberto Pleitez MD Abdomen/Pelvis CT 08/22/17 Signed Impressions: Service Date/Time: Tuesday, August 22, 2017 12:28 - CONCLUSION: 1. Organizing subcutaneous right lower quadrant anterior abdominal wall induration likely postsurgical. This does not yet have the appearance of a focal drainable fluid collection. 2. Postsurgical features of right hemicolectomy without evidence for intra-abdominal abscess as questioned. Filiberto Pleitez MD Objective Remarks GENERAL: This is a well-nourished, appears older than stated age, well- developed patient, in no apparent distress. SKIN: Warm and dry. HEENT: Normocephalic. Pupils equal round and reactive. Nose without bleeding. Airway patent. Oral mucosa dry. NECK: Trachea midline. No JVD. Supple. CARDIOVASCULAR: Regular rate and rhythm without murmurs, gallops, or rubs. RESPIRATORY: Diminished bases R>L. No wheezes, rales, or rhonchi. GASTROINTESTINAL: Abdomen soft, non-tender, nondistended. Bowel Sounds hypoactive. MUSCULOSKELETAL: Extremities without clubbing, cyanosis, or edema. NEUROLOGICAL: Awake and alert. Oriented to place, person. Moves all extremities. Normal speech. A/P Problem List: (1) S/P colectomy ICD Code: Z90.49 - Acquired absence of other specified parts of digestive tract Status: Chronic (2) Schizoaffective disorder ICD Code: F25.9 - Schizoaffective disorder, unspecified Status: Acute (3) HTN (hypertension) ICD Code: I10 - Essential (primary) hypertension Status: Chronic (4) Diabetes mellitus ICD Code: E11.9 - Type 2 diabetes mellitus without complications (5) Pulmonary embolism during current hospitalization ICD Code: I26.99 - Other pulmonary embolism without acute cor pulmonale Assessment and Plan This is a 67-year-old female with a history of hypertension, hyperlipidemia, SAD and colon cancer s/p colectomy. She presented originally to the emergency room for altered mental status. She was treated on the medical floor and then transferred to psych unit. Pulmonary Embolism, Acute - D dimer 9.8, NS bolus given x1, Lovenox full strength given x 1 - CT pulmonary angiogram Abnormal examination with upper and lower lobe proximal segmental pulmonary emboli bilaterally. There is overall moderate thrombus burden with mild prominence of the main pulmonary artery which may reflect some degree of pulmonary hypertension. No significant right heart strain by CT at this time. - Chest x-ray showed trace left base atelectasis. Incentive spirometer. Duonebs - Apixaban 10 mg twice a day 7 days then apixaban 5 mg twice a day. - O2 nasal cannula, titrate to O2 sat greater than 90%. Now tolerating RA - Needs to increase physical activity. OOB to chair, ambulation - Patient reports vague history of previous PE, she may have to continue with Eliquis without stop date. SIRS, elevated HR, lactic 2.1, unknown source, s/p colectomy - Resolved -CT abdomen ordered given history of colectomy showed1. Organizing subcutaneous right lower quadrant anterior abdominal wall induration likely postsurgical. This does not yet have the appearance of a focal drainable fluid collection. 2. Postsurgical features of right hemicolectomy without evidence for intra-abdominal abscess as questioned. - Possibly related to PE. - Blood cultures no growth in 5 days. WBC trended down - Resolved. Hypertension - Uncontrolled - amlodipine 2.5 mg, losartan 25mg BID. Increase amlodipine 5mg - improved - Clonidine PRN - Monitor BP trend SAD exacerbation. - Further management per psychiatry Generalized weakness - PT eval and treat. Recommends home healthcare PT and rolling walker - Assist with ADLs DVT prophylaxis: Apixaban Discussed with nursing, patient, Dr. Jo Discharge Planning May DC home with home healthcare PT, nursing. Follow-up with PCP for BP management and anticoagulant Eliquis to continue. Paolo Packer Aug 28, 2017 08:11
[2017-08-28] MEDS: DOCUSATE SODIUM 50 MG/SENNA 8.6 MG TAB PO SCH ×2 (09:00→20:59)
[2017-08-28] MEDS: NICOTINE 21 MG/24 HR PATCH T-DERMAL SCH (09:00)
[2017-08-28] MEDS: amLODIPine BESYLATE 5 MG TAB PO SCH (09:24)
[2017-08-28] MEDS: risperiDONE 1 MG TAB PO SCH ×2 (09:24→20:54)
[2017-08-28] MEDS: LOSARTAN 25 MG TAB PO SCH ×2 (09:24→20:59)
[2017-08-28] MEDS: APIXABAN 5 MG TABLET PO SCH ×2 (09:24→20:55)
[2017-08-28] MEDS: BENZTROPINE MESYLATE 1 MG TAB PO SCH ×2 (09:24→20:53)
--- NOTE | 2017-08-28 10:37 | HHI.PYPN ---
Subjective Remarks Patient seen in her room with nurse, patient calm pleasant with me denies suicidality today, but states some vague voices persist. Is compliant with medications. At time sugars some mild confusion Review of Systems Except as stated in HPI: all other systems reviewed are Neg Mental Status Examination Appearance: Appropriate Consciousness: Alert Orientation: Person, Place, Date/Time Motor Activity: Abnormal gait (shuffling) Speech: Hesitant Language: Adequate Fund of Knowledge: Adequate Attention and Concentration: Adequate Memory: Unremarkable Mood: Good Affect: Other (reactive but delayed) Thought Process & Associations: Intact Thought Content: Appropriate Hallucination Type: None Delusion Type: None Suicidal Ideation: No Suicidal Plan: No Suicidal Intention: No Homicidal Ideation: No Homicidal Plan: No Homicidal Intention: No Insight: Fair Judgment: Adequate Results Vitals/IOs Vital Signs Date Time Temp Pulse Resp B/P (MAP) Pulse Ox O2 Delivery O2 Flow Rate FiO2 08/28/17 07:57 94 21 08/28/17 06:08 97.8 91 16 117/58 (77) 08/24/17 21:00 Nasal Cannula 1.00 Intake and Output 08/28/17 08/28/17 08/29/17 08:00 16:00 00:00 Intake Total 480 ml Balance 480 ml Assessment & Plan Problem List: (1) Schizoaffective disorder ICD Codes: F25.9 - Schizoaffective disorder, unspecified Status: Acute Assessment & Plan Estimated LOS: days patient continues with auditory hallucinations, compliant medications. At times shows show some mild confusion for now continue treatment Justification for Cont. Inpt. At this time patient will decompensate the placed in a lower level of care Discharge Planning Placement needs to be verified with counselor Problem Qualifiers (1) Schizoaffective disorder: Qualified Codes: F25.8 - Other schizoaffective disorders Ric Cardona MD Aug 28, 2017 10:37
[2017-08-28 18:00] VITALS: BP 122/66; PULSE 91; RESP 16; TEMP 97.4; O2SAT 96
[2017-08-28] MEDS: PANTOPRAZOLE SOD 40 MG DELAYED RELEASE TAB PO SCH (20:54)
[2017-08-28] MEDS: FERROUS SULFATE 325 MG (65 MG ELEMENTAL IRON) TAB PO SCH (20:54)
[2017-08-28] MEDS: FENOFIBRATE 48 MG TAB PO SCH (20:54)
[2017-08-28] MEDS: REMOVE OLD NICOTINE PATCH T-DERMAL SCH (21:00)
[2017-08-28 22:13] VITALS: O2SAT 96
[2017-08-29 04:28] VITALS: BP 137/64; PULSE 96; TEMP 98.3; O2SAT 98
[2017-08-29] MEDS ORDERED: AMLO5 PO (07:38)
[2017-08-29] MEDS ORDERED: COZA25TA PO (07:38)
--- NOTE | 2017-08-29 08:13 | HHI.PR ---
Subjective Remarks Follow-up visit pulmonary embolism, HTN, generalized weakness, constipation. Patient seen and examined today. States she is Ambulating the hallway during daytime with walker. Denies pain and discomfort. Denies SOB/ dyspnea. Denies chest pain, palpitations, headaches, dizziness. Denies fevers, chills, n/v/d. Objective Vitals Vital Signs Date Time Temp Pulse Resp B/P (MAP) Pulse Ox O2 Delivery O2 Flow Rate FiO2 08/29/17 04:28 98.3 96 137/64 (88) 98 08/28/17 22:13 96 21 08/28/17 18:00 97.4 91 16 122/66 (84) 96 I/O 08/28/17 08/28/17 08/28/17 08/29/17 08/29/17 08/29/17 06:59 14:59 22:59 06:59 14:59 22:59 Intake Total 360 ml 480 ml 1020 ml Balance 360 ml 480 ml 1020 ml Intake Oral 360 ml 480 ml 1020 ml # Voids 3 2 2 Result Diagram: 08/26/17 1125 08/26/17 1125 Imaging Last Impressions Chest X-Ray 08/22/17 0000 Signed Impressions: Service Date/Time: Tuesday, August 22, 2017 03:52 - CONCLUSION: Trace left base atelectasis. Ric Kemp MD CT Angiography 08/22/17 0000 Signed Impressions: Service Date/Time: Tuesday, August 22, 2017 12:38 - CONCLUSION: 1. Abnormal examination with upper and lower lobe proximal segmental pulmonary emboli bilaterally. There is overall moderate thrombus burden with mild prominence of the main pulmonary artery which may reflect some degree of pulmonary hypertension. No significant right heart strain by CT at this time. Filiberto Pleitez MD Abdomen/Pelvis CT 08/22/17 0000 Signed Impressions: Service Date/Time: Tuesday, August 22, 2017 12:28 - CONCLUSION: 1. Organizing subcutaneous right lower quadrant anterior abdominal wall induration likely postsurgical. This does not yet have the appearance of a focal drainable fluid collection. 2. Postsurgical features of right hemicolectomy without evidence for intra-abdominal abscess as questioned. Filiberto Pleitez MD Objective Remarks GENERAL: This is a well-nourished, appears older than stated age, well- developed patient, in no apparent distress. SKIN: Warm and dry. HEENT: Normocephalic. Pupils equal round and reactive. Nose without bleeding. Airway patent. Oral mucosa dry. NECK: Trachea midline. No JVD. Supple. CARDIOVASCULAR: Regular rate and rhythm without murmurs, gallops, or rubs. RESPIRATORY: Diminished bases R>L. No wheezes, rales, or rhonchi. GASTROINTESTINAL: Abdomen soft, non-tender, nondistended. Bowel Sounds hypoactive. MUSCULOSKELETAL: Extremities without clubbing, cyanosis, or edema. NEUROLOGICAL: Awake and alert. Oriented to place, person. Moves all extremities. Normal speech. A/P Problem List: (1) S/P colectomy ICD Code: Z90.49 - Acquired absence of other specified parts of digestive tract Status: Chronic (2) Schizoaffective disorder ICD Code: F25.9 - Schizoaffective disorder, unspecified Status: Acute (3) HTN (hypertension) ICD Code: I10 - Essential (primary) hypertension Status: Chronic (4) Diabetes mellitus ICD Code: E11.9 - Type 2 diabetes mellitus without complications (5) Pulmonary embolism during current hospitalization ICD Code: I26.99 - Other pulmonary embolism without acute cor pulmonale Assessment and Plan This is a 67-year-old female with a history of hypertension, hyperlipidemia, SAD and colon cancer s/p colectomy. She presented originally to the emergency room for altered mental status. She was treated on the medical floor and then transferred to psych unit. Pulmonary Embolism, Acute - D dimer 9.8, NS bolus given x1, Lovenox full strength given x 1 - CT pulmonary angiogram Abnormal examination with upper and lower lobe proximal segmental pulmonary emboli bilaterally. There is overall moderate thrombus burden with mild prominence of the main pulmonary artery which may reflect some degree of pulmonary hypertension. No significant right heart strain by CT at this time. - Chest x-ray showed trace left base atelectasis. Incentive spirometer. Duonebs - Apixaban 10 mg twice a day 7 days then apixaban 5 mg twice a day. - O2 nasal cannula, titrate to O2 sat greater than 90%. Now tolerating RA - Needs to increase physical activity. OOB to chair, ambulation - Clarified with patient states she doesn't have any previous PE. She may need Eliquis for 3 months. She needs to follow up with her PCP for further management. SIRS, elevated HR, lactic 2.1, unknown source, s/p colectomy - Resolved -CT abdomen ordered given history of colectomy showed1. Organizing subcutaneous right lower quadrant anterior abdominal wall induration likely postsurgical. This does not yet have the appearance of a focal drainable fluid collection. 2. Postsurgical features of right hemicolectomy without evidence for intra-abdominal abscess as questioned. - Possibly related to PE. - Blood cultures no growth in 5 days. WBC trended down - Resolved. Hypertension - Uncontrolled - amlodipine 2.5 mg, losartan 25mg BID. Increase amlodipine 5mg - improved - Clonidine PRN - Monitor BP trend SAD exacerbation. - Further management per psychiatry Generalized weakness - PT eval and treat. Recommends home healthcare PT and rolling walker - Assist with ADLs DVT prophylaxis: Apixaban Discussed with nursing, patient, Dr. Sandro Blanco from Hospitalist standpoint. Make transfers regular psych unit or discharge home with home health care. We will sign off. Reconsult as needed. Discharge Planning May DC home with home healthcare PT, nursing. Follow-up with PCP for BP management and anticoagulant Eliquis to continue. Problem Qualifiers (1) Schizoaffective disorder: Qualified Codes: F25.8 - Other schizoaffective disorders Paolo Packer Aug 29, 2017 08:13
[2017-08-29] MEDS ORDERED: RISP2TAB2 PO (08:59)
[2017-08-29] MEDS ORDERED: Benztropine PO (08:59)
[2017-08-29] MEDS: NICOTINE 21 MG/24 HR PATCH T-DERMAL SCH (09:00)
[2017-08-29] MEDS: DOCUSATE SODIUM 50 MG/SENNA 8.6 MG TAB PO SCH (09:00)
[2017-08-29] MEDS: BENZTROPINE MESYLATE 1 MG TAB PO SCH (09:05)
[2017-08-29] MEDS: APIXABAN 5 MG TABLET PO SCH (09:05)
[2017-08-29] MEDS: LOSARTAN 25 MG TAB PO SCH (09:06)
[2017-08-29] MEDS: amLODIPine BESYLATE 5 MG TAB PO SCH (09:06)
[2017-08-29] MEDS: risperiDONE 1 MG TAB PO SCH (09:06)
[2017-08-29 09:07] VITALS: BP 129/60; PULSE 97
--- NOTE | 2017-08-29 17:29 | HHI.DS ---
Psychiatry Discharge Summary Inpatient Psychiatric care?: Yes Advance Directive: No Reason Not Provided: refused Mental Health AdvanceDirective: No Health Care Proxy: No Admission Admission Date Aug 15, 2017 at 18:33 Admission Diagnosis: (1) Schizoaffective disorder ICD Code: F25.9 - Schizoaffective disorder, unspecified (2) Pulmonary embolism during current hospitalization ICD Code: I26.99 - Other pulmonary embolism without acute cor pulmonale Brief History From Dr. Arzate's H&P: Patient is a 67-year-old woman, with 2 adult children, retired on social security benefits with a past psychiatric history of depression, bipolar disorder as per patient, 2 prior psychiatric hospitalizations, no previous suicide attempts or self-injurious behavior was brought into the hospital under [facility] act as it was reported the patient was manic, confused, psychotic. Patient was transferred to the inpatient psychiatric unit for further management and evaluation. Patient was found lying in hospital bed but able to engage in interview today. Patient states that she had a colonoscopy to get the cancer out where she was diagnosed on 08/05/17. She states that she is here to find out why sees afraid, referring to the to have chemotherapy for recent cancer diagnoses or surgery. She states that her brought her to the hospital as he was afraid that she was trying to hurt herself. Patient was unable to elaborate on why has been was afraid she would hurt herself. Patient states that she has stated that she wanted to hurt herself. Patient reports her mood being pretty good for the past couple of weeks, but unsure if she had been feeling sad or depressed. Patient states that she sleep has been kind of edgy that his appetite energy or concentration denies suicidal ideations denies any decrease in hobbies or activities, denies any auditory or visual hallucinations denies any delusions at this time. Patient also mentions I think the baby apartment is behind me but was unable to elaborate patient also noted during interview to be stating that she had tomatoes brought in her IV and when asked why tomatoes she states it makes my blood red. Patient noted to be tangential confused at times since I disorganized during interview. Psychiatric family history: Denies Past psychiatric history: Self-reported diagnosis of bipolar disorder and depression, two previous psychiatric hospitalization, denies any previous suicide attempt or self-injurious behavior. She denies any history of physical or sexual abuse in the past. Substance use disorder: Alcohol use twice per year. Patient denies any previous illegal substance use. Past medical history: Diabetes mellitus Allergies: NKDA Social history: with 2 adult children, retired on social security benefits reports having moved to [place] in February.. On my exam today: Patient seen and examined with nurse. Chart reviewed. Case discussed with nursing staff. On my examination today, the patient presents as somewhat disinhibited, pulling up her gown to expose her brassiere. She seems a little confused and repeats herself several times during the interview. She explains that she recently underwent a "colonoscopy" by Dr. Hutchinson. Since then her mood has been, in her words "too happy." Sleep somewhat disrupted. Associations a little loose. Endorses VH of "men." No reported AH. Denies suicidal or homicidal ideation but it is unclear that she is reliable contract for safety. Remainder of the psychiatric ROS is negative. Past psychiatric history: The patient denies a history of psychiatric issues to me, although she apparently reported some history of depression to Dr. Arzate. She denies a history of psychiatric admissions or suicide attempts. Family history: The patient denies a family history of mental illness. Chemical dependency history: The patient denies any abuse of drugs or alcohol. Social history: The patient is originally from [facility]. She lives with her . She has 2 grown children. She is retired and used to work for the [employer]. She has a masters degree. Tobacco Use In Past 30 Days: No Tobacco Past 30 Days Alcohol Use: Never Hospital Course Patient is a 67-year-old woman, with 2 adult children, retired on social security benefits with a past psychiatric history of depression, bipolar disorder as per patient, 2 prior psychiatric hospitalizations, no previous suicide attempts or self-injurious behavior was brought into the hospital under [facility] act as it was reported the patient was manic, confused, psychotic. Patient was transferred to the inpatient psychiatric unit for further management and evaluation. Patient was admitted to the inpatient psychiatric unit for further evaluation and management. Patient was started on risperidone 1mg PO BID and titrated up to 2mgAM/3mgHS which she tolerated but had been noted to have EPS (parkinsonism ) which medication was downtitrated to 2mg PO BID with the addition of benzotropine 1mg PO BID which good effect. Patient during admission had pulmonary embolism which she was transferred to the medical/psychiatry unit for further medical management of the same. Patient was started on L requests as per medical team continued on this up to her discharge. Patient responded well to treatment, was noted to be cooperative with staff, no behavioral dyscontrol during admission and was active in groups and activities. Upon discharge patient reported feeling good denied any perceptual disturbances nor suicidal ideations or homicidal ideations. Patient agreed to continue treatment and follow up appointments for continuity of care. Patient advised to call 911 or go nearest ED in case of emergency. Patient agreed with plan. Results Blood Pressure 129 / 60 Vital Signs Date Time Temp Pulse Resp B/P (MAP) Pulse Ox O2 Delivery O2 Flow Rate FiO2 08/29/17 09:07 97 129/60 (83) 08/29/17 04:28 98.3 98 08/28/17 22:13 21 08/28/17 18:00 16 Laboratory Results Test 08/16/17 07:37 Cholesterol Level 142 MG/DL (120-200) HDL Cholesterol 29.2 MG/DL (40.0-60.0) Hemoglobin A1c 5.5 % (4.3-6.0) LDL Cholesterol 68 MG/DL (0-99) Triglycerides Level 223 MG/DL (42-150) Summary of Procedures None Imaging Last Impressions Chest X-Ray 08/22/17 0000 Signed Impressions: Service Date/Time: Tuesday, August 22, 2017 03:52 - CONCLUSION: Trace left base atelectasis. Ric Kemp MD CT Angiography 08/22/17 0000 Signed Impressions: Service Date/Time: Tuesday, August 22, 2017 12:38 - CONCLUSION: 1. Abnormal examination with upper and lower lobe proximal segmental pulmonary emboli bilaterally. There is overall moderate thrombus burden with mild prominence of the main pulmonary artery which may reflect some degree of pulmonary hypertension. No significant right heart strain by CT at this time. Filiberto Pleitez MD Abdomen/Pelvis CT 08/22/17 0000 Signed Impressions: Service Date/Time: Tuesday, August 22, 2017 12:28 - CONCLUSION: 1. Organizing subcutaneous right lower quadrant anterior abdominal wall induration likely postsurgical. This does not yet have the appearance of a focal drainable fluid collection. 2. Postsurgical features of right hemicolectomy without evidence for intra-abdominal abscess as questioned. Filiberto Pleitez MD Pending results at discharge: No Medications # of Antipsychotic meds at D/C: 1 Approp Antipsych med options 1 - Minimum of three failed multiple trials of monotherapy. 2 - Documented plan to taper to monotherapy due to previous use of multiple meds OR cross-taper in progress at D/C. 3 - Documentation of augmentation of Clozapine. 4 - Justification other than those listed in allowable values 1-3, document here : Discharge Discharge Date: Aug 29, 2017 Discharge Diagnosis: (1) Schizoaffective disorder Diagnosis: Principal ICD Code: F25.9 - Schizoaffective disorder, unspecified Status: Acute (2) Pulmonary embolism during current hospitalization Diagnosis: Secondary ICD Code: I26.99 - Other pulmonary embolism without acute cor pulmonale Pt Condition on Discharge: Stable Discharge Disposition: Discharge Home Discharge Instructions Diet Instructions: Heart Healthy Diet Activities you can perform: Regular-No Restrictions Scheduled Appointment: Driss Walters Appointment Date: Aug 30, 2017 Appointment Time: 07:30am Discharge Time > 30 minutes Mental Status Examination Appearance: Appropriate Consciousness: Alert Orientation: Person, Place, Date/Time Motor Activity: Abnormal gait (shuffling) Speech: Unremarkable Language: Adequate Fund of Knowledge: Adequate Attention and Concentration: Adequate Memory: Unremarkable Mood: Good Affect: Euthymic Thought Process & Associations: Intact Thought Content: Appropriate Hallucination Type: None Delusion Type: None Suicidal Ideation: No Suicidal Plan: No Suicidal Intention: No Homicidal Ideation: No Homicidal Plan: No Homicidal Intention: No Insight: Fair Judgment: Adequate Discharge/Advance Care Plan Health Problems: (1) Schizoaffective disorder Goals to promote your health * To prevent worsening of your condition and complications * To maintain your health at the optimal level Directions to meet your goals Take your medications as prescribed Follow your dietary instruction Follow activity as directed Keep your appointments as scheduled Take your immunizations and boosters as scheduled If your symptoms worsen call your PCP, if no PCP go to Urgent Care Center or Emergency Room For 24/ questions related to your inpatient stay or results of tests pending at discharge, please contact Dr. Te Arzate at Smoking is Dangerous to Your Health. Avoid second hand smoking Problem Qualifiers (1) Schizoaffective disorder: Qualified Codes: F25.8 - Other schizoaffective disorders Te Arzate MD Aug 29, 2017 17:28
[2017-08-29] MEDS ORDERED: APIXABAN 5 MG TABLET PO SCH (21:00)
== END 2017-08-29 14:20 | disposition home or self-care (01) | DRG 885 ==
LOC: H260 18:33 → H4EA 08-22 03:50
PROVIDERS: ADMIT Student in an Organized Health Care Education/Training Program; ATTEND Student in an Organized Health Care Education/Training Program
DX: F25.9 Schizoaffective disorder, unspecified (principal); I26.99 Other pulmonary embolism without acute cor pulmonale; G93.40 Encephalopathy, unspecified; R65.10 Systemic inflammatory response syndrome (SIRS) of non-infectious origin without acute organ dysfunction; C18.9 Malignant neoplasm of colon, unspecified; E11.9 Type 2 diabetes mellitus without complications; I10 Essential (primary) hypertension; E78.5 Hyperlipidemia, unspecified; K59.00 Constipation, unspecified; Z79.84 Long term (current) use of oral hypoglycemic drugs; Z90.49 Acquired absence of other specified parts of digestive tract; E87.6 Hypokalemia; D64.9 Anemia, unspecified; R45.1 Restlessness and agitation
CPT/HCPCS: 36600; 71010; 71275; 74176; 76937; 80048; 80053; 80061; 80076; 82150; 82805; 82948; 83036; 83605; 83690; 83735; 85007; 85025; 85027; 85379; 93005; 94620; 96361; 96372; G0378; J1650; J1815; J3480; J7030; Q9963; Q9967